=== PATIENT | female | born 1945 | race Hispanic/Latino ===

== ENCOUNTER 2019-02-20 16:25 | Emergency (ER) | payer OTHER ==
--- OUTSIDE RECORDS SUMMARY | 2019-02-20 16:29 | XMS REPORT | Clinical Summary ---
:1945 Author Organization [employer] Address [address] [place] [address] Care Team Providers Name Role Phone Kimmie Valdez MD Primary Care Provider Allergies Not on File Medications Not on file Active Problems Not on file Social History Tobacco Use Types Packs/Day Years Used Date Never Assessed Sex Assigned at Date Recorded Not on file Job Start Date Occupation Industry Not on file Not on file Not on file Travel History Travel Start Travel End No recent travel history available. Last Filed Vital Signs Not on file Plan of Treatment Health Maintenance Due Date Last Done Comments COLONOSCOPY SCREENING 1996 SHINGLES VACCINES (#1) 1996 BREAST CANCER SCREENING 02/21/2019 02/21/2017, 02/16/2016, 04/04/2013 INFLUENZA VACCINE 02/22/2019 65+ PNEUMOCOCCAL VACCINE Completed 06/02/2015, 06/07/2013 Procedures Procedure Name Priority Date/Time Associated Comments Diagnosis ESTIMATED GFR Routine 01/18/2019 12:07 Results for this PM CDT procedure are in the results section. 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 follow-up examination Vitamin B 12 deficiency Chronic kidney disease, stage III (moderate) (HCC) ESTIMATED GFR Routine 04/24/2018 10:05 Results for this AM CDT procedure are in the results section. URINALYSIS, AUTOMATED Routine 04/24/2018 10:05 Essential Results for this WITH MICROSCOPY AM CDT hypertension, procedure are in malignant the results Pemphigus vulgaris section. Chronic kidney disease, stage III (moderate) (HCC) Vitamin D deficiency VITAMIN D 25 HYDROXY Routine 04/24/2018 10:05 Essential Results for this LEVEL AM CDT hypertension, procedure are in malignant the results Pemphigus vulgaris section. Chronic kidney disease, stage III (moderate) (HCC) Vitamin D deficiency HC COMPLETE BLD COUNT Routine 04/24/2018 10:05 Essential Results for this W/AUTO DIFF AM CDT hypertension, procedure are in malignant the results Pemphigus vulgaris section. Chronic kidney disease, stage III (moderate) (HCC) Vitamin D deficiency THYROID STIMULATING Routine 04/24/2018 10:05 Essential Results for this HORMONE AM CDT hypertension, procedure are in malignant the results Pemphigus vulgaris section. Chronic kidney disease, stage III (moderate) (HCC) Vitamin D deficiency T4, FREE Routine 04/24/2018 10:05 Essential Results for this AM CDT hypertension, procedure are in malignant the results Pemphigus vulgaris section. Chronic kidney disease, stage III (moderate) (HCC) Vitamin D deficiency MAGNESIUM LEVEL Routine 04/24/2018 10:05 Essential Results for this AM CDT hypertension, procedure are in malignant the results Pemphigus vulgaris section. Chronic kidney disease, stage III (moderate) (HCC) Vitamin D deficiency LIPID PANEL Routine 04/24/2018 10:05 Essential Results for this AM CDT hypertension, procedure are in malignant the results Pemphigus vulgaris section. Chronic kidney disease, stage III (moderate) (HCC) Vitamin D deficiency COMPREHENSIVE Routine 04/24/2018 10:05 Essential Results for this METABOLIC PANEL AM CDT hypertension, procedure are in malignant the results Pemphigus vulgaris section. Chronic kidney disease, stage III (moderate) (HCC) Vitamin D deficiency after 02/19/2018 Results Estimated GFR (01/18/2019 12:07 PM CDT)Only the most recent of2 resultswithin the time period is included. Pathologist [facility] Estimated GFR 56 (A) mL/min/1.73 [facility] Comment: [address] G1 >=90 Normal or high G2 60-89Mildly decreased [id number] to moderately decreased [id number] to severely decreased G4 15-29Severely decreased G5 <15Kidney failure The eGFR was calculated using the Chronic Kidney Disease Epidemiology Collaboration (CKD-EPI) equation. Interpretation is based on recommendations of the National Kidney Foundation-Kidney Disease Outcomes Quality Initiative (NKF-KDOQI) published in 2014. Specimen Plasma specimen Performing Organization Address City/State/Zipcode Phone Number [facility] DEPARTMENT OF PATHOLOGY AND [address] [place] [address] [facility]OM[facility]IC[facility] [address] [place] [id number] [facility] CBC with platelet and differential (01/18/2019 12:07 PM CDT)Only the most recent of2 resultswithin the time period is included. [facility] WBC 6.03 4.50 - 11.00 k/uL [facility] RBC 3.31 (L) 4.20 - 5.50 m/uL [facility] HGB 9.6 (L) 12.0 - 16.0 g/dL [facility] HCT 31.5 (L) 37.0 - 47.0 % [facility] MCV 95.2 82.0 - 100.0 fL [facility] MCH 29.0 27.0 - 34.0 pg [facility] MCHC 30.5 (L) 31.0 - 37.0 g/dL [facility] RDW - SD 51.2 37.0 - 55.0 fL [facility] MPV 10.8 8.8 - 13.2 fL [facility] Platelet count 172 150 - 400 k/uL [facility] Nucleated RBC 0.00 /100 WBC [facility] Neutrophils 51.3 39.0 - 69.0 % [facility] Lymphocytes 34.7 25.0 - 45.0 % [facility] Monocytes 9.0 0.0 - 10.0 % [facility] Eosinophils 4.3 0.0 - 5.0 % [facility] Basophils 0.5 0.0 - 1.0 % [facility] Specimen Blood Performing Organization Address City/[facility] Phone Number [facility] DEPARTMENT OF PATHOLOGY AND [address] [place] [address] Thyroid stimulating hormone (01/18/2019 12:07 PM CDT)Only the most recent of2 resultswithin the time period is included. TSH 1.72 0.27 - 4.20 uIU/mL [facility] Specimen Plasma specimen Performing Organization Address [facility] Phone Number [facility] DEPARTMENT OF PATHOLOGY AND [address] [place] [address] T4, free (01/18/2019 12:07 PM CDT)Only the most recent of2 resultswithin the time period is included. T4, free 1.42 0.90 - 1.70 ng/dL [facility] Specimen Plasma specimen Performing Organization Address City/[facility] Phone Number [facility] DEPARTMENT OF PATHOLOGY AND [address] [place] [phone] [place] [address] B natriuretic peptide (01/18/2019 12:07 PM CDT) BNP 2,096 (H) 0 - 100 pg/mL [facility] Specimen Blood Performing Organization Address City/[facility]/Zipcode Phone Number [facility] DEPARTMENT OF PATHOLOGY AND [address] [place] [address] [address] [place] [address] Magnesium level (01/18/2019 12:07 PM CDT)Only the most recent of2 resultswithin the time period is included. Magnesium 2.1 1.6 - 2.4 mg/dL [facility] Specimen Plasma specimen Performing Organization Address [facility] Phone Number [facility] DEPARTMENT OF PATHOLOGY AND [address] [place] [address] [address] [place] [address] Comprehensive metabolic panel (01/18/2019 12:07 PM CDT)Only the most recent of2 resultswithin the time period is included. Sodium 143 135 - 148 [facility] mEq/L [facility] Potassium 3.1 (L) 3.5 - 5.0 [facility] mEq/L [facility] Chloride 105 98 - 112 mEq/L [facility] CO2 27 24 - 31 mEq/L [facility] Anion gap 11@ANIO 7 - 15 mEq/L [facility] BUN 27 (H) 8 - 23 mg/dL [facility] Creatinine 1.00 (H) 0.50 - 0.90 [facility] mg/dL [facility] Glucose 92 65 - 99 mg/dL [facility] Calcium 8.7 (L) 8.8 - 10.2 [facility] mg/dL [facility] Protein 7.1 6.3 - 8.3 g/dL [facility] Comment: [place] 4.6-7.0 g/dL HOSPITAL 1 week 4.4-7.6 g/dL 7 months-1year5.1-7.3 g/dL 1-2 years5.6-7.5 g/dL >3 years6.0-8.0 g/dL 18-150 6.3-8.3 g/dL Albumin 3.7 3.5 - 5.0 g/dL [facility] A/G ratio 1.1 0.7 - 3.8 [facility] Alkaline phosphatase 66 35 - 104 U/L [facility] AST 21 10 - 35 U/L [facility] ALT 9 5 - 50 U/L [facility] Total bilirubin 0.6 0.0 - 1.2 [facility] mg/dL [facility] Specimen Plasma specimen Performing Organization Address City/[facility]/Zipcode Phone Number [facility] DEPARTMENT OF PATHOLOGY AND [address] [place] [address] GENOMIC MEDICINE [facility] [address] [place] [id number] [facility] Vitamin D 25 hydroxy level (04/24/2018 10:05 AM CDT) Sarah Agrawal Vitamin D, 19.6 (L) 30.0 - 150.0 [facility] DEPARTMENT OF 25-hydroxy Comment: ng/mL PATHOLOGY AND This assay reports the sum of 25-hydroxy vitamin D3 and 25-hydroxy vitamin GENOMIC MEDICINE D2. Reference range: 0-17 years: Deficiency: less than 20ng/mL Optimum level: greater than or equal to 20 ng/mL. 18 years and older: Deficiency: less than 20ng/mL Insufficiency: 20-29 ng/mL Optimum Level: 30-80 ng/mL The assay reportable range is 3.4155.9 ng/mL. Levels higher than 150 ng/mL may be associated with toxicity. If toxicity is clinically suspected and the reported result is >155.9 ng/mL,contact lab for alternative methods to obtain a definitivelevel. If separate quantitation of 25-hydroxy vitamin D3 and 25-hydroxy vitamin D2 is needed, please contact lab for alternative methods. Specimen Blood Performing Organization Address City/State/Zipcode Phone Number [facility] DEPARTMENT OF PATHOLOGY AND [address] [place] [address] [facility] Urinalysis, automated with microscopy (04/24/2018 10:05 AM CDT) Pathologist Tanja Color, UA Yellow [facility] DEPARTMENT OF PATHOLOGY AND GENOMIC MEDICINE Appearance, UA Clear [facility] DEPARTMENT OF PATHOLOGY AND GENOMIC MEDICINE Specific gravity, 1.014 1.001 - 1.035 [facility] DEPARTMENT OF UA PATHOLOGY AND GENOMIC MEDICINE pH, UA 5.0 5.0 - 8.5 [facility] DEPARTMENT OF PATHOLOGY AND GENOMIC MEDICINE Protein, UA Negative Negative [facility] DEPARTMENT OF PATHOLOGY AND GENOMIC MEDICINE Glucose, UA Negative Negative [facility] DEPARTMENT OF PATHOLOGY AND GENOMIC MEDICINE Ketones, UA Negative Negative [facility] DEPARTMENT OF PATHOLOGY AND GENOMIC MEDICINE Bilirubin, UA Negative Negative [facility] DEPARTMENT OF PATHOLOGY AND GENOMIC MEDICINE Blood, UA Negative Negative [facility] DEPARTMENT OF PATHOLOGY AND GENOMIC MEDICINE Nitrite, UA Negative Negative [facility] DEPARTMENT OF PATHOLOGY AND GENOMIC MEDICINE Urobilinogen, UA Negative <2.0 [facility] DEPARTMENT OF PATHOLOGY AND GENOMIC MEDICINE Leukocyte esterase, Moderate (A) Negative [facility] DEPARTMENT OF UA PATHOLOGY AND GENOMIC MEDICINE Round epithelial Few 0 - 1 /HPF [facility] DEPARTMENT OF cells, PATHOLOGY AND GENOMIC MEDICINE WBC, UA 6-10 (H) 0 - 4 /HPF [facility] DEPARTMENT OF PATHOLOGY AND GENOMIC MEDICINE RBC, UA 0-5 0 - 5 /HPF [facility] DEPARTMENT OF PATHOLOGY AND GENOMIC MEDICINE Bacteria, UA None seen None seen [facility] DEPARTMENT OF PATHOLOGY AND GENOMIC MEDICINE Hyaline casts, UA 3-5 /LPF [facility] DEPARTMENT OF PATHOLOGY AND GENOMIC MEDICINE Yeast, UA None seen [facility] DEPARTMENT OF PATHOLOGY AND GENOMIC MEDICINE Yeast with None seen [facility] DEPARTMENT OF pseudohyphae, PATHOLOGY AND GENOMIC MEDICINE Specimen Urine Performing Organization Address City/State/Zipcode Phone Number [facility] DEPARTMENT OF PATHOLOGY AND [address] [place] [address] [facility] MEDICINE Lipid panel (04/24/2018 10:05 AM CDT) Cholesterol 151 <200 mg/dL [facility] DEPARTMENT OF PATHOLOGY AND GENOMIC MEDICINE Triglycerides 70 <150 mg/dL [facility] DEPARTMENT OF PATHOLOGY AND GENOMIC MEDICINE HDL cholesterol 72 >40 mg/dL [facility] DEPARTMENT OF PATHOLOGY AND GENOMIC MEDICINE LDL cholesterol 70Comment: Result <100 mg/dL [facility] DEPARTMENT obtained by direct OF PATHOLOGY AND LDL measurement GENOMIC MEDICINE Lipid panel SeeBelow [facility] DEPARTMENT interpretation Comment: OF PATHOLOGY AND Total Cholesterol (mg/dL) GENOMIC MEDICINE <200 Desirable [id number] >=240High Triglycerides (mg/dL) <150 Normal [id number] 200-499High >=500Very high HDL Cholesterol (mg/dL) <40Low (male) <40Low (female) LDL Cholesterol (mg/dL) <100 Optimal 100-129Near or above optimal [id number] 160-189High >=190Very high Risk Catergories that modify LDL goals. Risk CatergoriesLDL goal (mg/dL) CHD and CHD risk equivalent<100 (10-year risk >20%) Multiple (2+) risk factors <130 (10-year risk=<20%) 0-1 risk factors <160 (<10-year risk) Defining levels of lipids in metabolic syndrome Triglycerides>=150 mg/dL HDL Cholesterol Men<40 mg/dL Women<40 mg/dL Non-HDL cholesterol is a second target for therapy in persons with high triglycerides (>=200 mg/dL) Specimen Plasma specimen Performing Organization Address City/State/Zipcode Phone Number [facility] DEPARTMENT OF PATHOLOGY AND [address] [place] [phone] [facility] after 02/19/2018 Advance Directives Patient has advance care planning documents on file. For more information, please contact:[place] [address]
--- OUTSIDE RECORDS SUMMARY | 2019-02-20 16:33 | XMS REPORT | Continuity of Care Document ---
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 [facility], [facility] [place] LT ELBOW PN Active 05/28/[address] LT ELBOW JOINT Active 05/28/20 [facility] INFECTION, LT [address] [place] [address] ELBOW PN Center MRSA2, 3 Active Problem 05/26/2015 06/03/13 MRSA pcr OPI Problem added by Discern Expert. [place] CATARACT1 Resolved Problem 06/06/2015 bilateral [facility] eye [facility], CARLA Horta Fracture Active Problem 06/06/2015 [facility], OPID [place] Hernia Resolved Problem 06/06/2015 [facility], OPID [place] Acute Resolved Problem 12/27/2018 [facility] pneumococcal Medical bronchitis Center, [place],M H OPID [place] Atrial Resolved Problem 12/27/2018 [facility] fibrillation Medical [place], [place],[facility] H OPID [place] CATARACT1 Resolved Problem 12/27/2018 bilateral eye [place], [place] Active Problem 12/27/2018 [facility], [place], [place] H OPID [place] NSTEMI - Non-ST Active Problem 12/27/2018 [facility] elevation [facility], [place],[facility] H OPID [place] 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 [facility] vulgaris [facility], [place],M H OPID [place] Septicemia Active Problem 12/27/2018 [facility], [place], [place],M H CARLA Horta Takotsubo Active Problem 12/27/2018 [facility] cardiomyopathy Medical Center, [place], [place],M H CARLA Horta DIR INFCT OF UNSP Active [facility] ELBOW IN Medical INFEC/PARASTC Center ABNORMAL LABS Active [place] DYSPNEA, Active [facility] UNSPECIFIED [place] ACUTE DIASTOLIC Active [facility] (CONGESTIVE) [place] HEART FAILU Medications Medication Details Route Status Patient Ordering Order Source Instructions Provider Date Warfarin 6 mg, 3 tab, Inactive Route: PO, 2019 [place] Drug form: TAB, Q5PM, Dosing Weight 57.455, kg, Start date: 12/25/18 17:00:00 CDT, Duration: 30 day, Stop date: 01/23/19 17:00:00 CDTNotes: Nurse to ensure documentation of patient education per anticoagulatio n policy. Avoid large intake of vitamin-K containing foods diet. (Same As: Coumadin) WASTE: F/P - P Waste Black; E - P Waste Black warfarin 2 mg oral 6 mg=3 tab, Active tablet PO, Q5PM, # 42 2019 [place] tab, 0 Refill(s), Pharmacy: [facility] Furosemide 40 MG 40 mg=1 tab, Active Oral Tablet PO, Daily, # 2019 [place] [Lasix] 30 tab, 0 Refill(s), Pharmacy: [facility] lisinopril 20 mg 20 mg=1 tab, Active 12/25[facility] oral tablet PO, BID, # 60 2019 [place] tab, 0 Refill(s), Pharmacy: [facility] atorvastatin 10 mg 20 mg=2 tab, Active oral tablet PO, Bedtime, # 2019 [place] 60 tab, 0 Refill(s), Pharmacy: [facility] Furosemide 40 MG 40 mg, 1 tab, Inactive 12/25[facility] Oral Tablet Route: PO, 2019 [place] [Lasix] Drug form: TAB, Daily, Dosing Weight 53.364, kg, Start date: 12/25/18 9:00:00 CDT, Duration: 30 day, Stop date: 01/23/19 9:00:00 CDTNotes: (Same as: Lasix) May cause GI upset. Give with food or milk. Omeprazole 40 mg, Route: No Longer PO, Drug form: Active 2019 [place] DRC, Daily, Dosing Weight 53.364, kg, Start date: 12/23/18 9:00:00 CDT, Duration: 30 day, Stop date: 01/21/19 9:00:00 CDT Simvastatin 80 mg, 2 tab, No Longer Route: PO, Active 2019 [place] Drug form: TAB, Bedtime, Dosing Weight 53.364, kg, Start date: 12/22/18 21:00:00 CDT, Duration: 30 day, Stop date: 01/20/19 21:00:00 CDTNotes: (Same as: Zocor) metoprolol 50 mg, 1 tab, No Longer tartrate Route: PO, Active 2019 [place] Drug form: TAB, Q12H, Dosing Weight 53.364, kg, Start date: 12/22/18 21:00:00 CDT, Duration: 30 day, Stop date: 01/21/19 9:00:00 CDTNotes: (Same as: Lopressor) hydrochlorothiazid 12.5 mg, 0.5 No Longer e 25 mg oral tab, Route: Active 2019 [place] tablet PO, Drug form: TAB, BID, Start date: 12/22/18 21:00:00 CDT, Duration: 30 day, Stop date: 01/21/19 9:00:00 CDTNotes: (Same as: Hydrodiuril) With food. lisinopril 20 mg, 1 tab, No Longer Route: PO, Active 2019 [place] Drug form: TAB, BID, Start date: 12/22/18 21:00:00 CDT, Duration: 30 day, Stop date: 01/21/19 9:00:00 CDTNotes: (Same as: Prinivil, Zestril) atorvastatin 20 mg, 2 tab, No Longer Route: PO, Active 2019 [place] Drug form: TAB, Bedtime, Dosing Weight 55.455, kg, Start date: 12/22/18 21:00:00 CDT, Duration: 30 day, Stop date: 01/20/19 21:00:00 CDTNotes: (Same As: Lipitor) Warfarin 5 mg, 1 tab, No Longer Route: PO, Active 2018 [place] Drug form: TAB, Q5PM, Dosing Weight 57.455, kg, Start date: 12/22/18 17:00:00 CDT, Duration: 30 day, Stop date: 01/20/19 17:00:00 CDTNotes: Nurse to ensure documentation of patient education per anticoagulatio n policy. Avoid large intake of vitamin-K containing foods diet. WASTE: F/P - P Waste Black; E - P Waste Black (Same As: Coumadin) Hydrochlorothiazid 1 tab, Route: Inactive e 12.5 MG / PO, Drug Form: 2019 [place] Lisinopril 20 MG TAB, Dosing Oral Tablet Weight 53.364, kg, BID, Start date: 12/22/18 17:00:00 CDT, Duration: 30 day, Stop date: 01/21/19 9:00:00 CDT Protonix 40 mg, 1 tab, No Longer Route: PO, Active 2018 [place] Drug form: ECTAB, Before Dinner, Start date: 12/22/18 16:30:00 CDT, Duration: 30 day, Stop date: 01/20/19 16:30:00 CDTNotes: Tablet should not be chewed or crushed. (Same as: Protonix) Lasix 40 mg, 4 mL, No Longer Route: IV, Active 2018 [place] Drug form: INJ, Q12H, Dosing Weight 55.455, kg, Start date: 12/22/18 9:00:00 CDT, Duration: 30 day, Stop date: 01/20/19 21:00:00 CDTNotes: (Same as: Lasix) MEDICATION WASTE Product Size: 40 mg Product Wasted: ___ mg Aspirin 81 mg, 1 tab, No Longer Route: PO, Active 2018 [place] Drug form: ECTAB, Daily, Dosing Weight 55.455, kg, Start date: 12/22/18 9:00:00 CDT, Duration: 30 day, Stop date: 01/20/19 9:00:00 CDTNotes: Do not crush or chew. (Same As: Ecotrin) predniSONE 10 mg 4 tabs, PO, No Longer oral tablet Daily, 0 Active 2018 [place] Refill(s) Enoxaparin 40 mg, Route: Inactive SUB-Q, Drug 2018 [place] form: INJ, [id number], Dosing Weight 55.455, kg, Start date: 12/21/18 23:00:00 CDT, Duration: 30 day, Stop date: 01/19/19 23:00:00 CDT Bisacodyl 10 mg, 1 supp, No Longer Route: CO, Active 2018 [place] Drug form: SUPP, Daily, Dosing Weight 55.455, kg, PRN Constipation, Start date: 12/21/18 22:15:00 CDT, Duration: 30 day, Stop date: 01/20/19 22:14:00 CDTNotes: (Same As: Dulcolax, Bisco-Lax) Ondansetron 4 mg, 2 mL, No Longer Route: IVP, Active 2018 [place] Drug form: INJ, Q8H, Dosing Weight 55.455, kg, PRN Nausea & Vomiting, Start date: 12/21/18 22:15:00 CDT, Duration: 30 day, Stop date: 01/20/19 22:14:00 CDTNotes: (Same as: Tori) MEDICATION WASTE Product Size: 4 mg Product Wasted: ___ mg Melatonin 3 mg, 1 tab, No Longer Route: PO, Active 2018 [place] Drug form: TAB, Bedtime, Dosing Weight 55.455, kg, PRN Insomnia, Start date: 12/21/18 22:15:00 CDT, Duration: 30 day, Stop date: 01/20/19 22:14:00 CDTNotes: (Same as: Melatonin) Acetaminophen 650 mg, 2 tab, No Longer Route: PO, Active 2019 [place] Drug form: TAB, Q4H, Dosing Weight 55.455, kg, PRN Pain 1-3/Temp > 100.4 F, Start date: 12/21/18 22:15:00 CDT, Duration: 30 day, Stop date: 01/20/19 22:14:00 CDTNotes: Do not exceed 4 gm/day. (Same as: Tylenol) Glucagon 1 mg, Route: No Longer IM, Drug form: Active 2018 [place] PDR/INJ, PRN, Dosing Weight 55.455, kg, PRN Blood Glucose Results, Start date: 12/21/18 22:15:00 CDT, Duration: 30 day, Stop date: 01/20/19 22:14:00 CDT Dextrose 50% 25 gm, 50 mL, No Longer Syringe Route: IVP, Active 2018 [place] Drug Form: INJ, Dosing Weight 55.455, kg, PRN, PRN Blood Glucose Results, Start date: 12/21/18 22:15:00 CDT, Duration: 30 day, Stop date: 01/20/19 22:14:00 CDT potassium 30 mmol, 10 No Longer phosphate mL, Route: Active 2018 [place] IVPB, PRN, Dosing Weight 55.455, kg, PRN Abnormal Lab Result, For NON-ICU Patients Only., Start date: 12/21/18 22:12:00 CDT, Duration: 30 day, Stop date: 01/20/19 22:11:00 CDTNotes: (Same as: K Phosphate.) Do not infuse phosphorous concurrently in the same line as TPN or IVF that contains calcium. For double lumen central lines, phosphorous may be infused in a separate lumen from TPN. 1 mMol phoshate has 1.47 mEq potassium Infuse over 4 hours Calcium Gluconate 2 gm, 20 mL, No Longer Route: IVPB, Active 2018 [place] PRN, Dosing Weight 55.455, kg, PRN Abnormal Lab Result, For NON-ICU Patients Only., Start date: 12/21/18 22:12:00 CDT, Duration: 30 day, Stop date: 01/20/19 22:11:00 CDTNotes: WASTE: F/P - Sink; E - Municipal Trash Bin Magnesium Sulfate 2 gm, 50 mL, No Longer Route: IVPB, Active 2018 [place] Drug form: INJ, PRN, Dosing Weight 55.455, kg, PRN Abnormal Lab Result, For NON-ICU Patients Only., Start date: 12/21/18 22:12:00 CDT, Duration: 30 day, Stop date: 01/20/19 22:11:00 CDTNotes: WASTE: F/P - Sink; E - Municipal Trash Bin sodium phosphate 15 mmol, 5 mL, No Longer Route: IVPB, Active 2018 [place] PRN, Dosing Weight 55.455, kg, PRN Abnormal Lab Result, For NON-ICU Patients Only., Start date: 12/21/18 22:12:00 CDT, Duration: 30 day, Stop date: 01/20/19 22:11:00 CDTNotes: Infuse over 4 hour. Do not infuse phosphorous concurrently in the same line as TPN or IVF that contains calcium. For double lumen central lines, phosphorous may be infused in a separate lumen from TPN. potassium 2 pkt, Route: No Longer phosphate-sodium PO, Drug Form: Active 2018 [place] phosphate 250 PDR/REC, mg-280 mg-160 mg Dosing Weight oral powder for 55.455, kg, reconstitution PRN, PRN Abnormal Lab Result, For NON-ICU Patients Only, Start date: 12/21/18 22:12:00 CDT, Duration: 30 day, Stop date: 01/20/19 22:11:00 CDTNotes: (Same as: Phos-NaK) Each 1.5 gm pkt has 250mg phosphorous. Mix w/2.5oz water and stir. Magnesium Oxide 800 mg, 2 tab, No Longer Route: PO, Active 2018 [place] Drug form: TAB, PRN, Dosing Weight 55.455, kg, PRN Abnormal Lab Result, For NON-ICU Patients Only., Start date: 12/21/18 22:12:00 CDT, Duration: 30 day, Stop date: 01/20/19 22:11:00 CDTNotes: (Same as: Mag-Ox 400) Magnesium oxide [id number] elemental magnesium Dose=____mg magnesium oxide (___mg elemental magnesium) Potassium Chloride 20 mEq, 15 mL, No Longer Route: [place], Active 2018 [place] Drug form: LIQ, PRN, Dosing Weight 55.455, kg, PRN Abnormal Lab Result, For NON-ICU Patients Only, Start date: 12/21/18 22:12:00 CDT, Duration: 30 day, Stop date: 01/20/19 22:11:00 CDTNotes: (Same as: Potassium Chloride) Lasix 40 mg, 4 mL, Inactive Route: IVP, 2018 [place] Drug form: INJ, ONCE, Dosing Weight 55.455, kg, Priority: STAT, Start date: 12/21/18 20:59:00 CDT, Stop date: 12/21/18 20:59:00 CDTNotes: (Same as: Lasix) MEDICATION WASTE Product Size: 40 mg Product Wasted: ___ mg Saline Flush 0.9% 10 mL, Route: No Longer IVP, Drug Active 2018 [place] Form: INJ, Dosing Weight 55.455, kg, PRN, PRN Line Flush, Start date: 12/21/18 20:00:00 CDT, Duration: 30 day, Stop date: 01/20/19 19:59:00 CDTNotes: (Same as: BD Posiflush) Warfarin 4 mg, 2 tab, Inactive Route: PO, 2019 [facility] Drug form: TAB, Q5PM, Dosing Weight 62.273, kg, Priority: NOW, Start date: 10/22/18 17:47:00 CDT, Duration: 1 doses or times, Stop date: 10/22/18 17:47:00 CDTNotes: Nurse to ensure documentation of patient education per anticoagulatio n policy. Avoid large intake of vitamin-K containing foods diet. (Same As: Coumadin) WASTE: F/P - P Waste Black; E - P Waste Black Furosemide 20 MG 20 mg=1 tab, Active Oral Tablet PO, Daily, # 2019 [place] [Lasix] 30 tab, 0 Refill(s) potassium chloride 40 mEq, 2 tab, Inactive 20 mEq oral Route: PO, 2019 [facility] tablet, extended Drug form: release ERTAB, ONCE, Dosing Weight 62.273, kg, Start date: 10/22/18 16:14:00 CDT, Stop date: 10/22/18 16:14:00 CDTNotes: (Same as: K-Dur 20) "Do Not Crush" Give with food and full glass of water For patients unable to swallow tablet, dissolve in one half glass of water. Allow about 2 minutes for the tablets to disintegrate. Stir before giving to prepare slurry and administer. Please exclude Patients with feeding tube less than 14 Greek (Dobhoff, J-tube etc) and pediatric and patients. Aspirin 81 MG 81 mg=1 tab, Active Chewable Tablet PO, Bedtime, # 2019 [facility] 30 tab, 3 Refill(s) metoprolol 50 mg=1 tab, Active tartrate 50 mg PO, Q12H, # 60 2019 [facility] oral tablet tab, 0 Refill(s) metoprolol 50 mg, 1 tab, No Longer tartrate Route: PO, 2018 [facility] Drug form: TAB, Q12H, Dosing Weight 62.273, kg, Start date: 10/21/18 21:00:00 CDT, Duration: 30 day, Stop date: 11/20/18 9:00:00 CDTNotes: (Same as: Lopressor) pantoprazole 40 mg, 1 tab, No Longer Route: PO, 2018 [facility] Drug form: ECTAB, Before Dinner, Dosing Weight 65.455, kg, Start date: 10/21/18 16:30:00 CDT, Duration: 30 day, Stop date: 11/19/18 16:30:00 CDTNotes: Tablet should not be chewed or crushed. (Same as: Protonix) Insulin Glargine 15 unit, 0.15 No Longer mL, Route: 2018 [facility] SUB-Q, Drug form: SOLN, Daily, Dosing Weight 65.455, kg, Start date: 10/21/18 9:00:00 CDT, Duration: 30 day, Stop date: 11/19/18 9:00:00 CDTNotes: (Same as: Lantus) Do not hold insulin without contacting prescriber WASTE: F/P - Black; E - Municipal Trash Bin "single patient use only" Saline Flush 0.9% 10 ml, Route: No Longer IVP, Drug Active 2018 [facility] Form: INJ, Dosing Weight 65.455, kg, Q12H, Start date: 10/21/18 9:00:00 CDT, Duration: 30 day, Stop date: 11/19/18 21:00:00 CDTNotes: (Same as: BD Posiflush) Furosemide 40 mg, 4 mL, Inactive Route: IVP, 2018 [facility] Drug form: INJ, Q12H, Dosing Weight 65.455, kg, Start date: 10/21/18 9:00:00 CDT, Duration: 30 day, Stop date: 11/19/18 21:00:00 CDTNotes: (Same as: Lasix) MEDICATION WASTE Product Size: 40 mg Product Wasted: ___ mg Aspirin 81 MG 81 mg, 1 tab, No Longer Chewable Tablet Route: PO, Active 2018 [facility] Drug form: CHEWTAB, Bedtime, Dosing Weight 65.455, kg, Start date: 10/21/18 9:00:00 CDT, Duration: 30 day, Stop date: 11/19/18 21:00:00 CDTNotes: Take with food. Vitamin B 12 1,000 Active microgram, IM, 2018 [facility] takes IM at doctor's office once a month, 0 Refill(s) Insulin Lispro 6 unit, 0.06 No Longer mL, Route: Active 2018 [facility] SUB-Q, Drug form: SOLN, TID-Before Meals, Dosing Weight 65.455, kg, PRN Blood Glucose Results, Start date: 10/21/18 0:36:00 CDT, Duration: 30 day, Stop date: 11/20/18 0:35:00 CDTNotes: (Same as: Humalog ) Roll in palms of hands gently; Do not shake `vigorously. "Single Patient Use Only " WASTE: F/P - Black; E - Municipal Trash Bin Stable for 28 days at room temperature. Expires in days from Date Glucagon 1 mg, Route: No Longer IM, Drug form: Active 2018 [facility] PDR/INJ, PRN, Dosing Weight 65.455, kg, PRN Blood Glucose Results, Start date: 10/21/18 0:36:00 CDT, Duration: 30 day, Stop date: 11/20/18 0:35:00 CDT Dextrose 50% 12.5 gm, 25 No Longer Syringe mL, Route: Active 2018 [facility] IVP, Drug Form: INJ, Dosing Weight 65.455, kg, PRN, PRN Blood Glucose Results, Start date: 10/21/18 0:36:00 CDT, Duration: 30 day, Stop date: 11/20/18 0:35:00 CDT carvedilol 25 mg 25 mg=1 tab, No Longer oral tablet PO, BID, # 180 Active 2018 tab, 0 Refill(s) omeprazole 40 mg 40 mg=1 cap, Active oral delayed PO, Daily, # 2019 release capsule 30 cap, 0 Refill(s) baclofen 10 mg 10 mg=1 tab, Active oral tablet PO, BID, PRN 2019 Mus[place] Sp[place], 0 Refill(s) Warfarin Sodium 4 4 mg=1 tab, Active [place] Oral Tablet PO, Daily, # 2019 [Coumadin] 30 tab, 0 Refill(s) Alendronic acid 70 70 mg=1 tab, Active [place] Oral Tablet PO, Q7D, with 2019 6 to 8 ounces plain water, at least 30 minutes before first food, beverage, or medication of the day, # 12 tab, 3 Refill(s) simvastatin 80 mg 80 mg=1 tab, Active oral tablet PO, Bedtime, 0 2018 Refill(s) Hydrochlorothiazid 1 tab, PO, Active e 12.5 MG / BID, 0 2018 Lisinopril 20 MG Refill(s) Oral Tablet Mirtazapine 7.5 MG 7.5 mg=1 tab, No Longer Oral Tablet PO, Bedtime, # Active 2019 30 tab, 0 Refill(s) Calcium Gluconate 2 gm, 20 mL, No Longer Route: IVPB, Active 2018 PRN, Dosing Weight 65.455, kg, PRN Abnormal Lab Result, For NON-ICU Patients Only., Start date: 10/20/18 23:07:00 CDT, Duration: 30 day, Stop date: 11/19/18 23:06:00 CDTNotes: WASTE: F/P - Sink; E - Municipal Trash Bin Magnesium Oxide 800 mg, 2 tab, No Longer Route: PO, Active 2018 [facility] Drug form: TAB, PRN, Dosing Weight 65.455, kg, PRN Abnormal Lab Result, For NON-ICU Patients Only., Start date: 10/20/18 23:07:00 CDT, Duration: 30 day, Stop date: 11/19/18 23:06:00 CDTNotes: (Same as: Mag-Ox 400) Magnesium oxide [id number] elemental magnesium Dose=____mg magnesium oxide (___mg elemental magnesium) potassium 2 pkt, Route: No Longer phosphate-sodium PO, Drug Form: Active 2018 [facility] phosphate 250 PDR/REC, mg-280 mg-160 mg Dosing Weight oral powder for 65.455, kg, reconstitution PRN, PRN Abnormal Lab Result, For NON-ICU Patients Only, Start date: 10/20/18 23:07:00 CDT, Duration: 30 day, Stop date: 11/19/18 23:06:00 CDTNotes: (Same as: Phos-NaK) Each 1.5 gm pkt has 250mg phosphorous. Mix w/2.5oz water and stir. Magnesium Sulfate 2 gm, 50 mL, No Longer Route: IVPB, Active 2018 [facility] Drug form: INJ, PRN, Dosing Weight 65.455, kg, PRN Abnormal Lab Result, For NON-ICU Patients Only., Start date: 10/20/18 23:07:00 CDT, Duration: 30 day, Stop date: 11/19/18 23:06:00 CDTNotes: WASTE: F/P - Sink; E - Municipal Trash Bin potassium 30 mmol, 10 No Longer phosphate mL, Route: Active 2018 [facility] IVPB, PRN, Dosing Weight 65.455, kg, PRN Abnormal Lab Result, For NON-ICU Patients Only., Start date: 10/20/18 23:07:00 CDT, Duration: 30 day, Stop date: 11/19/18 23:06:00 CDTNotes: (Same as: K Phosphate.) Do not infuse phosphorous concurrently in the same line as TPN or IVF that contains calcium. For double lumen central lines, phosphorous may be infused in a separate lumen from TPN. 1 mMol phoshate has 1.47 mEq potassium Infuse over 4 hours sodium phosphate 15 mmol, 5 mL, No Longer Route: IVPB, Active 2018 [facility] PRN, Dosing Weight 65.455, kg, PRN Abnormal Lab Result, For NON-ICU Patients Only., Start date: 10/20/18 23:07:00 CDT, Duration: 30 day, Stop date: 11/19/18 23:06:00 CDTNotes: Infuse over 4 hour. Do not infuse phosphorous concurrently in the same line as TPN or IVF that contains calcium. For double lumen central lines, phosphorous may be infused in a separate lumen from TPN. Saline Flush 0.9% 10 ml, Route: No Longer IVP, Drug Active 2018 [facility] Form: INJ, Dosing Weight 65.455, kg, PRN, PRN Line Flush, Start date: 10/20/18 23:07:00 CDT, Duration: 30 day, Stop date: 11/19/18 23:06:00 CDTNotes: (Same as: BD Posiflush) Potassium Chloride 10 mEq, 100 No Longer mL, Route: 2018 [facility] IVPB, Drug form: INJ, PRN, Dosing Weight 65.455, kg, PRN Abnormal Lab Result, For NON-ICU Patients Only, Start date: 10/20/18 23:07:00 CDT, Duration: 30 day, Stop date: 11/19/18 23:06:00 CDTNotes: Infuse at a rate of 10 mEq/hr. (Same as: KCL) Ondansetron 4 mg, 2 mL, No Longer Route: IVP, Active 2018 [facility] Drug form: INJ, Q8H, Dosing Weight 65.455, kg, PRN Nausea & Vomiting, Start date: 10/20/18 23:07:00 CDT, Duration: 30 day, Stop date: 11/19/18 23:06:00 CDTNotes: (Same as: Zofran) MEDICATION WASTE Product Size: 4 mg Product Wasted: ___ mg Lasix 20 mg, 2 mL, No Longer Route: IVP, Active 2018 [facility] Drug form: INJ, ONCE, Dosing Weight 65.455, kg, Start date: 10/20/18 22:59:00 CDT, Stop date: 10/20/18 22:59:00 CDTNotes: (Same as: Lasix) MEDICATION WASTE Product Size: 40 mg Product Wasted: ___ mg Azithromycin 500 mg, Route: Inactive IVPB, ONCE, 2018 [facility] Dosing Weight 65.455, kg, Priority: STAT, Start date: 10/20/18 22:13:00 CDT, Stop date: 10/20/18 22:13:00 CDT, ABX Indication: PneumoniaNotes : (Same As: Zithromax IV) Ceftriaxone 1 gm, Route: Inactive IV, ONCE, 2018 [facility] Dosing Weight 65.455, kg, Priority: STAT, Start date: 10/20/18 22:12:00 CDT, Stop date: 10/20/18 22:12:00 CDT, ABX Indication: PneumoniaNotes : (Same As: Rocephin). Use with 100 mL NS and infuse over 30 min MEDICATION WASTE Product Size: 1000 mg Product Wasted: ___ mg Aspirin 325 MG 325 mg, 1 tab, Inactive Oral Tablet Route: PO, 2018 [facility] Drug form: TAB, ONCE, Dosing Weight 65.455, kg, Priority: STAT, Start date: 10/20/18 21:26:00 CDT, Stop date: 10/20/18 21:26:00 CDTNotes: Take with food. tramadol 50 mg=1 tab, Active [place] hydrochloride 50 PO, Q6H, PRN 2014 [facility] Oral Tablet Pain Score [facility] 1-3, # 40 tab, 0 Refill(s) amLODIPine 5 mg 5 mg=1 tab, Active [place] oral tablet PO, Bedtime, # 2015 [facility] 30 tab, 0 Center Refill(s) Saline Flush 0.9% 10 mL, Route: No Longer [place] IVP, Drug Active 2014 [facility] Form: INJ, Center Dosing Weight 65.455, kg, Q8H, Start date: 06/02/15 16:00:00, Duration: 30 day, Stop date: 07/02/15 8:00:00Notes: (Same as: BD Posiflush) lidocaine 1% 50 mg, 5 mL, No Longer [place] Route: MISC, Active 2014 [facility] Drug Form: Center INJ, Dosing Weight 65.455, kg, ONCALL, Start date: 06/02/15 11:00:00, Duration: 30 day, Stop date: 07/02/15 10:59:00Notes: (Same as: Xylocaine) Saline Flush 0.9% 10 mL, Route: No Longer [facility] IVP, Drug Active 2014 Medical Form: INJ, [place] Dosing Weight 65.455, kg, PRN, PRN Line Flush, Start date: 06/02/15 11:00:00, Duration: 30 day, Stop date: 07/02/15 10:59:00Notes: (Same as: BD Posiflush) Vancomycin 500 mg, Route: No Longer [facility] IV, [id number], Active 2014 Medical Dosing Weight [place] 65.455, kg, Start date: 06/02/15 9:00:00, Duration: 30 day, Stop date: 07/01/15 23:00:00Notes: TIME CRITICAL MEDICATION (Same As: Vancocin) Pneumovax 23 0.5 mL, Route: Inactive [place] IM, Drug Form: 2014 Medical INJ, Daily, Center Start date: 06/02/15 9:00:00, Duration: 1 doses or times, Stop date: 06/02/15 9:00:00Notes: (Same as: Pneumovax 23) Refrigerate metoprolol 25 mg, 1 tab, No Longer [facility] tartrate Route: PO, Active 2014 [facility] Drug form: Center TAB, Q12H, Dosing Weight 65.455, kg, Start date: 06/02/15 9:00:00, Duration: 30 day, Stop date: 07/01/15 21:00:00Notes: (Same as: Lopressor) lidocaine 1% 50 mg, 5 mL, No Longer [facility] Route: Active 2014 Medical INTRADERM, Center Drug Form: INJ, Dosing Weight 65.455, kg, ONCALL, Start date: 06/01/15 8:00:00, Duration: 30 day, Stop date: 07/01/15 7:59:00Notes: (Same as: Xylocaine) Saline Flush 0.9% 10 mL, Route: No Longer [facility] IVP, Drug Active 2014 Medical Form: INJ, Center Dosing Weight 65.455, kg, Q8H, Start date: 06/01/15 8:00:00, Duration: 30 day, Stop date: 07/01/15 0:00:00Notes: (Same as: BD Posiflush) Sodium Chloride 5 mL, Route: No Longer [facility] 0.154 MEQ/ML INTRADERM, Active 2014 Medical Injectable Drug Form: [place] Solution INJ, Dosing Weight 65.455, kg, ONCALL, Start date: 06/01/15 8:00:00, Duration: 30 day, Stop date: 07/01/15 7:59:00Notes: not for pediatric use. Saline Flush 0.9% 10 mL, Route: No Longer [facility] IVP, Drug Active 2014 Medical Form: INJ, Center Dosing Weight 65.455, kg, PRN, PRN Line Flush, Start date: 06/01/15 7:48:00, Duration: 30 day, Stop date: 07/01/15 7:47:00Notes: (Same as: BD Posiflush) cefepime 1 gm, Route: No Longer [facility] IVPB, Drug Active 2014 Medical form: INJ, Center [id number], Dosing Weight 65.455, kg, (CrCl >/=50 ml/min), Start date: 05/31/15 8:00:00, Duration: 30 day, Stop date: 06/30/15 0:00:00Notes: (Same As: Maxipime) MEDICATION WASTE Product Size: 1000 mg Product Wasted: ___ mg vancomycin + 750 mg, Route: No Longer [facility] Sodium Chloride IVPB, [id number], Active 2014 Medical 0.9% IV 250 mL Start date: [place] 05/31/15 8:00:00, Duration: 30 day, Stop date: 06/29/15 20:00:00Notes: TIME CRITICAL MEDICATION (Same As: Vancocin) Infusion rate 2001 mg: infuse over 2.5 hours MEDICATION WASTE Product Size: 1000 mg Product Wasted: ___ mg Vancomycin 1 gm, Route: Inactive [facility] IVPB, Drug 2014 Medical form: INJ, Center [id number], Dosing Weight 65.455, kg, Start date: 05/30/15 19:00:00, Duration: 30 day, Stop date: 06/29/15 7:00:00Notes: TIME CRITICAL MEDICATION (Same As: Vancocin) Infusion rate 2001 mg: infuse over 2.5 hours MEDICATION WASTE Product Size: 1000 mg Product Wasted: ___ mg Amlodipine 5 mg, 1 tab, No Longer [facility] Route: PO, Active 2014 Medical Drug form: Center TAB, Bedtime, Dosing Weight 65.455, kg, Priority: NOW, Start date: 05/30/15 18:27:00, Duration: 30 day, Stop date: 06/28/15 21:00:00Notes: (Same as: Norvasc) Ancef 1 gm, Route: No Longer [facility] IVPB, Drug Active 2014 Medical form: PDR/INJ, Center Q8H, Dosing Weight 65.455, kg, Start date: 05/29/15 21:00:00, Duration: 30 day, Stop date: 06/28/15 13:00:00Notes: (Same As: Ancef Kefzol) MEDICATION WASTE Product Size: 1000 mg Product Wasted: ___ mg Ondansetron 4 mg, 2 mL, Inactive [facility] Route: IVP, 2014 Medical Drug form: Center INJ, ONCE, Dosing Weight 65.455, kg, PRN Nausea & Vomiting, Start date: 05/29/15 20:37:00Notes: (Same as: Zofran) MEDICATION WASTE Product Size: 4 mg Product Wasted: ___ mg Naloxone 0.04 mg, 0.1 Inactive [facility] mL, Route: 2015 Medical IVP, Drug Center form: INJ, Q2MIN, Dosing Weight 65.455, kg, PRN Narcotic Reversal, Start date: 05/29/15 20:37:00, Duration: 8 doses or times, Stop date: 05/30/15 0:00:00Notes: Same as Narcan Morphine 2 mg, 1 mL, Inactive [facility] Route: IVP2014 Medical Drug form: [place] INJ, Q5Min, Dosing Weight 65.455, kg, PRN Pain Score 4-6, Start date: 05/29/15 20:37:00, Duration: 5 doses or times, Stop date: 05/30/15 0:00:00Notes: (Same as:MORPhine Sulfate) Flumazenil 0.2 mg, 2 mL, Inactive [facility] Route: IVP2014 Medical Drug form: [place] INJ, PRN, Dosing Weight 65.455, kg, PRN Benzodiazepine Reversal, Initial dose, Start date: 05/29/15 20:37:00, Duration: 30 day, Stop date: 06/28/15 20:36:00Notes: (Same as: Romazicon) Hydralazine 10 mg, 0.5 mL, Inactive [facility] Route: IVP2014 Medical Drug form: [place] INJ, Q20Min, Dosing Weight 65.455, kg, PRN Elevated BP, Start date: 05/29/15 20:37:00, Duration: 2 doses or times, Stop date: 05/30/15 0:00:00Notes: (Same as: Apresoline) Push over 5 minutes Labetalol 10 mg, 2 mL, Inactive [facility] Route: IVP2014 Medical Drug form: [place] INJ, Q5Min, Dosing Weight 65.455, kg, PRN Elevated BP, Start date: 05/29/15 20:37:00, Duration: 5 doses or times, Stop date: 05/30/15 0:00:00 Hydrocortisone 50 mg, 1 mL, No Longer [facility] Route: IVPB, Active 2014 Medical Drug form: [place] PDR/INJ, Q6H, Dosing Weight 65.455, kg, Start date: 05/29/15 18:00:00, Duration: 1 day, Stop date: 05/30/15 18:00:00Notes: (Same as: Solu-CORTEF) pneumococcal 0.5 mL, Route: Inactive [facility] capsular IM, Drug Form: 2014 Medical polysaccharide INJ, Daily, Center type 1 vaccine / Start date: pneumococcal 05/29/15 capsular 9:00:00, polysaccharide Duration: 1 type 10A vaccine / doses or pneumococcal times, Stop capsular date: 05/29/15 polysaccharide 9:00:00Notes: type 11A vaccine / (Same as: pneumococcal Pneumovax 23) capsular Refrigerate polysaccharide type 12F vaccine / pneumococcal capsular polysacchar Prednisone 10 mg, 1 tab, No Longer [facility] Route: PO, Active 2014 Medical Drug form: Center TAB, Daily, Dosing Weight 65.455, kg, Start date: 05/29/15 9:00:00, Duration: 30 day, Stop date: 06/27/15 9:00:00 Vitamin K1 2.5 mg, 0.25 Inactive [place] mL, Route: 2014 Medical SUB-Q, Drug Center form: INJ, ONCE, Dosing Weight 65.455, kg, Start date: 05/29/15 8:55:00, Duration: 1 doses or times, Stop date: 05/29/15 8:55:00Notes: (Same as: Aqua-[place]phy[place], Vitamin K) MEDICATION WASTE Product Size: 10 mg Product Wasted: ___ mg NS 1,000 mL 1,000 mL, Inactive [place] Rate: [address] [place] [address] ml/hr, Infuse [place] over: 10 hr, Route: IV, Dosing Weight 65.455 kg, Total Volume: 1,000, Start date: 05/29/15 0:15:00, Duration: 30 day, Stop date: 06/28/15 0:14:00 metoprolol 50 mg, 1 tab, No Longer [facility] tartrate Route: PO, Active 2014 Medical Drug form: [place] TAB, Q12H, Dosing Weight 65.455, kg, Start date: 05/28/15 21:00:00, Duration: 30 day, Stop date: 06/27/15 9:00:00Notes: (Same as: Lopressor) Enoxaparin 40 mg, 0.4 mL, No Longer [facility] Route: SUB-Q, Active 2014 Medical Drug form: [place] INJ, [id number], Dosing Weight 65.455, kg, Start date: 05/28/15 17:00:00, Duration: 30 day, Stop date: 06/26/15 17:00:00Notes: (Same as: Lovenox) Docusate 100 mg, 1 cap, No Longer [place] Route: PO, Active 2014 Medical Drug form: Center CAP, BID, Dosing Weight 65.455, kg, Start date: 05/28/15 17:00:00, Duration: 30 day, Stop date: 06/27/15 9:00:00 Acetaminophen 650 mg, 2 tab, No Longer [place] Route: PO, Active 2014 Medical Drug form: Center TAB, Q4H, Dosing Weight 65.455, kg, PRN Pain 1-3/Temp > 100.4 F, Start date: 05/28/15 16:12:00, Duration: 30 day, Stop date: 06/27/15 16:11:00Notes: Do not exceed 4 gm/day. (Same as: Tylenol) Senna Smooth 8.6 mg, 1 tab, No Longer [place] Route: PO, Active 2014 Medical Drug form: Center TAB, Q12H, Dosing Weight 65.455, kg, PRN Constipation, Start date: 05/28/15 16:12:00, Duration: 30 day, Stop date: 06/27/15 16:11:00Notes: (Same as: Senokot) Melatonin 3 mg, 1 tab, No Longer [place] Route: PO, Active 2014 Medical Drug form: Center TAB, Bedtime, Dosing Weight 65.455, kg, PRN Insomnia, Start date: 05/28/15 16:12:00, Duration: 30 day, Stop date: 06/27/15 16:11:00Notes: (Same as: Melatonin) Tramadol 50 mg, 1 tab, No Longer [place] Route: PO, Active 2014 Medical Drug form: Center TAB, Q6H, Dosing Weight 65.455, kg, PRN Pain Score 1-3, Start date: 05/28/15 16:12:00, Duration: 30 day, Stop date: 06/27/15 16:11:00 Acetaminophen 325 1 tab, Route: No Longer [place] MG / Hydrocodone PO, Drug Form: Active 2014 Medical Bitartrate 10 MG TAB, Dosing Center Oral Tablet Weight 65.455, kg, Q4H, PRN Pain Score 7-10, Start date: 05/28/15 16:12:00, Duration: 30 day, Stop date: 06/27/15 16:11:00 Ondansetron 4 mg, 2 mL, No Longer [place] Route: IVP, Active 2014 Medical Drug form: Center INJ, Q8H, Dosing Weight 65.455, kg, PRN Nausea & Vomiting, Start date: 05/28/15 16:12:00, Duration: 30 day, Stop date: 06/27/15 16:11:00Notes: (Same as: Tori) MEDICATION WASTE Product Size: 4 mg Product Wasted: ___ mg Acetaminophen 325 1 tab, Route: Inactive [place] MG / Hydrocodone PO, Drug Form: 2014 Medical Bitartrate 5 MG TAB, Dosing Center Oral Tablet Weight 65.455, kg, ONCE, STAT, Start date: 05/28/15 12:34:00, Stop date: 05/28/15 12:34:00 Allergies, Adverse Reactions, Alerts Substance Category Reaction Severity Reaction Status Date Comments Source type Reported No Known Assertion Drug Medication allergy [place] Allergies Immunizations Immunization Date Site Status Last Comments Source Given Updated pneumococcal Right completed Conneh [facility] 23-valent 5 Deltoid Medical vaccine [place],[facility] pneumococcal Right thigh completed Achuo [facility] 23-valent 3 [facility] vaccine [place],[facility], [facility] [place] Results Order Name Results Value Reference Date Interpretation Comments Source Range CHEM PANEL Magnesium 2.1 1.8 - 2.4 12/25 Lvl [place] ELECTROLYTE CO2 29 24 - 32 12/25 S [place] ELECTROLYTE Chloride Lvl 100 95 - 109 12/25 S [place] ELECTROLYTE Creatinine 1.29 0.50 - 12/25 S Lvl 1.40 /2018 [place] ELECTROLYTE Sodium Lvl 138 135 - 145 12/25 S [place] ELECTROLYTE Potassium 3.4 3.5 - 5.1 12/25 S Lvl [place] ELECTROLYTE Glucose Lvl 91 70 - 99 12/25 S [place] ELECTROLYTE BUN 29 7 - 22 12/25 S [place] ELECTROLYTE Calcium Lvl 8.3 8.5 - 10.5 12/25 S [place] ELECTROLYTE eGFR 41 12/25 [facility] Comment: The [place] eGFR is calculated using the CKD-EPI formula. In most young, healthy individuals the eGFR will be >90 mL/min/1.73m2 . The eGFR declines with age. An eGFR of 60-89 may be normal in some populations, particularly the elderly, for whom the CKD-EPI formula has not been extensively validated. Use of the eGFR is not recommended in the following populations:< br/>
[place] viduals with unstable creatinine concentration s, including patients and those with serious co-morbid conditions.<b r/>
Patie nts with extremes in muscle mass or diet.

The data above are obtained from the National Kidney Disease Education Program (NKDEP) which additionally recommends that when the eGFR is used in patients with extremes of body mass index for purposes of drug dosing, the eGFR should be multiplied by the estimated BMI. ELECTROLYTE AGAP 12.4 10.0 - 06 MH S 20.0 /2018 [place] HEMATOLOGY PT 19.2 12.0 - 12/25 MH 14.7 [place] HEMATOLOGY INR 1.65 0.85 - 12/25 MH 1.17 /2018 [place] HEMATOLOGY Hct 30.3 36.0 - 12/25 MH 48.0 /2018 [place] HEMATOLOGY WBC 5.6 3.7 - 10.4 12/25 [place] HEMATOLOGY Hgb 10.2 12.0 - 12/25 MH 16.0 /2018 [place] HEMATOLOGY RBC 3.39 4.20 - 06/ MH 5.40 /2019 [place] HEMATOLOGY Platelet 146 133 - 450 06/ MH /2018 [place] HEMATOLOGY MCH 30.1 27.0 - 06/ MH 31.0 /2018 [place] HEMATOLOGY MPV 9.8 7.4 - 10.4 12/25 MH [place] HEMATOLOGY MCV 89.5 80.0 - 12/25 MH 98.0 /2019 [place] HEMATOLOGY RDW 15.1 11.5 - 06/ MH 14.5 /2018 [place] HEMATOLOGY MCHC 33.6 32.0 - 06/ MH 36.0 [place] HEMATOLOGY Monocytes # 0.5 0.0 - 0.8 12/25 [place] HEMATOLOGY Eosinophils 0.3 0.0 - 0.5 12/25 MH # /2018 [place] HEMATOLOGY Eosinophils 4.8 0.0 - 4.0 12/25 [place] HEMATOLOGY Monocytes 9.6 2.0 - 12.0 12/25 [place] HEMATOLOGY Lymphocytes 29.9 20.0 - 12/25 MH 40.0 [place] HEMATOLOGY Segs 55.2 45.0 - 12/25 MH 75.0 [place] HEMATOLOGY Neutrophils 3.1 1.5 - 8.1 12/25 MH # /2018 [place] HEMATOLOGY Lymphocytes 1.7 1.0 - 5.5 12/25 [place] HEMATOLOGY Basophils 0.5 0.0 - 1.0 12/25 [place] CHEM PANEL eGFR 51 12/24 Result Comment: The [place] eGFR is calculated using the CKD-EPI formula. In most young, healthy individuals the eGFR will be >90 mL/min/1.73m2 . The eGFR declines with age. An eGFR of 60-89 may be normal in some populations, particularly the elderly, for whom the CKD-EPI formula has not been extensively validated. Use of the eGFR is not recommended in the following populations:< br/>
[place] viduals with unstable creatinine concentration s, including patients and those with serious co-morbid conditions.<b r/>
Patie nts with extremes in muscle mass or diet.

The data above are obtained from the National Kidney Disease Education Program (NKDEP) which additionally recommends that when the eGFR is used in patients with extremes of body mass index for purposes of drug dosing, the eGFR should be multiplied by the estimated BMI. CHEM PANEL Calcium Lvl 8.4 8.5 - 10.5 12/24 [place] CHEM PANEL CO2 30 24 - 32 12/24 [place] CHEM PANEL Sodium Lvl 139 135 - 145 12/24 [place] CHEM PANEL Potassium 3.5 3.5 - 5.1 12/24 MH Lvl [place] CHEM PANEL Chloride Lvl 101 95 - 109 12/24 [place] CHEM PANEL Glucose Lvl 87 70 - 99 12/24 [place] CHEM PANEL BUN 27 7 - 22 06/02 MH /2019 [place] CHEM PANEL Creatinine 1.09 0.50 - 06/02 MH Lvl 1.40 /2018 [place] CHEM PANEL AGAP 11.5 10.0 - 06/02 MH 20.0 /2018 [place] CHEM PANEL Magnesium 2.0 1.8 - 2.4 06/02 MH Lvl /2018 [place] HEMATOLOGY MCHC 33.5 32.0 - 06/02 MH 36.0 /2019 [place] HEMATOLOGY Hct 32.0 36.0 - 06/02 MH 48.0 /2019 [place] HEMATOLOGY MCH 30.1 27.0 - 06/02 MH 31.0 /2019 [place] HEMATOLOGY MCV 89.8 80.0 - 06/02 MH 98.0 /2019 [place] HEMATOLOGY MPV 10.2 7.4 - 10.4 06/02 MH /2018 [place] HEMATOLOGY Platelet 154 133 - 450 06/ MH /2018 [place] HEMATOLOGY RDW 14.9 11.5 - 06/02 MH 14.5 /2018 [place] HEMATOLOGY RBC 3.56 4.20 - 06/02 MH 5.40 [place] HEMATOLOGY Hgb 10.7 12.0 - 06/02 MH 16.0 /2019 [place] HEMATOLOGY WBC 5.7 3.7 - 10.4 06/02 MH /2019 [place] HEMATOLOGY INR 1.93 0.85 - 06/02 MH 1.17 [place] HEMATOLOGY PT 21.6 12.0 - 06/02 MH 14.7 /2018 [place] HEMATOLOGY Lymphocytes 31.8 20.0 - 06/02 MH 40.0 /2018 [place] HEMATOLOGY Monocytes 10.0 2.0 - 12.0 06/02 MH /2018 [place] HEMATOLOGY Eosinophils 3.3 0.0 - 4.0 06/02 MH /2019 [place] HEMATOLOGY Basophils 0.6 0.0 - 1.0 06/02 MH /2019 [place] HEMATOLOGY Segs 54.3 45.0 - 06/02 MH 75.0 /2019 [place] HEMATOLOGY Lymphocytes 1.8 1.0 - 5.5 06/02 MH # /2018 [place] HEMATOLOGY Monocytes # 0.6 0.0 - 0.8 06/02 MH /2018 [place] HEMATOLOGY Eosinophils 0.2 0.0 - 0.5 06/02 MH # /2018 [place] HEMATOLOGY Neutrophils 3.1 1.5 - 8.1 06/02 MH # /2018 [place] CHEM PANEL Magnesium 1.9 1.8 - 2.4 12/23 Lvl /2018 [place] CHEM PANEL Glucose Lvl 90 70 - 99 12/23 [place] CHEM PANEL eGFR 48 12/23 Result Comment: The [place] eGFR is calculated using the CKD-EPI formula. In most young, healthy individuals the eGFR will be >90 mL/min/1.73m2 . The eGFR declines with age. An eGFR of 60-89 may be normal in some populations, particularly the elderly, for whom the CKD-EPI formula has not been extensively validated. Use of the eGFR is not recommended in the following populations:< br/>
[place] viduals with unstable creatinine concentration s, including patients and those with serious co-morbid conditions.<b r/>
Patie nts with extremes in muscle mass or diet.

The data above are obtained from the National Kidney Disease Education Program (NKDEP) which additionally recommends that when the eGFR is used in patients with extremes of body mass index for purposes of drug dosing, the eGFR should be multiplied by the estimated BMI. CHEM PANEL Potassium 3.5 3.5 - 5.1 12/23 MH Lvl [place] CHEM PANEL BUN 29 7 - 22 12/23 [place] CHEM PANEL Creatinine 1.15 0.50 - 12/23 MH Lvl 1.40 /2018 [place] CHEM PANEL Sodium Lvl 141 135 - 145 12/23 [place] CHEM PANEL Chloride Lvl 103 95 - 109 12/23 [place] CHEM PANEL CO2 30 24 - 32 12/23 [place] CHEM PANEL Calcium Lvl 8.0 8.5 - 10.5 12/23 [place] CHEM PANEL AGAP 11.5 10.0 - 12/23 MH 20.0 [place] HEMATOLOGY Lymphocytes 1.9 1.0 - 5.5 12/23 MH # [place] HEMATOLOGY Eosinophils 0.2 0.0 - 0.5 12/23 # [place] HEMATOLOGY Monocytes # 0.7 0.0 - 0.8 12/23 [place] HEMATOLOGY Eosinophils 4.0 0.0 - 4.0 12/23 [place] HEMATOLOGY Neutrophils 3.0 1.5 - 8.1 06/01 MH # /2019 [place] HEMATOLOGY Lymphocytes 32.1 20.0 - 06/ MH 40.0 /2019 [place] HEMATOLOGY Basophils 0.4 0.0 - 1.0 06 MH /2018 [place] HEMATOLOGY Monocytes 11.8 2.0 - 12.0 06 MH /2018 [place] HEMATOLOGY Segs 51.7 45.0 - 06 MH 75.0 /2018 [place] HEMATOLOGY PT 23.8 12.0 - 06 MH 14.7 /2018 [place] HEMATOLOGY INR 2.18 0.85 - 06 MH 1.17 /2018 [place] HEMATOLOGY MPV 9.8 7.4 - 10.4 06 MH /2018 [place] HEMATOLOGY Hct 32.2 36.0 - 06 MH 48.0 [place] HEMATOLOGY RBC 3.55 4.20 - 12/23 MH 5.40 [place] HEMATOLOGY Hgb 10.6 12.0 - 12/23 MH 16.0 [place] HEMATOLOGY WBC 5.8 3.7 - 10.4 12/23 /2018 [place] HEMATOLOGY RDW 15.0 11.5 - 12/23 MH 14.5 [place] HEMATOLOGY MCV 90.7 80.0 - 06 MH 98.0 /2019 [place] HEMATOLOGY MCH 29.7 27.0 - 12/23 MH 31.0 [place] HEMATOLOGY Platelet 156 133 - 450 06 /2018 [place] HEMATOLOGY MCHC 32.8 32.0 - 06 MH 36.0 /2018 [place] CARDIAC Troponin-I 0.02 0.00 - 12/22 MH ENZYMES 0.40 [place] CHEM PANEL Alk Phos 60 39 - 136 12/22 [place] CHEM PANEL AST 19 0 - 37 12/22 [place] CHEM PANEL ALT 13 0 - 65 12/22 [place] CHEM PANEL A/G Ratio 0.8 0.7 - 1.6 12/22 [place] CHEM PANEL Bili Total 0.6 0.2 - 1.3 12/22 [place] CHEM PANEL B/C Ratio 24 6 - 25 12/22 [place] CHEM PANEL Globulin 3.5 2.7 - 4.2 12/22 [place] CHEM PANEL Total 6.3 6.4 - 8.4 12/22 [place] CHEM PANEL Albumin Lvl 2.8 3.5 - 5.0 12/22 [place] HEMATOLOGY PTT 47.8 22.9 - 12/22 MH 35.8 /2018 [place] CARDIAC Troponin-I <0.02 0.00 - 12/22 ENZYMES 0.40 [place] HEMATOLOGY PTT 45.1 22.9 - 12/22 MH 35.8 /2019 [place] CARDIAC Troponin-I <0.02 0.00 - 12/22 ENZYMES 0.40 [place] CARDIAC BNP 1583 <=100 12/22 ENZYMES pg/mL /2018 [place] CARDIAC Total CK 50 12 - 191 12/22 ENZYMES /2018 [place] CHEM PANEL Bili Total 0.6 0.2 - 1.3 12/22 [place] CHEM PANEL Alk Phos 68 39 - 136 12/22 [place] CHEM PANEL AST 22 0 - 37 12/22 [place] CHEM PANEL ALT 17 0 - 65 12/22 [place] CHEM PANEL Albumin Lvl 3.1 3.5 - 5.0 12/22 [place] CHEM PANEL Total 7.2 6.4 - 8.4 12/22 Protein /2018 [place] CHEM PANEL A/G Ratio 0.8 0.7 - 1.6 12/22 [place] CHEM PANEL Globulin 4.1 2.7 - 4.2 12/22 [place] CHEM PANEL B/C Ratio 26 6 - 25 12/22 [place] HEMATOLOGY PT 19.2 12.0 - 10/22 MH 14.7 2019 [facility] HEMATOLOGY INR 1.65 0.85 - 10/22 MH 1.17 [place] CHEM PANEL B/C Ratio 25 6 - 25 10/22 [place] CHEM PANEL Globulin 3.3 2.7 - 4.2 10/22 [facility] CHEM PANEL A/G Ratio 0.8 0.7 - 1.6 10/22 [facility] CHEM PANEL AGAP 12.4 10.0 - 10/22 MH 20.0 [place] CHEM PANEL eGFR 55 10/22 Result Comment: The [facility] eGFR is calculated using the CKD-EPI formula. In most young, healthy individuals the eGFR will be >90 mL/min/1.73m2 . The eGFR declines with age. An eGFR of 60-89 may be normal in some populations, particularly the elderly, for whom the CKD-EPI formula has not been extensively validated. Use of the eGFR is not recommended in the following populations:< br/>
[place] viduals with unstable creatinine concentration s, including patients and those with serious co-morbid conditions.<b r/>
Patie nts with extremes in muscle mass or diet.

The data above are obtained from the National Kidney Disease Education Program (NKDEP) which additionally recommends that when the eGFR is used in patients with extremes of body mass index for purposes of drug dosing, the eGFR should be multiplied by the estimated BMI. CHEM PANEL Sodium Lvl 141 135 - 145 10/22 [place] CHEM PANEL Chloride Lvl 105 95 - 109 10/22 [place] CHEM PANEL Potassium 3.4 3.5 - 5.1 10/22 Lvl /2018 [place] CHEM PANEL BUN 25 7 - 22 10/22 [place] CHEM PANEL Creatinine 1.02 0.50 - 10/22 Lvl 1.40 [place] CHEM PANEL Total 6.0 6.4 - 8.4 10/22 [place] CHEM PANEL Calcium Lvl 8.2 8.5 - 10.5 10/22 [place] CHEM PANEL CO2 27 24 - 32 10/22 [place] CHEM PANEL AST 21 0 - 37 10/22 [place] CHEM PANEL Alk Phos 51 39 - 136 10/22 [place] CHEM PANEL ALT 15 0 - 65 10/22 [place] CHEM PANEL Albumin Lvl 2.7 3.5 - 5.0 10/22 [place] CHEM PANEL Bili Total 0.7 0.2 - 1.3 10/22 [place] CHEM PANEL Glucose Lvl 81 70 - 99 10/22 [facility] HEMATOLOGY MPV 9.7 7.4 - 10.4 10/22 [facility] HEMATOLOGY Platelet 148 133 - 450 10/22 [facility] HEMATOLOGY MCV 93.6 80.0 - 10/22 98.0 [facility] HEMATOLOGY MCH 30.7 27.0 - 10/22 MH 31.0 [facility] HEMATOLOGY MCHC 32.8 32.0 - 10/22 MH 36.0 [facility] HEMATOLOGY RDW 13.7 11.5 - 10/22 MH 14.5 /2018 [facility] HEMATOLOGY RBC 3.21 4.20 - 10/22 MH 5.40 [facility] HEMATOLOGY Hct 30.0 36.0 - 10/22 MH 48.0 [facility] HEMATOLOGY WBC 6.8 3.7 - 10.4 10/22 [facility] HEMATOLOGY Hgb 9.8 12.0 - 10/22 MH 16.0 [facility] HEMATOLOGY Basophils 0.6 0.0 - 1.0 10/22 [facility] HEMATOLOGY Neutrophils 3.4 1.5 - 8.1 10/22 MH # /2019 [facility] HEMATOLOGY Monocytes # 0.8 0.0 - 0.8 10/22 [facility] HEMATOLOGY Eosinophils 0.2 0.0 - 0.5 10/22 [facility] HEMATOLOGY Lymphocytes 2.2 1.0 - 5.5 10/22 # [facility] HEMATOLOGY Eosinophils 3.6 0.0 - 4.0 10/22 [facility] HEMATOLOGY Monocytes 12.1 2.0 - 12.0 10/22 [facility] HEMATOLOGY Lymphocytes 33.2 20.0 - 10/22 MH 40.0 [facility] HEMATOLOGY Segs 50.5 45.0 - 10/22 MH 75.0 [facility] CARDIAC Troponin-I 0.03 0.00 - 10/21 ENZYMES 0.40 [facility] CHEM PANEL eGFR 61 10/21 Result Comment: The [facility] eGFR is calculated using the CKD-EPI formula. In most young, healthy individuals the eGFR will be >90 mL/min/1.73m2 . The eGFR declines with age. An eGFR of 60-89 may be normal in some populations, particularly the elderly, for whom the CKD-EPI formula has not been extensively validated. Use of the eGFR is not recommended in the following populations:< br/>
[place] viduals with unstable creatinine concentration s, including patients and those with serious co-morbid conditions.<b r/>
Patie nts with extremes in muscle mass or diet.

The data above are obtained from the National Kidney Disease Education Program (NKDEP) which additionally recommends that when the eGFR is used in patients with extremes of body mass index for purposes of drug dosing, the eGFR should be multiplied by the estimated BMI. CHEM PANEL Sodium Lvl 144 135 - 145 10/21 [place] CHEM PANEL Chloride Lvl 108 95 - 109 / [place] CHEM PANEL Potassium 3.4 3.5 - 5.1 03/ MH Lvl /2018 [place] CHEM PANEL Calcium Lvl 8.4 8.5 - 10.5 10/21 [place] CHEM PANEL CO2 28 24 - 32 03/ [place] CHEM PANEL Alk Phos 49 39 - 136 03 [place] CHEM PANEL Albumin Lvl 2.8 3.5 - 5.0 10/21 [place] CHEM PANEL Total 6.2 6.4 - 8.4 10/21 MH [place] CHEM PANEL ALT 16 0 - 65 10/21 [place] CHEM PANEL AST 23 0 - 37 10/21 [place] CHEM PANEL Bili Total 0.6 0.2 - 1.3 10/21 [place] CHEM PANEL Glucose Lvl 79 70 - 99 10/21 [place] CHEM PANEL Creatinine 0.95 0.50 - 03 MH Lvl 1.40 /2018 [place] CHEM PANEL BUN 25 7 - 22 10/21 [place] CHEM PANEL AGAP 11.4 10.0 - 10/21 MH 20.0 /2018 [place] CHEM PANEL B/C Ratio 26 6 - 25 10/21 [place] CHEM PANEL Globulin 3.4 2.7 - 4.2 10/21 [place] CHEM PANEL A/G Ratio 0.8 0.7 - 1.6 10/21 [place] HEMATOLOGY Lymphocytes 2.2 1.0 - 5.5 03/ MH # /2019 [place] HEMATOLOGY Monocytes # 0.5 0.0 - 0.8 10/21 [place] HEMATOLOGY Eosinophils 0.1 0.0 - 0.5 10/21 MH # /2018 [place] HEMATOLOGY Neutrophils 3.0 1.5 - 8.1 10/21 MH # /2019 [place] HEMATOLOGY Basophils 0.7 0.0 - 1.0 10/21 [place] HEMATOLOGY Eosinophils 2.5 0.0 - 4.0 10/21 [place] HEMATOLOGY Segs 50.9 45.0 - 10/21 MH 75.0 /2019 [place] HEMATOLOGY Monocytes 8.4 2.0 - 12.0 03/ MH [place] HEMATOLOGY Lymphocytes 37.5 20.0 - 10/21 MH 40.0 /2019 [place] HEMATOLOGY WBC 5.9 3.7 - 10.4 10/21 /2018 [facility] HEMATOLOGY Hct 30.1 36.0 - 10/21 MH 48.0 /2019 [facility] HEMATOLOGY RBC 3.21 4.20 - 10/21 MH 5.40 /2018 [facility] HEMATOLOGY Hgb 10.0 12.0 - 10/21 MH 16.0 /2018 [facility] HEMATOLOGY MCHC 33.1 32.0 - 10/21 MH 36.0 /2018 [facility] HEMATOLOGY MCV 93.7 80.0 - 10/21 MH 98.0 /2018 [facility] [facility] HEMATOLOGY RDW 13.6 11.5 - 10/21 MH 14.5 /2018 [facility] HEMATOLOGY MCH 31.1 27.0 - 10/21 MH 31.0 /2018 [facility] HEMATOLOGY Platelet 145 133 - 450 10/21 [facility] HEMATOLOGY MPV 9.8 7.4 - 10.4 10/21 [facility] CARDIAC Troponin-I 0.02 0.00 - 10/21 ENZYMES 0.40 [facility] CARDIAC BNP 906 <=100 10/21 EN[facility]YM[facility] pg/mL /2018 [facility] URINE AND UA WBC 1 0 - 5 10/21 STOOL [facility] URINE AND UA RBC <1 0 - 2 10/21 STOOL [facility] URINE AND UA Ketones Negative Negative 10/21 STOOL *NA* /2018 [facility] (10/20/18 8:29 PM) URINE AND UA Protein Negative Negative 10/21 STOOL (10/20/18 8:29 PM) [facility] URINE AND UA Glucose Negative Negative 10/21 STOOL *NA* /2018 [facility] (10/20/18 8:29 PM) URINE AND UA Bili Negative Negative 10/21 STOOL *NA* [facility] (10/20/18 8:29 PM) URINE AND UA Leuk Est Trace Negative 10/21 STOOL *ABN* /2018 [facility] (10/20/18 8:29 PM) URINE AND UA Sq Epi None Seen Few 10/21 STOOL (10/20/18 8:29 PM) [facility] URINE AND UA Turbidity Clear Clear 10/21 STOOL (10/20/18 8:29 PM) [facility] URINE AND UA Spec Grav 1.008 <=1.030 10/21 [facility]OL [place] URINE AND UA pH 6.0 5.0 - 8.0 10/21 STOOL [facility] URINE AND UA Color Ltyellow 10/21 STOOL [facility] URINE AND UA Blood Negative Negative 10/21 STOOL (10/20/18 8:29 PM) [facility] URINE AND UA <=1.0 0.1 - 1.0 10/21 STOOL Urobilinogen mg/dL /2018 [facility] URINE AND UA Nitrite Negative Negative 10/21 STOOL (10/20/18 8:29 PM) [facility] CARDIAC Troponin-I <0.02 0.00 - 10/20 ENZYMES 0.40 [facility] CARDIAC Total CK 60 12 - 191 10/20 ENZYMES /2018 [facility] ELECTROLYTE AGAP 14.1 10.0 - 10/20 S 20.0 [facility] ELECTROLYTE B/C Ratio 27 6 - 25 10/20 S [facility] ELECTROLYTE Globulin 3.9 2.7 - 4.2 10/20 S [facility] ELECTROLYTE A/G Ratio 0.8 0.7 - 1.6 10/20 S [facility] ELECTROLYTE eGFR 55 10/20 S Comment: The [facility] eGFR is calculated using the CKD-EPI formula. In most young, healthy individuals the eGFR will be >90 mL/min/1.73m2 . The eGFR declines with age. An eGFR of 60-89 may be normal in some populations, particularly the elderly, for whom the CKD-EPI formula has not been extensively validated. Use of the eGFR is not recommended in the following populations:< br/>
Mary Kate viduals with unstable creatinine concentration s, including patients and those with serious co-morbid conditions.<b r/>
Patie nts with extremes in muscle mass or diet.

The data above are obtained from the National Kidney Disease Education Program (NKDEP) which additionally recommends that when the eGFR is used in patients with extremes of body mass index for purposes of drug dosing, the eGFR should be multiplied by the estimated BMI. ELECTROLYTE ALT 18 0 - 65 10/20 S [facility] ELECTROLYTE AST 27 0 - 37 10/20 S [facility] ELECTROLYTE Alk Phos 58 39 - 136 10/20 S [facility] ELECTROLYTE Bili Total 0.6 0.2 - 1.3 10/20 S [facility] ELECTROLYTE Potassium 4.1 3.5 - 5.1 10/20 S [facility] [place] ELECTROLYTE Sodium Lvl 141 135 - 145 10/20 S [place] ELECTROLYTE CO2 25 24 - 32 10/20 S [place] ELECTROLYTE Glucose Lvl 87 70 - 99 10/20 S [place] ELECTROLYTE Creatinine 1.02 0.50 - 10/20 MH S Lvl 1.40 [place] ELECTROLYTE BUN 28 7 - 22 10/20 S [place] ELECTROLYTE Calcium Lvl 8.4 8.5 - 10.5 10/20 S [place] ELECTROLYTE Chloride Lvl 106 95 - 109 10/20 [facility] [place] ELECTROLYTE Albumin Lvl 3.1 3.5 - 5.0 10/20 [facility] [place] ELECTROLYTE Total 7.0 6.4 - 8.4 10/20 S [facility] HEMATOLOGY Neutrophils 4.0 1.5 - 8.1 10/20 MH # /2018 [facility] HEMATOLOGY Monocytes # 0.5 0.0 - 0.8 10/20 [facility] HEMATOLOGY Lymphocytes 1.2 1.0 - 5.5 10/20 MH # /2018 [facility] HEMATOLOGY Monocytes 7.9 2.0 - 12.0 10/20 [facility] HEMATOLOGY Eosinophils 0.7 0.0 - 4.0 10/20 [facility] HEMATOLOGY Basophils 0.2 0.0 - 1.0 10/20 [facility] HEMATOLOGY Segs 70.2 45.0 - 10/20 MH 75.0 /2018 [facility] HEMATOLOGY Lymphocytes 21.0 20.0 - 10/20 MH 40.0 [facility] HEMATOLOGY Hct 31.0 36.0 - 10/20 MH 48.0 [facility] HEMATOLOGY MCV 94.6 80.0 - 10/20 MH 98.0 /2018 [facility] HEMATOLOGY Hgb 10.0 12.0 - 10/20 MH 16.0 /2018 [facility] HEMATOLOGY RBC 3.27 4.20 - 10/20 MH 5.40 /2019 [facility] HEMATOLOGY WBC 5.8 3.7 - 10.4 10/20 [facility] HEMATOLOGY MPV 9.8 7.4 - 10.4 10/20 [facility] HEMATOLOGY Platelet 158 133 - 450 10/20 [facility] HEMATOLOGY MCH 30.4 27.0 - 10/20 MH 31.0 [facility] HEMATOLOGY MCHC 32.2 32.0 - 10/20 MH 36.0 [facility] HEMATOLOGY RDW 13.8 11.5 - 10/20 MH 14.5 /2018 [facility] HEMATOLOGY INR 1.23 0.85 - 06/02 [place] 1.17 /2014 [facility] HEMATOLOGY PTT 36.5 22.9 - 06/02 [place] 35.8 /2014 [facility] HEMATOLOGY PT 15.8 12.0 - 06/02 [facility] 14.7 [facility] TOXICOLOGY Vanco Tr TND 1930 06/02 [facility] TOXICOLOGY Vanco Tr 20.5 06/02 [facility] CHEM PANEL eGFR 93 05/31 [facility] Comment: The [facility] eGFR is Center calculated using the CKD-EPI formula. In most young, healthy individuals the eGFR will be >90 mL/min/1.73m2 . The eGFR declines with age. An eGFR of 60-89 may be normal in some populations, particularly the elderly, for whom the CKD-EPI formula has not been extensively validated. Use of the eGFR is not recommended in the following populations:< br/>
Mary Kate viduals with unstable creatinine concentration s, including patients and those with serious co-morbid conditions.<b r/>
Patie nts with extremes in muscle mass or diet.

The data above are obtained from the National Kidney Disease Education Program (NKDEP) which additionally recommends that when the eGFR is used in patients with extremes of body mass index for purposes of drug dosing, the eGFR should be multiplied by the estimated BMI. CHEM PANEL ALT 7 0 - 65 05/31 [facility] CHEM PANEL Albumin Lvl 2.0 3.5 - 5.0 05/31 [facility] CHEM PANEL AST 12 0 - 37 05/31 [facility] CHEM PANEL Bili Total 0.5 0.2 - 1.3 05/31 [facility] CHEM PANEL Alk Phos 58 39 - 136 05/31 [facility]2014 [facility] CHEM PANEL BUN 18 7 - 22 05/31 [facility] CHEM PANEL Sodium Lvl 144 135 - 145 05/31 [facility] CHEM PANEL Potassium 3.6 3.5 - 5.1 05/31 [facility] [place] [facility] CHEM PANEL Chloride Lvl 112 95 - 109 05/31 [facility] CHEM PANEL Creatinine 0.61 0.50 - 05/31 [facility] [place] Lvl 1.40 /2014 [facility] CHEM PANEL Calcium Lvl 7.6 8.5 - 10.5 05/31 [facility] CHEM PANEL Total 5.3 6.4 - 8.4 05/31 [facility] CHEM PANEL CO2 21 24 - 32 11 [facility] CHEM PANEL Glucose Lvl 93 70 - 99 05/31 [facility] CHEM PANEL AGAP 14.6 10.0 - 11 20.0 [facility] CHEM PANEL Globulin 3.3 2.0 - 4.0 11 [facility] CHEM PANEL B/C Ratio 30 6 - 25 05/31 [facility] CHEM PANEL A/G Ratio 0.6 0.7 - 1.6 05/31 [facility] HEMATOLOGY MPV 9.2 7.4 - 10.4 05/31 [facility] HEMATOLOGY Platelet 202 133 - 450 05/31 [facility] HEMATOLOGY WBC 9.0 3.7 - 10.4 05/31 [facility] HEMATOLOGY MCHC 32.6 32.0 - 11 36.0 /2014 [facility] HEMATOLOGY RDW 14.8 11.5 - 11 14.5 [facility] HEMATOLOGY Hct 30.0 36.0 - 05/31 48.0 /2014 [facility] HEMATOLOGY RBC 3.23 4.20 - 05/31 5.40 /2014 [facility] HEMATOLOGY Hgb 9.8 12.0 - 11 16.0 [facility] HEMATOLOGY MCV 92.8 80.0 - 05/31 98.0 /2014 [facility] HEMATOLOGY MCH 30.3 27.0 - 11 31.0 /2014 [facility] HEMATOLOGY Monocytes 8.3 2.0 - 12.0 05/31 [facility] HEMATOLOGY Lymphocytes 28.2 20.0 - 11 40.0 [facility] HEMATOLOGY Eosinophils 0.4 0.0 - 4.0 05/31 [facility] HEMATOLOGY Segs-Bands # 5.7 1.5 - 8.1 05/31 [facility] HEMATOLOGY Basophils 0.2 0.0 - 1.0 05/31 [facility] HEMATOLOGY Segs 62.9 45.0 - 11 [place] 75.0 /2014 [facility] HEMATOLOGY Monocytes # 0.7 0.0 - 0.8 05/31 /2014 [facility] HEMATOLOGY Lymphocytes 2.5 1.0 - 5.5 05/31 [place] # /2014 [facility] CARDIAC Troponin-T <0.010 0.000 - 05/30 [facility] ENZYMES 0.100 /2014 [facility] CARDIAC Total CK 55 12 - 191 05/30 [facility] ENZYMES /2014 [facility] CARDIAC Troponin-I 0.02 0.00 - 05/30 [place] ENZYMES 0.40 /2014 [facility] CARDIAC Troponin-T <0.010 0.000 - 05/30 [facility] ENZYMES 0.100 /2014 [facility] CARDIAC Troponin-I <0.02 0.00 - 05/30 [facility] ENZYMES 0.40 /2014 [facility] CARDIAC Total CK 49 12 - 191 05/30 [facility] ENZYMES /2014 [facility] BLOOD BANK Antibody Negative 05/29 [facility] RESULTS Scrn (05/29/15 1:38 AM) /2014 [facility] BLOOD BANK ABO/Rh A POS 05/29 [facility] RESULTS /2014 [facility] CHEM PANEL Glucose Lvl 69 70 - 99 05/29 [facility] CHEM PANEL Creatinine 0.56 0.50 - 05/29 [place] Lvl 1.40 [facility] CHEM PANEL BUN 16 7 - 22 05/29 [facility] CHEM PANEL Potassium 3.3 3.5 - 5.1 05/29 [facility] Lvl /2014 [facility] CHEM PANEL Sodium Lvl 147 135 - 145 05/29 [facility] CHEM PANEL Calcium Lvl 7.1 8.5 - 10.5 05/29 [facility] CHEM PANEL Chloride Lvl 115 95 - 109 05/29 [facility] CHEM PANEL AGAP 13.3 10.0 - 05/29 [place] 20.0 [facility] CHEM PANEL CO2 22 24 - 32 05/29 [facility] CHEM PANEL eGFR 96 05/29 [facility] Comment: The Medical eGFR is Center calculated using the CKD-EPI formula. In most young, healthy individuals the eGFR will be >90 mL/min/1.73m2 . The eGFR declines with age. An eGFR of 60-89 may be normal in some populations, particularly the elderly, for whom the CKD-EPI formula has not been extensively validated. Use of the eGFR is not recommended in the following populations:< br/>
Mary Kate viduals with unstable creatinine concentration s, including patients and those with serious co-morbid conditions.<b r/>
Patie nts with extremes in muscle mass or diet.

The data above are obtained from the National Kidney Disease Education Program (NKDEP) which additionally recommends that when the eGFR is used in patients with extremes of body mass index for purposes of drug dosing, the eGFR should be multiplied by the estimated BMI. HEMATOLOGY INR 1.52 0.85 - 05/29 [place] 1.17 [facility] HEMATOLOGY PT 18.6 12.0 - 05/29 [facility] 14.7 [facility] HEMATOLOGY PTT 42.2 22.9 - 05/29 [facility] 35.8 [facility] HEMATOLOGY Sed Rate 60 0 - 20 05/29 [facility] IMMUNOLOGY C-REACTIVE 20.1 <=2.9 mg/L 05/29 [facility] PROTEIN [facility] THYROID TSH 1.640 0.360 - 05/29 [facility] PANEL 3.740 [facility] HEMATOLOGY INR 1.31 0.85 - 05/28 [place] 1.17 [facility] HEMATOLOGY PT 16.6 12.0 - 05/28 [place] 14.7 [facility] HEMATOLOGY PTT 38.3 22.9 - 05/28 [facility] 35.8 [facility] ELECTROLYTE AGAP 14.0 10.0 - 05/28 [facility] S 20.0 [facility] ELECTROLYTE eGFR 73 05/28 Result [facility] Comment: The Medical eGFR is Center calculated using the CKD-EPI formula. In most young, healthy individuals the eGFR will be >90 mL/min/1.73m2 . The eGFR declines with age. An eGFR of 60-89 may be normal in some populations, particularly the elderly, for whom the CKD-EPI formula has not been extensively validated. Use of the eGFR is not recommended in the following populations:< br/>
Mary Kate viduals with unstable creatinine concentration s, including patients and those with serious co-morbid conditions.<b r/>
Patie nts with extremes in muscle mass or diet.

The data above are obtained from the National Kidney Disease Education Program (NKDEP) which additionally recommends that when the eGFR is used in patients with extremes of body mass index for purposes of drug dosing, the eGFR should be multiplied by the estimated BMI. ELECTROLYTE Glucose Lvl 81 70 - 99 05/28 [facility] S [facility] ELECTROLYTE Calcium Lvl 8.9 8.5 - 10.5 05/28 [facility] S [facility] ELECTROLYTE Potassium 5.0 3.5 - 5.1 05/28 Result [facility] Comment: [facility] moderate Center hemolysis ELECTROLYTE BUN 18 7 - 22 05/28 [facility] S [facility] ELECTROLYTE Sodium Lvl 139 135 - 145 05/28 [facility] S /2014 [facility] ELECTROLYTE Creatinine 0.83 0.50 - 05/28 [facility] S Lvl 1.40 [facility] ELECTROLYTE CO2 22 24 - 32 05/28 [facility] ELECTROLYTE Chloride Lvl 108 95 - 109 05/28 [facility] S [facility] HEMATOLOGY Sed Rate 80 0 - 20 05/28 [facility] IMMUNOLOGY C-REACTIVE 22.1 <=2.9 mg/L 05/28 Result [facility] Comment: [facility] Moderately Hemolyzed. HEMATOLOGY RDW 14.8 11.5 - 05/28 14.5 [facility] HEMATOLOGY Platelet 151 133 - 450 05/28 [facility] HEMATOLOGY MPV 9.6 7.4 - 10.4 05/28 [facility] HEMATOLOGY WBC 9.2 3.7 - 10.4 05/28 [facility] HEMATOLOGY RBC 3.91 4.20 - 05/28 [place] 5.40 [facility] HEMATOLOGY Hgb 11.7 12.0 - 05/28 [place] 16.0 [facility] HEMATOLOGY Hct 36.3 36.0 - 05/28 [place] 48.0 /2014 [facility] HEMATOLOGY MCV 93.0 80.0 - 05/28 [place] 98.0 [facility] HEMATOLOGY MCHC 32.2 32.0 - 05/28 [place] 36.0 [facility] HEMATOLOGY MCH 30.0 27.0 - 05/28 [place] 31.0 [facility] HEMATOLOGY Basophils # 0.1 0.0 - 0.2 05/28 [facility] HEMATOLOGY Lymphocytes 2.9 1.0 - 5.5 05/28 [facility] [place] # /2014 [facility] HEMATOLOGY Monocytes # 0.6 0.0 - 0.8 05/28 /2014 [facility] HEMATOLOGY Eosinophils 0.1 0.0 - 0.5 05/28 [facility] # /2014 [facility] HEMATOLOGY Segs 59.5 45.0 - 05/28 [facility] 75.0 /2014 [facility] HEMATOLOGY Eosinophils 1.1 0.0 - 4.0 05/28 [facility] HEMATOLOGY Segs-Bands # 5.5 1.5 - 8.1 05/28 [facility] HEMATOLOGY Basophils 1.3 0.0 - 1.0 05/28 [facility] HEMATOLOGY Monocytes 6.9 2.0 - 12.0 05/28 [facility] HEMATOLOGY Lymphocytes 31.2 20.0 - 05/28 [facility] 40.0 [facility] HEMATOLOGY RBC Morph Normal 05/28 [facility] (05/28/15 12:35 PM) [facility] HEMATOLOGY Plt Morph See Note 1 05/28 Result [facility] (05/28/15 12:35 PM) Comment: Due Medical to Center occassional clumps, the actual count may be slightly higher. Pathology Reports No Data Provided for This Section Diagnostic Reports Report Value Date Source Ext Lower Venous Patient Name: SUMMER HUANG 12/25/2018 [facility] Doppler Bilat US : 1945; Age: 73 years Female MR: [id number] Study: Ext Lower Venous Doppler Bilat US 12/25/2018 10:02 CDT CLINICAL INDICATION: - Possible DVT. Left calf pain COMPARISON: None TECHNIQUE: Sonographic evaluation of the bilateral lower extremity veins was performed using high resolution B-mode imaging, along with pulse and color Doppler imaging. FINDINGS: Right lower extremity: The common femoral vein, femoral vein, popliteal vein and visualized posterior tibial/calf veins are patent and compressible. The saphenofemoral junction and visualized greater saphenous vein are patent and compressible. Left lower extremity: The common femoral vein, femoral vein, popliteal vein and visualized posterior tibial/calf veins are patent and compressible. The saphenofemoral junction and visualized greater saphenous vein are patent and compressible. IMPRESSION: No evidence of deep venous thrombosis within the bilateral lower extremities. SL: [id number] Chest 1view DX Clinical Indication: - dyspnea; 12/21/2018 [facility] Comparison: October 20, 2018 FINDINGS: The portable AP single view radiograph provided for review. The exam demonstrates limited decreased lung volumes without change in the cardiomegaly perihilar vascular congestion and bilateral small effusions with adjacent opacities. No pneumothorax. The trachea is midline. There are no clinically significant osseous abnormalities noted. IMPRESSION: No new significant findings, see above discussion SL: [id number] Chest 2 views DX PROCEDURE: CHEST TWO VIEW 10/20/2018 [facility] INDICATION: Chest pain, difficulty breathing COMPARISON: 06/02/2015 FINDINGS: Moderate right pleural effusion is noted with right base atelectasis/infiltrate. Small left pleural effusion is noted. There is cardiomegaly. There is increased interstitial edema. Aorta contains calcifications. Aorta is tortuous. IMPRESSION: 1. Moderate right pleural effusion and right base atelectasis/infiltrate. 2. Small left pleural effusion. 3. Cardiomegaly and interstitial edema suggestive of congestive heart failure or fluid overload. SL: [id number] Chest 1view DX EXAM: XR CHEST 1 VIEW 06/02/2015 [facility] INDICATION: PICC Line Placement COMPARISON: 06/08/2013 at 0603 TECHNIQUE: Single AP view of the chest DISCUSSION: A right arm PICC is seen with its tip overlying the right atrium. Vascular calcifications are seen in a tortuous descending thoracic aorta. There is partial visualization of an IVC filter overlying the upper abdomen. The lungs are clear. No definite effusion identified. Biapical pleural thickening or scarring is stable. Stable mildly enlarged cardiac silhouette. IMPRESSION: No acute changes since the prior exam. Elbow 3 views DX EXAM: XR LEFT ELBOW 3 VIEWS 05/28/2015 [facility] DATE: 2015-05-28 11:00:00 INDICATION: Pain and swelling. COMPARISON: CT dated 05/23/2015 and prior radiographs dated 05/14/2013. TECHNIQUE: AP, lateral and oblique radiographs of the left elbow DISCUSSION: Again seen are postsurgical changes with a radial head prosthesis and the screw fixation of the olecranon. There is lucency around the stem of the radial head prosthesis, which appears new c ompared to the postoperative radiographs Two of the pins associated with the olecranon fixation project into the ulnohumeral joint as was seen on the recent CT. There is heterotopic ossification. Focal 8 mm lucency along the medial aspect of the olecranon could be projectional. There is diffuse soft tissue swelling. There is a large joint effusion. There are degenerative changes with joint space narrowing and subchondral cyst formation. IMPRESSION: 1. Diffuse soft tissue swelling with a large joint effusion. 2. Postsurgical changes with a radial head prosthesis and plate and screw fixation of the olecranon. Lucency surrounding the stem of the radial head prosthesis appears new compared to the postoperative radiographs and is concerning for infection or loosening. 3. Two of the pins associated with the olecranon fixation extend into the ulnohumeral joint, which was noted on the prior CT. 4. Ossific densities in the soft tissues along the volar aspect of the joint are most likely related to heterotopic ossification. Elbow wo contrast CT Examination: CT scan of the left elbow without contrast. 05/23/2015 [facility] HISTORY: ELBOW SWELLING LEFT COMPARISON: Plain films of the left elbow from 05/14/2013. DLP: 217.95 TECHNIQUE: Multiple axial CT images of the left elbow were obtained without the administration of intravenous contrast. Multiplanar and three-dimensional reformatted images were performed. FINDINGS: Remote postoperative changes of plate and screw fixation of a chronic, healed olecranon fracture is seen. Changes of radial head prosthesis placement are also seen. Chronic osseous remodeling of the coronoid process is seen, compatible with remote healed fracture. No acute bony fracture or joint dislocation is seen. There has been interval migration of a pin within the olecranon which partially protrudes into the ulnohumeral joint space (image 24 of series 401 B). Severe osteoarthrosis of the ulnohumeral joint is noted with joint space narrowing and marginal osseous spurring with subchondral cystic change and subchondral sclerosis. Large elbow joint effusion is seen. No osseous erosions are identified. The superficial soft tissues about the elbow are unremarkable. IMPRESSION: 1. Remote postoperative changes of plate and screw fixation of a chronic healed olecranon fracture. There has been interval migration of a pin within the olecranon which now partially protrudes into the ulnohumeral joint. 2. Severe ulnohumeral joint osteoarthrosis. 3. Large elbow joint effusion. SL: 16 Consultation Notes No Data Provided for This Section Discharge Summaries No Data Provided for This Section History and Physicals No Data Provided for This Section Vital Signs Vital Sign Value Date Comments Source Heart Rate 87 12/25/2018 [facility] Systolic (mm Hg) 100 12/25/2018 [facility] Diastolic (mm Hg) 63 12/25/2018 [facility] Respitory Rate 16 12/25/2018 [facility] Temperature Oral (F) 98.3 F 12/25/2018 [facility] Systolic (mm Hg) 104 12/25/2018 [facility] Diastolic (mm Hg) 61 12/25/2018 [facility] Heart Rate 84 12/25/2018 [facility] Temperature Oral (F) 98.3 F 12/25/2018 [facility] Respitory Rate 16 12/25/2018 [facility] Respitory Rate 16 12/25/2018 [facility] Heart Rate 90 12/25/2018 [facility] Systolic (mm Hg) 137 12/25/2018 [facility] Diastolic (mm Hg) 88 12/25/2018 [facility] Temperature Oral (F) 98.5 F 12/25/2018 [facility] Weight 53.364 12/22/2018 [facility] Weight 57.455 12/22/2018 [facility] Height 165.1 cm 12/22/2018 [facility] BMI Calculated 21.08 12/22/2018 [facility] Weight 55.455 12/22/2018 [facility] Height 165.1 cm 12/22/2018 [facility] BMI Calculated 20.34 12/22/2018 [facility] Heart Rate 70 10/22/2018 [facility] Systolic (mm Hg) 138 10/22/2018 [facility] Diastolic (mm Hg) 52 10/22/2018 [facility] Temperature Oral (F) 98.3 F 10/22/2018 [facility] Systolic (mm Hg) 122 10/22/2018 [facility] Diastolic (mm Hg) 67 10/22/2018 [facility] Temperature Oral (F) 97.6 F 10/22/2018 [facility] Heart Rate 63 10/22/2018 [facility] Heart Rate 61 10/22/2018 [facility] Temperature Oral (F) 98.4 F 10/22/2018 [facility] Systolic (mm Hg) 137 10/22/2018 [facility] Diastolic (mm Hg) 62 10/22/2018 [facility] [facility] Respitory Rate 16 10/22/2018 [facility] Respitory Rate 16 10/22/2018 [facility] Respitory Rate 16 10/22/2018 [facility] BMI Calculated 22.85 10/21/2018 [facility] Weight 62.273 10/21/2018 [facility] Height 165.1 cm 10/21/2018 [facility] Height 165.1 cm 10/20/2018 [facility] Weight 65.455 10/20/2018 [facility] BMI Calculated 24.01 10/20/2018 [facility] Temperature Oral (F) 98.2 F 06/03/2015 [facility] Respitory Rate 18 06/03/2015 [facility] Heart Rate 56 06/03/2015 [facility] Systolic (mm Hg) 138 06/03/2015 [facility] Diastolic (mm Hg) 65 06/03/2015 [facility] Temperature Oral (F) 98.3 F 06/03/2015 [facility] Systolic (mm Hg) 175 06/03/2015 [facility] Diastolic (mm Hg) 79 06/03/2015 [facility] Respitory Rate 18 06/03/2015 [facility] Heart Rate 59 06/03/2015 [facility] Temperature Oral (F) 97.9 F 06/03/2015 [facility] Heart Rate 59 06/03/2015 [facility] Systolic (mm Hg) 141 06/03/2015 [facility] Diastolic (mm Hg) 78 06/03/2015 [facility] Respitory Rate 18 06/03/2015 [facility] Height 165.1 cm 05/31/2015 [facility] Weight 65.455 05/31/2015 [facility] Weight 65.455 05/29/2015 [facility] BMI Calculated 24.01 05/29/2015 [facility] Height 165.1 cm 05/29/2015 [facility] BMI Calculated 24.01 05/28/2015 [facility] Weight 65.455 05/28/2015 [facility] Height 165.1 cm 05/28/2015 [facility] Encounters Location Location Encounter Encounter Reason Attending ADM DC Status Source Details Type Number For Provider Date Date Visit [facility] Outpt Diag [id number] Jayesh 05/23 05/24 [facility] 0 [place] [facility] Inpatient [id number] Maryam 05/28 06/04 Fidel Olivia 1 Khraish /2014 [facility] Observation [id number] Roger 10/20 10/22 Corwin 2 Jose Antonio /2018 [facility] Emergency [id number] Dima 10/31 10/31 Cor[place] 3 Axel /2018 [facility] Inpatient [id number] Donell 12/22 12/25 Corwin 4 Sacele /2018 [facility] Procedures Procedure Code Date Perfomer Comments Source Cataract surgery [id number] [facility] [place] Cataract surgery [id number] [facility] Cataract surgery [id number] [facility] Cataract surgery [id number] [facility] Assessment and Plan Assessment and Plan Date Source Extracted from:Title: Cardiology Progress Note 12/25/2018 [facility] Author: Pop Barrera MD Date: 12/25/18 Impression and Plan Acute on chronic diastolic heart failure Hx of Takotsubo cardiomyopathy with clean coronary arteries in 2012 History of DVT on Coumadin Moderate mitral regurgitation Hypertension History of paroxysmal atrial fibrillation Chronic anemia # Diastolic CHF - On GDMT - Off . Transition to po lasix at higher dose of 40 mg starting tomorrow. - 12/25: transitioned to PO lasix # H/o DVT and PAF - In NSR. On BB. On coumadin # HTN - Stable. Adjust as needed # MR - Optimize volume status as above Stable for d/c home from a CV standpoint Extracted from:Title: Cardiology Consult Note Author: Pop Barrera MD Date: 12/22/18 Impression and Plan SOB Acute diastolic CHF exacerbation DVT on warfarin Afib CMP HTN - Cont with IV lasix for now - No evidence of ACS - BP has been borderline, consider holding anti-HTN while diuresing - Consider adding nick since Cr is normal - Cont with asa and statin therapies - Cont with warfarin at home dose for DVT, INR is therapeutic, consider NOACs - Strict I/O, Na restriction Thank you. Cardiology will follow. Extracted from:Title: History and Physical Author: Gordy Chavez MD Date: 12/21/18 1.Acute dyspnea(R06.00) Likely related to #2, #3. Ordered: Admit/Condition, 12/21/18 21:09:00 CDT, Status: Out Patient with Observation Services, Telemetry Capable Location, Expected LOS: 1 Midnight, Gordy Chavez MD, Admit MD Review/Approve Yes, Isolation: Contact, Acute dyspnea | Acute diastolic heart fa... 2.Acute on chronic diastolic CHF (congestive heart failure)(I50.33) Lasix IV. 3.Moderate mitral regurgitation(I34.0) 4.Chronic anemia(D64.9) Monitor CBC. 5.History of DVT (deep vein thrombosis)(Z86.718) Check PT/PTT. ResumeCoumadin if INRless than 2.0. 6.On continuous oral anticoagulation(Z79.01) As #5. Coumadin. observation Extracted from:Title: Progress Note * 10/22/2018 [facility] Author: Del Verma DO Date: 10/22/18 Impression and Plan The patient was seen and examined by me with the resident/SPECIAL EDUCATION COORDINATOR/PA and I agree with the History/Exam documented. IMPRESSION: 1. Acute on chronic diastolic heart failure. 2. LV outflow obstruction with intracavitary gradient. 3. Moderate mitral regurgitation. 4. Mild mitral stenosis. 5. Hypertension. The patient's loud murmur likely comes from her mitral regurgitation and moderate LV outflow tract obstruction. Would decrease the diuretics to ensure an adequate left ventricular filling. Encour age PO hydration. Change coreg to metoprolol to relieve obstruction. No evidence of acute coronary syndrome. Please try to avoid afterload reduction. If needed for BP control can use ARB. She can b e d/c from a CV standpoint with outpatient follow up. Extracted from:Title: History and Physical Author: Nohemy Tinsley MD Date: 10/21/18 Patient is a 72-year-old female past medical history of anxiety, GERD, hyperlipidemia, hypertension, presentswith complaints of chest pressure that has been going on for 3 days Problems Chest pressure most likely secondary to heart failure, however rule out ACS. Hyponatremiapossibly secondary to pseudohyponatremia fromhyperglycemia Diabetes Hypertension History of DVT on Coumadin, status post IVC placement Plan Consult cardiology.rule out ACS. Trend troponins. Lasix 40 mg ivtwice daily. Strict I's and O's,echocardiogram. Daily weights. IL fluid restriction IVF. Monitor blood sugar and sodium. Diabetes with sliding scale insulinas well as Lantus Hypertension resume home meds. Continue Coumadin Ambulation 1-2 midnights Extracted from:Title: ORTHO TRAUMA 06/04/2015 [facility] Author: Anastacia Bridges NP Date: 06/03/15 ORS TRAUMA Doing ok NAD Comfortable, some pain to left lateral elbow Resting in bed Vitals and Temp: Vitals Tmp(F) Pulse BP RR SpO2 FIO2 06/03 04:43 97.9 59 141/78 18 96 --- 06/03 00:01 98.0 56 162/61 19 98 --- 06/02 19:28 98.3 83 125/58 18 97 --- 06/02 17:47 97.9 58 166/65 20 98 --- 06/02 13:38 98.2 59 160/61 20 99 --- 24 Hr Tmax: 98.3F (36.83c) at 06/02 19:28 Vital Signs are the last 5 in the past 48 hours. Scheduled Meds (9):amLODIPine, (Suspended) ceFAZolin (Ancef), docusate, enoxaparin, metoprolol (metoprolol tartrate), predniSONE, sodium chloride ( Saline Flush 0.9%), sodium chloride (Saline Flush 0.9%), vancomycin + Sodium Chloride 0.9% IV 100 mL Unscheduled Meds (3):lidocaine (lidocaine 1%), lidocaine (lidocaine 1%), sodium chloride (sodium chloride bacteriostatic 0.9% injectable solution) PRN Meds (8):acetaminophen-hydrocodone (acetaminophen-hydrocodone 325 mg-10 mg oral tablet), acetaminophen, melatonin, ondansetron, senna (Senna Smooth), sodium chloride (Saline Flush 0.9%), sodium chloride (Saline Flush 0.9%), tramadol One Time Meds: None Continuous Infusions: None [facility] BUN: 18 mg/dL (05/31/15) Hct: 30.0 % (05/31/15) Hgb: 9.8 g/dL (05/31/15) MCH: 30.3 pg (05/31/15) MCHC: 32.6 g/dL (05/31/15) MCV: 92.8 fL (05/31/15) MPV: 9.2 fL (05/31/15) Platelet: 202 K/CMM (05/31/15) RBC: 3.23 M/CMM (05/31/15) RDW: 14.8 % (05/31/15) WBC: 9.0 K/CMM (05/31/15) Troponin-T: <0.010 ng/mL (05/30/15) ERICH BALLARD R/M/U Intact R/M/U/AIN/PIN Fingers wwp with BCR Splint removed, sutures in place - well approximated Sling, elevated DIAGNOSES - L elbow infection A/P 69 y/o F s/p left elbow infection SURGERIES 05/29/2015 I&D,HWR, EUA left elbow PLAN 1. Pain: Per primary team 2. DVT prophylaxis: Defer to the primary team for management. Orthopedics recommends ASA 325 mg PO BID x 2 weeks from date of surgery. 3. HH 9.8 4. Abx: Dr. Brice with ID consulted. See his progress note 06/01/2015 Intraoperative cultures noted, therefore I will discontinue cefepime at this time. We are awaiting a vancomycin trough that will be drawn this evening, goal level is between 15 and 20. The patient is also awaiting PICC line placement as she will require a 4 to 6 week course of IV antibiotics postdischarge. Patient can be discharged home from my standpoint with home health once cleared by primary service. Patient will follow up with me in my office 1 week postdischarge. 5. PT/OT: Consulted, gentle ROM to left elbow 6. WBS: REINALDO JUNG 7. Dressings: - Keep dressings clean and dry, changing every other day beginning post-op day 5. - Dressings may be removed and not reapplied on post-operative day 10 if all incision sites are dry. - Do not apply creams or ointments to incisions and do not allow incisions to become wet until cleared by Dr. Jimenes. 8. Bowel regimen: Per primary team 9. Anticipated dispo: No further orthopedic intervention, follow up with Dr. Jimenes on Jun 11, 2015. Call [phone] for appointment. 10. Plan for surgery: None per ORS. 11. Please call Ortho for any question or concerns. Extracted from:Title: Hospitalist Progress Note Author: Maryam Parada MD Date: 05/28/15 Assessment/Plan 1.Septic joint of left elbow Surgical cultures to be obtained tomorrow; begin empiric therapy after surgery 2.Chronic atrial fibrillation Rate controlled for now Check EKG preoperatively Will resume warfarin post operatively Ordered: metoprolol, 50 mg, Route: PO, Drug form: TAB, Q12H, Dosing Weight 65.455, kg, Start date: 05/28/15 21:00:00, Duration: 30 day, Stop date: 06/27/15 9:00:00 3.Bullous pemphigoid Continue Prednisone 10 mg daily today, then tomorrow before surgery, pulse HC 50 mg IV q 6 hoursx 4 doses before resuming Prednisone Ordered: predniSONE, 10 mg, Route: PO, Drug form: TAB, Daily, Dosing Weight 65.455, kg , Start date: 05/29/15 9:00:00, Duration: 30 day, Stop date: 06/27/15 9:00:00 4.Immunosuppression due to chronic steroids Will not wean during this hospitalization 5.Takotsubo cardiomyopathy Update ECHO to assess EF and etiology of her new murmur She is at moderate risk for a perioperative cardiovascular event, and will need ECHO prior to proceding with surgery to help optimize medication regimen Ordered: ECHO Complete 6.Acute pain due to injury see orders Orders: acetaminophen, 650 mg, Route: PO, Drug form: TAB, Q4H, Dosing Weight 65.455, kg, PRN Pain 1-3/Temp > 100.4 F, Start date: 05/28/15 16:12:00, Duration : 30 day, Stop date: 06/27/15 16:11:00 acetaminophen-hydrocodone, 1 tab, Route: PO, Dosing Weight 65.455, kg, Q4H, PRN Pain Score 7-10, Start date: 05/28/15 16:12:00, Duration: 30 day, Stop date : 06/27/15 16:11:00 docusate, 100 mg, Route: PO, Drug form: CAP, BID, Dosing Weight 65.455, kg, Start date: 05/28/15 17:00:00, Duration: 30 day, Stop date: 06/27/15 9:00:00 enoxaparin, 40 mg, Route: SUB-Q, Drug form: INJ, [id number], Dosing Weight 65.455, kg, Start date: 05/28/15 17:00:00, Duration: 30 day, Stop date: 17:00:00 melatonin, 3 mg, Route: PO, Bedtime, Dosing Weight 65.455, kg, PRN Insomnia, Start date: 05/28/15 16:12:00, Duration: 30 day, Stop date: 06/27/15 16:11:00 ondansetron, 4 mg, Route: IVP, Q8H, Dosing Weight 65.455, kg, PRN Nausea and Vomiting, Start date: 05/28/15 16:12:00, Duration: 30 day, Stop date: 06/27/15 16:11:00 senna, 8.6 mg, Route: PO, Q12H, Dosing Weight 65.455, kg, PRN Constipation, Start date: 05/28/15 16:12:00, Duration: 30 day, Stop date: 06/27/15 16:11:00 tramadol, 50 mg, Route: PO, Drug form: TAB, Q6H, Dosing Weight 65.455, kg, PRN Pain Score 4-6, Start date: 05/28/15 16:12:00, Duration: 30 day, Stop date: 06/27/15 16:11:00 Admit / Condition Ambulation CDM Geriatric Admission Complete Blood Count w/ Diff and Platelet Comprehensive Metabolic Panel Diet Heart Healthy Intake and Output Magnesium Level Patient Education AC4 Patient Education AC4 Phosphorus Level Protocols Resuscitation (Code) Status SCD Application Thyroid Stimulating Hormone UA with culture if indicated Vital Signs Weigh patient AC4 Prophylaxis Lovenox Disposition Pending surgery and culture results [facility] Hospitalist service is primary. Page [phone] with concerns. Plan of Care No Data Provided for This Section Social History Social History Date Source Social History TypeResponse 12/22/2018 [facility] Smoking Status Never smoker; Type: Cigarettes; Exposure to Tobacco Smoke None; Cigarette Smoking Last 365 Days Unable to obtain; Reg Smoking Cessation Counseling No entered on: 12/21/18 Social History TypeResponse 10/21/2018 [facility] Smoking Status Current every day smoker; Exposure to Tobacco Smoke None; Cigarette Smoking Last 365 Days No; Reg Smoking Cessation Counseling No entered on: 10/21/18 Social History TypeResponse 05/28/2015 [facility] Smoking Status Current every day smoker; Type: Cigarettes; Exposure to Tobacco Smoke None; Cigarette Smoking Last 365 Days Unable to obtain; Reg Smoking Cessation Counseling No No data available for this 05/24/2015 [facility] section Family History No Data Provided for This Section Advance Directives No Data Provided for This Section Functional Status No Data Provided for This Section
--- OUTSIDE RECORDS SUMMARY | 2019-02-20 16:33 | XMS REPORT | Summary of Care ---
:1945 Author Organization [facility] Address [id number] [place] [id number]- Encounter HQ Orlando_saulo(FIN) [phone] Date(s): 12/21/18 - 12/25/18 [facility] [id number] [place] [address] [phone] Discharge Disposition: Home or Self Care Attending Physician: Donell Peterson MD Admitting Physician: Donell Peterson MD Vital Signs Most recent to oldest 1 2 3 [Reference Range]: Height 165.1 cm 165.1 cm (12/21/18 10:31 PM) (12/21/18 7:48 PM) Current Weight 54.114 kg 54.114 kg (12/24/18 11:41 PM) (12/24/18 11:39 PM) Temperature Oral [96.4-99.1 98.3 DegF 98.3 DegF 98.5 DegF DegF] (12/25/18 11:28 AM) (12/25/18 7:40 AM) (12/25/18 4:10 AM) Blood Pressure [90-140/60-90 100/63 mmHg 104/61 mmHg 137/88 mmHg mmHg] (12/25/18 11:28 AM) (12/25/18 7:40 AM) (12/25/18 4:10 AM) Respiratory Rate [14-20 16 BRMIN 16 BRMIN 16 BRMIN BRMIN] (12/25/18 11:28 AM) (12/25/18 7:40 AM) (12/25/18 4:10 AM) Peripheral Pulse Rate [60-100 87 bpm 84 bpm 90 bpm bpm] (12/25/18 11:28 AM) (12/25/18 7:40 AM) (12/25/18 4:10 AM) Weight 53.364 kg 57.455 kg 55.455 kg (12/22/18 6:07 AM) (12/21/18 10:31 PM) (12/21/18 7:48 PM) Body Mass Index 21.08 m2 20.34 m2 (12/21/18 10:31 PM) (12/21/18 7:48 PM) Problem List Condition Effective Dates Status Health Status Informant Acute pneumococcal Resolved bronchitis(Confirmed) Atrial fibrillation(Confirmed) Resolved CATARACT(Confirmed)1 Resolved Falls(Confirmed) Active MRSA(Confirmed)2, 3, 4 05/29/15 Active NSTEMI - Non-ST segment elevation Active NJ(Confirmed) Pemphigus vulgaris(Confirmed) Active Septicemia(Confirmed) Active Takotsubo cardiomyopathy(Confirmed) Active 1bilateral rmc189/5/15 left elbow [id number]/10/13 MRSA [id number] added by Discern Expert. Allergies, Adverse Reactions, Alerts No Known Medication Allergies Medications acetaminophen 650 mg, 2 tab, Route: PO, Drug form: TAB, Q4H, Dosing Weight 55.455, kg, PRN Pain 1-3/Temp > 100.4 F, Start date: 12/21/18 22:15:00 CDT, Duration: 30 day , Stop date: 01/20/19 22:14:00 CDT Notes: Do not exceed 4 gm/day. (Same as: Tylenol) Start Date: 12/21/18 Stop Date: 12/25/18 Status: Discontinuedaspirin 81 mg, 1 tab, Route: PO, Drug form: ECTAB, Daily, Dosing Weight 55.455, kg, Start date: 12/22/18 9:00:00 CDT, Duration: 30 day, Stop date: 01/20/19 9:00:00 CDT Notes: Do not crush or chew.(Same As: Ecotrin) Start Date: 12/22/18 Stop Date: 12/25/18 Status: Discontinuedatorvastatin 20 mg, 2 tab, Route: PO, Drug form: TAB, Bedtime, Dosing Weight 55.455, kg, Start date: 12/22/18 21:00:00 CDT, Duration: 30 day, Stop date: 01/20/19 21:00: 00 CDT Notes: (Same As: Lipitor) Start Date: 12/22/18 Stop Date: 12/25/18 Status: Discontinuedatorvastatin 10 mg oral tablet 20 mg=2 tab, PO, Bedtime, # 60 tab, 0 Refill(s), Pharmacy: [facility] Start Date: 12/25/18 Stop Date: 01/24/19 Status: Orderedbisacodyl 10 mg, 1 supp, Route: FL, Drug form: SUPP, Daily, Dosing Weight 55.455, kg, PRN Constipation, Start date: 12/21/18 22:15:00 CDT, Duration: 30 day, Stop date: 22:14:00 CDT Notes: (Same As: Dulcolax, Bisco-Lax) Start Date: 12/21/18 Stop Date: 12/25/18 Status: Discontinuedcalcium gluconate + Sodium Chloride 0.9% IV 100 mL 2 gm, 20 mL, Route: IVPB, PRN, Dosing Weight 55.455, kg, PRN Abnormal Lab Result , For NON-ICU Patients Only., Start date: 12/21/18 22:12:00 CDT, Duration: 30 day, Stop date: 01/20/19 22:11:00 CDT Notes: WASTE: F/P - Sink; E - Municipal Trash Bin Start Date: 12/21/18 Stop Date: 12/25/18 Status: Discontinuedcalcium gluconate + Sodium Chloride 0.9% IV 100 mL 3 gm, 30 mL, Route: IVPB, PRN, Dosing Weight 55.455, kg, PRN Abnormal Lab Result , For NON-ICU Patients Only., Start date: 12/21/18 22:12:00 CDT, Duration: 30 day, Stop date: 01/20/19 22:11:00 CDT Notes: WASTE: F/P - Sink; E - Municipal Trash Bin Start Date: 12/21/18 Stop Date: 12/25/18 Status: DiscontinuedDextrose 50% Syringe 25 gm, 50 mL, Route: IVP, Drug Form: INJ, Dosing Weight 55.455, kg, PRN, PRN Blood Glucose Results, Start date: 12/21/18 22:15:00 CDT, Duration: 30 day, Stop date: 01/20/19 22:14:00 CDT Start Date: 12/21/18 Stop Date: 12/25/18 Status: DiscontinuedDextrose 50% Syringe 12.5 gm, 25 mL, Route: IVP, Drug Form: INJ, Dosing Weight 55.455, kg, PRN, PRN Blood Glucose Results, Start date: 12/21/18 22:15:00 CDT, Duration: 30 day, Stop date: 01/20/19 22:14:00 CDT Start Date: 12/21/18 Stop Date: 12/25/18 Status: Discontinuedenoxaparin 40 mg, Route: SUB-Q, Drug form: INJ, [id number], Dosing Weight 55.455, kg, Start date: 12/21/18 23:00:00 CDT, Duration: 30 day, Stop date: 01/19/19 23:00:00 CDT Start Date: 12/21/18 Stop Date: 12/21/18 Status: Canceledglucagon 1 mg, Route: IM, Drug form: PDR/INJ, PRN, Dosing Weight 55.455, kg, PRN Blood Glucose Results, Startdate: 12/21/18 22:15:00 CDT, Duration: 30 day, Stop date: 01/20/19 22:14:00 CDT Start Date: 12/21/18 Stop Date: 12/25/18 Status: Discontinuedhydrochlorothiazide 25 mg oral tablet 12.5 mg, 0.5 tab, Route: PO, Drug form: TAB, BID, Start date: 12/22/18 21:00:00 CDT, Duration: 30 day, Stop date: 01/21/19 9:00:00 CDT Notes: (Same as: Hydrodiuril) With food. Start Date: 12/22/18 Stop Date: 12/23/18 Status: Discontinuedhydrochlorothiazide-lisinopril 12.5 mg-20 mg oral tablet 1 tab, Route: PO, Drug Form: TAB, Dosing Weight 53.364, kg, BID, Start date: 17:00:00 CDT, Duration: 30 day, Stop date: 01/21/19 9:00:00 CDT Start Date: 12/22/18 Stop Date: 12/22/18 Status: DiscontinuedLasix 40 mg, 4 mL, Route: IVP, Drug form: INJ, ONCE, Dosing Weight 55.455, kg, Priority: STAT, Start date:12/21/18 20:59:00 CDT, Stop date: 12/21/18 20:59:00 CDT Notes: (Same as: Lasix) MEDICATION WASTE Product Size: 40 mgProduct Wasted: ___ mg Start Date: 12/21/18 Stop Date: 12/21/18 Status: CompletedLasix 40 mg, 4 mL, Route: IV, Drug form: INJ, Q12H, Dosing Weight 55.455, kg, Start date: 12/22/18 9:00:00CDT, Duration: 30 day, Stop date: 01/20/19 21:00:00 CDT Notes: (Same as: Lasix) MEDICATION WASTE Product Size: 40 mgProduct Wasted: ___ mg Start Date: 12/22/18 Stop Date: 12/24/18 Status: DiscontinuedLasix 40 mg oral tablet 40 mg=1 tab, PO, Daily, # 30 tab, 0 Refill(s), Pharmacy: [facility] Start Date: 12/25/18 Stop Date: 01/24/19 Status: OrderedLasix 40 mg oral tablet 40 mg, 1 tab, Route: PO, Drug form: TAB, Daily, Dosing Weight 53.364, kg, Start date: 12/25/18 9:00:00 CDT, Duration: 30 day, Stop date: 01/23/19 9:00:00 CDT Notes: (Same as: Lasix) May cause GI upset. Give with food or milk. Start Date: 12/25/18 Stop Date: 12/25/18 Status: Discontinuedlisinopril 20 mg, 1 tab, Route: PO, Drug form: TAB, BID, Start date: 12/22/18 21:00:00 CDT , Duration: 30 day, Stop date: 01/21/19 9:00:00 CDT Notes: (Same as: Prinivil, Zestril) Start Date: 12/22/18 Stop Date: 12/25/18 Status: Discontinuedlisinopril 20 mg oral tablet 20 mg=1 tab, PO, BID, # 60 tab, 0 Refill(s), Pharmacy: [facility] Start Date: 12/25/18 Stop Date: 01/24/19 Status: Orderedmagnesium oxide 800 mg, 2 tab, Route: PO, Drug form: TAB, PRN, Dosing Weight 55.455, kg, PRN Abnormal Lab Result, For NON-ICU Patients Only., Start date: 12/21/18 22:12:00 CDT, Duration: 30 day, Stop date: 01/20/19 22:11:00 CDT Notes: (Same as: Mag-Ox 400)Magnesium oxide [id number] elemental magnesiumDose= ____mg magnesium oxide (___mg elemental magnesium) Start Date: 12/21/18 Stop Date: 12/25/18 Status: Discontinuedmagnesium sulfate 2 gm, 50 mL, Route: IVPB, Drug form: INJ, PRN, Dosing Weight 55.455, kg, PRN Abnormal Lab Result, For NON-ICU Patients Only., Start date: 12/21/18 22:12:00 CDT, Duration: 30 day, Stop date: 01/20/19 22:11:00 CDT Notes: WASTE: F/P - Sink; E - Municipal Trash Bin Start Date: 12/21/18 Stop Date: 12/25/18 Status: Discontinuedmagnesium sulfate 1 gm, 100 mL, Route: IVPB, Drug form: INJ, PRN, Dosing Weight 55.455, kg, PRN Abnormal Lab Result, For NON-ICU Patients Only., Start date: 12/21/18 22:12:00 CDT, Duration: 30 day, Stop date: 01/20/19 22:11:00 CDT Notes: WASTE: F/P - Sink; E - Municipal Trash Bin Start Date: 12/21/18 Stop Date: 12/25/18 Status: Discontinuedmelatonin 3 mg, 1 tab, Route: PO, Drug form: TAB, Bedtime, Dosing Weight 55.455, kg, PRN Insomnia, Start date:12/21/18 22:15:00 CDT, Duration: 30 day, Stop date: 22:14:00 CDT Notes: (Same as: Melatonin) Start Date: 12/21/18 Stop Date: 12/25/18 Status: Discontinuedmetoprolol tartrate 50 mg, 1 tab, Route: PO, Drug form: TAB, Q12H, Dosing Weight 53.364, kg, Start date: 12/22/18 21:00:00 CDT, Duration: 30 day, Stop date: 01/21/19 9:00:00 CDT Notes: (Same as: Lopressor) Start Date: 12/22/18 Stop Date: 12/25/18 Status: Discontinuedomeprazole 40 mg, Route: PO, Drug form: DRC, Daily, Dosing Weight 53.364, kg, Start date: 12/23/18 9:00:00 CDT,Duration: 30 day, Stop date: 01/21/19 9:00:00 CDT Start Date: 12/23/18 Stop Date: 12/22/18 Status: Discontinuedondansetron 4 mg, 2 mL, Route: IVP, Drug form: INJ, Q8H, Dosing Weight 55.455, kg, PRN Nausea & Vomiting, Start date: 12/21/18 22:15:00 CDT, Duration: 30 day, Stop date: 01/20/19 22:14:00 CDT Notes: (Same as: Tori) MEDICATION WASTE Product Size: 4 mgProduct Wasted: ___ mg Start Date: 12/21/18 Stop Date: 12/25/18 Status: Discontinuedpotassium chloride 20 mEq, 15 mL, Route: NJ, Drug form: LIQ, PRN, Dosing Weight 55.455, kg, PRN Abnormal Lab Result, For NON-ICU Patients Only, Start date: 12/21/18 22:12:00 CDT, Duration: 30 day, Stop date: 01/20/19 22:11:00 CDT Notes: (Same as: Potassium Chloride) Start Date: 12/21/18 Stop Date: 12/25/18 Status: Discontinuedpotassium chloride 20 mEq, 1 tab, Route: PO, Drug form: ERTAB, PRN, Dosing Weight 55.455, kg, PRN Abnormal Lab Result, For NON-ICU Patients Only, Start date: 12/21/18 22:12:00 CDT, Duration: 30 day, Stop date: 01/20/19 22:11:00 CDT Notes: (Same as: K-Dur 20)"Do Not Crush" Give with food and full glass of waterFor patients unable to swallow tablet, dissolve in one half glass of water. Allow about 2 minutes for the tablets to disintegrate. Stir before giving to prepare slurry and administer.Please exclude Patients with feedingtube less than 14 [place] (Dobhoff, J-tube etc) and pediatric and patients. Start Date: 12/21/18 Stop Date: 12/25/18 Status: Discontinuedpotassium chloride 10 mEq, 100 mL, Route: IVPB, Drug form: INJ, PRN, Dosing Weight 55.455, kg, PRN Abnormal Lab Result,For NON-ICU Patients Only, Start date: 12/21/18 22:12:00 CDT , Duration: 30 day, Stop date: 01/20/19 22:11:00 CDT Notes: Infuse at a rate of 10 mEq/hr.(Same as: KCL) Start Date: 12/21/18 Stop Date: 12/25/18 Status: Discontinuedpotassium phosphate + Sodium Chloride 0.9% IV 250 mL 30 mmol, 10 mL, Route: IVPB, PRN, Dosing Weight 55.455, kg, PRN Abnormal Lab Result, For NON-ICU Patients Only., Start date: 12/21/18 22:12:00 CDT, Duration : 30 day, Stop date: 01/20/19 22:11:00 CDT Notes: (Same as: K Phosphate.)Do not infuse phosphorous concurrently in the same line as TPN or IVF that contains calcium. For double lumen central lines, phosphorous may be infused in a separate lumenfrom TPN. 1 mMol phoshate has 1.47 mEq potassium Infuse over 4 hours Start Date: 12/21/18 Stop Date: 12/25/18 Status: Discontinuedpotassium phosphate + Sodium Chloride 0.9% IV 250 mL 15 mmol, 5 mL, Route: IVPB, PRN, Dosing Weight 55.455, kg, PRN Abnormal Lab Result, For NON-ICU Patients Only., Start date: 12/21/18 22:12:00 CDT, Duration : 30 day, Stop date: 01/20/19 22:11:00 CDT Notes: (Same as: K Phosphate.)Do not infuse phosphorous concurrently in the same line as TPN or IVF that contains calcium. For double lumen central lines, phosphorous may be infused in a separate lumenfrom TPN. 1 mMol phoshate has 1.47 mEq potassium Infuse over 4 hours Start Date: 12/21/18 Stop Date: 12/25/18 Status: Discontinuedpotassium phosphate-sodium phosphate 250 mg-280 mg-160 mg oral powder for reconstitution 2 pkt, Route: PO, Drug Form: PDR/REC, Dosing Weight 55.455, kg, PRN, PRN Abnormal Lab Result, For NON-ICU Patients Only, Start date: 12/21/18 22:12:00 CDT, Duration: 30 day, Stop date: 01/20/19 22:11:00 CDT Notes: (Same as: Phos-NaK) Each 1.5 gm pkt has 250mg phosphorous. Mix w/2.5oz water and stir. Start Date: 12/21/18 Stop Date: 12/25/18 Status: DiscontinuedpredniSONE 10 mg oral tablet 4 tabs, PO, Daily, 0 Refill(s) Start Date: 12/21/18 Stop Date: 12/25/18 Status: DiscontinuedProtonix 40 mg, 1 tab, Route: PO, Drug form: ECTAB, Before Dinner, Start date: 12/22/18 16:30:00 CDT, Duration: 30 day, Stop date: 01/20/19 16:30:00 CDT Notes: Tablet should not be chewed or crushed.(Same as: Protonix) Start Date: 12/22/18 Stop Date: 12/25/18 Status: DiscontinuedSaline Flush 0.9% 10 mL, Route: IVP, Drug Form: INJ, Dosing Weight 55.455, kg, PRN, PRN Line Flush , Start date: 12/21/18 20:00:00 CDT, Duration: 30 day, Stop date: 01/20/19 19:59 :00 CDT Notes: (Same as: BD Posiflush) Start Date: 12/21/18 Stop Date: 12/25/18 Status: Discontinuedsimvastatin 80 mg, 2 tab, Route: PO, Drug form: TAB, Bedtime, Dosing Weight 53.364, kg, Start date: 12/22/18 21:00:00 CDT, Duration: 30 day, Stop date: 01/20/19 21:00: 00 CDT Notes: (Same as: Zocor) Start Date: 12/22/18 Stop Date: 12/23/18 Status: Discontinuedsodium phosphate + Dextrose 5% in Water IV 250 mL 15 mmol, 5 mL, Route: IVPB, PRN, Dosing Weight 55.455, kg, PRN Abnormal Lab Result, For NON-ICU Patients Only., Start date: 12/21/18 22:12:00 CDT, Duration : 30 day, Stop date: 01/20/19 22:11:00 CDT Notes: Infuse over 4 hour. Do not infuse phosphorous concurrently in the same line as TPN or IVF that contains calcium. For double lumen central lines, phosphorous may be infused in a separate lumen from TPN. Start Date: 12/21/18 Stop Date: 12/25/18 Status: Discontinuedsodium phosphate + Dextrose 5% in Water IV 250 mL 30 mmol, 10 mL, Route: IVPB, PRN, Dosing Weight 55.455, kg, PRN Abnormal Lab Result, For NON-ICU Patients Only., Start date: 12/21/18 22:12:00 CDT, Duration : 30 day, Stop date: 01/20/19 22:11:00 CDT Notes: Infuse over 4 hour. Do not infuse phosphorous concurrently in the same line as TPN or IVF that contains calcium. For double lumen central lines, phosphorous may be infused in a separate lumen from TPN. Start Date: 12/21/18 Stop Date: 12/25/18 Status: Discontinuedwarfarin 5 mg, 1 tab, Route: PO, Drug form: TAB, Q5PM, Dosing Weight 57.455, kg, Start date: 12/22/18 17:00:00 CDT, Duration: 30 day, Stop date: 01/20/19 17:00:00 CDT Notes: Nurse to ensure documentation of patient education per anticoagulation policy.Avoid large intake of vitamin-K containing foods diet.WASTE: F/P - P Waste Black; E - P Waste Black(Same As: Coumadin) Start Date: 12/22/18 Stop Date: 12/25/18 Status: Discontinuedwarfarin 6 mg, 3 tab, Route: PO, Drug form: TAB, Q5PM, Dosing Weight 57.455, kg, Start date: 12/25/18 17:00:00 CDT, Duration: 30 day, Stop date: 01/23/19 17:00:00 CDT Notes: Nurse to ensure documentation of patient education per anticoagulation policy.Avoid large intake of vitamin-K containing foods diet.(Same As: Coumadin) WASTE: F/P - P Waste Black; E - P Waste Black Start Date: 12/25/18 Stop Date: 12/25/18 Status: Discontinuedwarfarin 2 mg oral tablet 6 mg=3 tab, PO, Q5PM, # 42 tab, 0 Refill(s), Pharmacy: [facility] Start Date: 12/25/18 Stop Date: 01/08/19 Status: Ordered Results Most recent to oldest 1 2 3 [Reference Range]: Neutrophils # [1.5-8.1 3.1 K/CMM 3.1 K/CMM 3.0 K/CMM K/CMM] (12/25/18 3:34 AM) (12/24/18 3:38 AM) (12/23/18 3:31 AM) Lymphocytes # [1.0-5.5 1.7 K/CMM 1.8 K/CMM 1.9 K/CMM K/CMM] (12/25/18 3:34 AM) (12/24/18 3:38 AM) (12/23/18 3:31 AM) Monocytes # [0.0-0.8 K/CMM] 0.5 K/CMM 0.6 K/CMM 0.7 K/CMM (12/25/18 3:34 AM) (12/24/18 3:38 AM) (12/23/18 3:31 AM) Eosinophils # [0.0-0.5 0.3 K/CMM 0.2 K/CMM 0.2 K/CMM K/CMM] (12/25/18 3:34 AM) (12/24/18 3:38 AM) (12/23/18 3:31 AM) BNP [<=100 pg/mL] 1583 pg/mL *HI* (12/21/18 7:50 PM) eGFR 41 mL/min/1.73m2 1 51 mL/min/1.73m2 2 48 mL/min/1.73m2 3 *NA* *NA* *NA* (12/25/18 3:34 AM) (12/24/18 3:38 AM) (12/23/18 3:31 AM) A/G Ratio [0.7-1.6] 0.8 0.8 (12/22/18 6:42 AM) (12/21/18 7:50 PM) Albumin Lvl [3.5-5.0 g/dL] 2.8 g/dL 3.1 g/dL *LOW* *LOW* (12/22/18 6:42 AM) (12/21/18 7:50 PM) Alk Phos [39-136 unit/L] 60 unit/L 68 unit/L (12/22/18 6:42 AM) (12/21/18 7:50 PM) ALT [0-65 unit/L] 13 unit/L 17 unit/L (12/22/18 6:42 AM) (12/21/18 7:50 PM) AGAP [10.0-20.0 mEq/L] 12.4 mEq/L 11.5 mEq/L 11.5 mEq/L (12/25/18 3:34 AM) (12/24/18 3:38 AM) (12/23/18 3:31 AM) AST [0-37 unit/L] 19 unit/L 22 unit/L (12/22/18 6:42 AM) (12/21/18 7:50 PM) B/C Ratio [6-25] 24 26 (12/22/18 6:42 AM) *HI* (12/21/18 7:50 PM) Basophils [0.0-1.0 %] 0.5 % 0.6 % 0.4 % (12/25/18 3:34 AM) (12/24/18 3:38 AM) (12/23/18 3:31 AM) BUN [7-22 mg/dL] 29 mg/dL 27 mg/dL 29 mg/dL *HI* *HI* *HI* (12/25/18 3:34 AM) (12/24/18 3:38 AM) (12/23/18 3:31 AM) Calcium Lvl [8.5-10.5 8.3 mg/dL 8.4 mg/dL 8.0 mg/dL mg/dL] *LOW* *LOW* *LOW* (12/25/18 3:34 AM) (12/24/18 3:38 AM) (12/23/18 3:31 AM) Total CK [12-191 unit/L] 50 unit/L (12/21/18 7:50 PM) Chloride Lvl [95-109 mEq/L] 100 mEq/L 101 mEq/L 103 mEq/L (12/25/18 3:34 AM) (12/24/18 3:38 AM) (12/23/18 3:31 AM) CO2 [24-32 mEq/L] 29 mEq/L 30 mEq/L 30 mEq/L (12/25/18 3:34 AM) (12/24/18 3:38 AM) (12/23/18 3:31 AM) Creatinine Lvl [0.50-1.40 1.29 mg/dL 1.09 mg/dL 1.15 mg/dL mg/dL] (12/25/18 3:34 AM) (12/24/18 3:38 AM) (12/23/18 3:31 AM) Eosinophils [0.0-4.0 %] 4.8 % 3.3 % 4.0 % *HI* (12/24/18 3:38 AM) (12/23/18 3:31 AM) (12/25/18 3:34 AM) Globulin [2.7-4.2 g/dL] 3.5 g/dL 4.1 g/dL (12/22/18 6:42 AM) (12/21/18 7:50 PM) Glucose Lvl [70-99 mg/dL] 91 mg/dL 87 mg/dL 90 mg/dL (12/25/18 3:34 AM) (12/24/18 3:38 AM) (12/23/18 3:31 AM) Hct [36.0-48.0 %] 30.3 % 32.0 % 32.2 % *LOW* *LOW* *LOW* (12/25/18 3:34 AM) (12/24/18 3:38 AM) (12/23/18 3:31 AM) Hgb [12.0-16.0 g/dL] 10.2 g/dL 10.7 g/dL 10.6 g/dL *LOW* *LOW* *LOW* (12/25/18 3:34 AM) (12/24/18 3:38 AM) (12/23/18 3:31 AM) INR [0.85-1.17] 1.65 1.93 2.18 *HI* *HI* *HI* (12/25/18 3:34 AM) (12/24/18 3:38 AM) (12/23/18 3:31 AM) Potassium Lvl [3.5-5.1 3.4 mEq/L 3.5 mEq/L 3.5 mEq/L mEq/L] *LOW* (12/24/18 3:38 AM) (12/23/18 3:31 AM) (12/25/18 3:34 AM) Lymphocytes [20.0-40.0 %] 29.9 % 31.8 % 32.1 % (12/25/18 3:34 AM) (12/24/18 3:38 AM) (12/23/18 3:31 AM) MCH [27.0-31.0 pg] 30.1 pg 30.1 pg 29.7 pg (12/25/18 3:34 AM) (12/24/18 3:38 AM) (12/23/18 3:31 AM) MCHC [32.0-36.0 g/dL] 33.6 g/dL 33.5 g/dL 32.8 g/dL (12/25/18 3:34 AM) (12/24/18 3:38 AM) (12/23/18 3:31 AM) MCV [80.0-98.0 fL] 89.5 fL 89.8 fL 90.7 fL (12/25/18 3:34 AM) (12/24/18 3:38 AM) (12/23/18 3:31 AM) Magnesium Lvl [1.8-2.4 2.1 mg/dL 2.0 mg/dL 1.9 mg/dL mg/dL] (12/25/18 3:34 AM) (12/24/18 3:38 AM) (12/23/18 3:31 AM) Monocytes [2.0-12.0 %] 9.6 % 10.0 % 11.8 % (12/25/18 3:34 AM) (12/24/18 3:38 AM) (12/23/18 3:31 AM) MPV [7.4-10.4 fL] 9.8 fL 10.2 fL 9.8 fL (12/25/18 3:34 AM) (12/24/18 3:38 AM) (12/23/18 3:31 AM) Sodium Lvl [135-145 mEq/L] 138 mEq/L 139 mEq/L 141 mEq/L (12/25/18 3:34 AM) (12/24/18 3:38 AM) (12/23/18 3:31 AM) Platelet [133-450 K/CMM] 146 K/CMM 154 K/CMM 156 K/CMM (12/25/18 3:34 AM) (12/24/18 3:38 AM) (12/23/18 3:31 AM) Segs [45.0-75.0 %] 55.2 % 54.3 % 51.7 % (12/25/18 3:34 AM) (12/24/18 3:38 AM) (12/23/18 3:31 AM) Total Protein [6.4-8.4 6.3 g/dL 7.2 g/dL g/dL] *LOW* (12/21/18 7:50 PM) (12/22/18 6:42 AM) PT [12.0-14.7 seconds] 19.2 seconds 21.6 seconds 23.8 seconds *HI* *HI* *HI* (12/25/18 3:34 AM) (12/24/18 3:38 AM) (12/23/18 3:31 AM) PTT [22.9-35.8 seconds] 47.8 seconds 45.1 seconds *HI* *HI* (12/22/18 6:42 AM) (12/21/18 10:50 PM) RBC [4.20-5.40 M/CMM] 3.39 M/CMM 3.56 M/CMM 3.55 M/CMM *LOW* *LOW* *LOW* (12/25/18 3:34 AM) (12/24/18 3:38 AM) (12/23/18 3:31 AM) RDW [11.5-14.5 %] 15.1 % 14.9 % 15.0 % *HI* *HI* *HI* (12/25/18 3:34 AM) (12/24/18 3:38 AM) (12/23/18 3:31 AM) Bili Total [0.2-1.3 mg/dL] 0.6 mg/dL 0.6 mg/dL (12/22/18 6:42 AM) (12/21/18 7:50 PM) Troponin-I [0.00-0.40 0.02 ng/mL <0.02 ng/mL <0.02 ng/mL ng/mL] (12/22/18 6:42 AM) (12/21/18 10:50 PM) (12/21/18 7:50 PM) WBC [3.7-10.4 K/CMM] 5.6 K/CMM 5.7 K/CMM 5.8 K/CMM (12/25/18 3:34 AM) (12/24/18 3:38 AM) (12/23/18 3:31 AM) 1Result Comment: The eGFR is calculated using the CKD-EPI formula. In most young , healthy individualsthe eGFR will be >90 mL/min/1.73m2. The eGFR declines with age. An eGFR of 60-89 may be normal insome populations, particularly the elderly, for whom the CKD-EPI formula has not been extensively validated. Use of the eGFR is not recommended in the following populations: Individuals with unstable creatinine concentrations, including patients and those with serious co-morbid conditions. Patients with extremes in muscle mass or diet. The data above are obtained from the National [employer] Education [employer] ( [employer]) which additionally recommends that when the eGFR is used in patients with extremes of body mass index for purposesof drug dosing, the eGFR should be multiplied by the estimated BMI.2Result Comment: The eGFR is calculated using the CKD-EPI formula. In most young, healthy individualsthe eGFR will be >90 mL/min/1.73m2. The eGFR declines with age. An eGFR of 60-89 may be normal insome populations, particularly the elderly, for whom the CKD-EPI formula has not been extensively validated. Use of the eGFR is not recommended in the following populations: Individuals with unstable creatinine concentrations, including patients and those with serious co-morbid conditions. Patients with extremes in muscle mass or diet. The data above are obtained from the [employer] ( [employer]) which additionally recommends that when the eGFR is used in patients with extremes of body mass index for purposesof drug dosing, the eGFR should be multiplied by the estimated BMI.3Result Comment: The eGFR is calculated using the CKD-EPI formula. In most young, healthy individualsthe eGFR will be >90 mL/min/1.73m2. The eGFR declines with age. An eGFR of 60-89 may be normal insome populations, particularly the elderly, for whom the CKD-EPI formula has not been extensively validated. Use of the eGFR is not recommended in the following populations: Individuals with unstable creatinine concentrations, including patients and those with serious co-morbid conditions. Patients with extremes in muscle mass or diet. The data above are obtained from the [employer] Education Program ( [employer]) which additionally recommends that when the eGFR is used in patients with extremes of body mass index for purposesof drug dosing, the eGFR should be multiplied by the estimated BMI. Immunizations Given and Recorded Vaccine Date Status Refusal Reason pneumococcal 23-valent vaccine 06/02/15 Given pneumococcal 23-valent vaccine 06/07/13 Given Procedures Procedure Date Related Diagnosis Body Site Status Cataract surgery Completed Social History Social History Type Response Smoking Status Never smoker; Type: Cigarettes; Exposure to Tobacco Smoke None ; Cigarette Smoking Last 365 Days Unable to obtain; Reg Smoking Cessation Counseling No entered on: 12/21/18 Assessment and Plan Extracted from: Title: Cardiology Progress Note Author: Pop Barrera MD Date: 12/25/18 Impression [...] d/c home from a CV standpoint Extracted from: Title: Cardiology Consult Note Author: Pop Barrera MD [...] restriction Thank you. Cardiology will follow. Extracted from: Title: History and Physical Author: Gordy Chavez Date: 1.Acute dyspnea(R06.00) Likely related to #2, #3. [...]
--- OUTSIDE RECORDS SUMMARY | 2019-02-20 16:34 | XMS REPORT | Summary of Care ---
:1945 Author Organization [facility] Address [address] [place], [place] [address]- Encounter HQ Encntr_alias(FIN) [id number] Date(s): 10/31/18 - 10/31/18 [facility] [address] [place] [address]- [phone] Discharge Disposition: ED Registered In Error Attending Physician: Dima Reyna MD Vital Signs No data available for this section Problem List Condition Effective Dates Status Health Status Informant Acute pneumococcal Resolved bronchitis(Confirmed) Atrial fibrillation(Confirmed) Resolved CATARACT(Confirmed)1 Resolved Falls(Confirmed) Active MRSA(Confirmed)2, 3, 4 05/29/15 Active NSTEMI - Non-ST segment elevation Active ID(Confirmed) Pemphigus vulgaris(Confirmed) Active Septicemia(Confirmed) Active Takotsubo cardiomyopathy(Confirmed) Active 1bilateral fnv298/5/15 left elbow epahnhio520/10/13 MRSA [id number] added by Discern Expert. Allergies, Adverse Reactions, Alerts Substance Reaction Severity Status NKDA Active Medications No data available for this section Results No data available for this section Immunizations Given and Recorded Vaccine Date Status Refusal Reason pneumococcal 23-valent vaccine 06/02/15 Given pneumococcal 23-valent vaccine 06/07/13 Given Procedures Procedure Date Related Diagnosis Body Site Status Cataract surgery Completed Social History Social History Type Response Smoking Status Current every day smoker; Exposure to Tobacco Smoke None; Cigarette Smoking Last 365 Days No; Reg Smoking Cessation Counseling No entered on: 10/21/18 Assessment and Plan No data available for this section
--- OUTSIDE RECORDS SUMMARY | 2019-02-20 16:34 | XMS REPORT ---
:1945 Author Organization [facility] Address [address] [place] [address] Dr. Malik[address] [place] [id number] Care Team Providers Name Role Phone Unavailable Unavailable Unavailable Problems This patient has no known problems. Allergies, Adverse Reactions, Alerts This patient has no known allergies or adverse reactions. Medications This patient has no known medications. Encounters Start End Encounter Admission Attending Care Care Encounter Date/Time Date/Time Type Type Clinicians Facility Department ID 2018-12-22 2018-12-21 Inpatient E [facility] [id number] 10:12:00 21:09:00 2018-10-20 2018-10-20 Outpatient E [facility] [id number] 22:17:00 22:17:00
--- OUTSIDE RECORDS SUMMARY | 2019-02-20 16:34 | XMS REPORT | Summary of Care ---
:1945 Author Organization [facility] [address] [address]- Encounter HQ Encntr_alias(FIN) [id number] Date(s): 05/23/15 - 05/23/15 [facility] [address] [address]- [phone] Discharge Disposition: Home Attending Physician: Jayesh Jimenes MD Vital Signs No data available for this section Problem List Condition Effective Dates Status Health Status Informant Acute pneumococcal Resolved bronchitis(Confirmed) Atrial fibrillation(Confirmed) Resolved CATARACT(Confirmed)1 Resolved Falls(Confirmed) Active Fracture(Confirmed) Active Hernia(Confirmed) Resolved MRSA(Confirmed)2, 3 Active NSTEMI - Non-ST segment elevation Active KS(Confirmed) Pemphigus vulgaris(Confirmed) Active Septicemia(Confirmed) Active Takotsubo cardiomyopathy(Confirmed) Active 1bilateral [id number]/03/12 MRSA [id number] added by Discern Expert. Allergies, Adverse Reactions, Alerts Substance Reaction Severity Status NKDA Active Medications No data available for this section Results No data available for this section Immunizations Vaccine Date Refusal Reason pneumococcal 23-valent vaccine 06/07/13 Procedures Procedure Date Related Diagnosis Body Site Cataract surgery Social History No data available for this section Assessment and Plan No data available for this section
--- OUTSIDE RECORDS SUMMARY | 2019-02-20 16:34 | XMS REPORT | Summary of Care ---
:1945 Author Organization [facility] Address [id number] [place] [id number] Encounter HQ Orlando_saulo(FIN) [id number] Date(s): 10/20/18 - 10/22/18 [facility] [address] [place] [address]- Discharge Disposition: Home or Self Care Attending Physician: Roger Brady MD Admitting Physician: Roger Brady MD Vital Signs Most recent to oldest 1 2 3 [Reference Range]: Height 165.1 cm 165.1 cm (10/21/18 1:10 AM) (10/20/18 6:46 PM) Current Weight 59.148 kg 61.392 kg (10/22/18 5:45 AM) (10/21/18 4:08 AM) Temperature Oral [96.4-99.1 98.3 DegF 97.6 DegF 98.4 DegF DegF] (10/22/18 4:14 PM) (10/22/18 11:46 AM) (10/22/18 7:14 AM) Blood Pressure [90-140/60-90 138/52 mmHg 122/67 mmHg 137/62 mmHg mmHg] (10/22/18 4:14 PM) (10/22/18 11:46 AM) (10/22/18 7:14 AM) Respiratory Rate [14-20 16 BRMIN 16 BRMIN 16 BRMIN BRMIN] (10/22/18 7:14 AM) (10/22/18 3:41 AM) (10/21/18 11:51 PM) Peripheral Pulse Rate [60-100 70 bpm 63 bpm 61 bpm bpm] (10/22/18 4:14 PM) (10/22/18 11:46 AM) (10/22/18 7:14 AM) Weight 62.273 kg 65.455 kg (10/21/18 1:10 AM) (10/20/18 6:46 PM) Body Mass Index 22.85 m2 24.01 m2 (10/21/18 1:10 AM) (10/20/18 6:46 PM) Problem List Condition Effective Dates Status Health Status Informant Acute pneumococcal Resolved bronchitis(Confirmed) Atrial fibrillation(Confirmed) Resolved CATARACT(Confirmed)1 Resolved Falls(Confirmed) Active MRSA(Confirmed)2, 3, 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 Allergies, Adverse Reactions, Alerts Substance Reaction Severity Status NKDA Active Medications alendronate 70 mg oral tablet 70 mg=1 tab, PO, Q7D, with 6 to 8 ounces plain water, at least 30 minutes before first food, beverage, or medication of the day, # 12 tab, 3 Refill(s) Start Date: 10/20/18 Status: Orderedaspirin 325 mg tablet 325 mg, 1 tab, Route: PO, Drug form: TAB, ONCE, Dosing Weight 65.455, kg, Priority: STAT, Start date: 10/20/18 21:26:00 CDT, Stop date: 10/20/18 21:26:00 CDT Notes: Take with food. Start Date: 10/20/18 Stop Date: 10/20/18 Status: Completedaspirin 81 mg tablet, chewable 81 mg=1 tab, PO, Bedtime, # 30 tab, 3 Refill(s) Start Date: 10/22/18 Stop Date: 02/19/19 Status: Orderedaspirin 81 mg tablet, chewable 81 mg, 1 tab, Route: PO, Drug form: CHEWTAB, Bedtime, Dosing Weight 65.455, kg, Start date: 199:00:00 CDT, Duration: 30 day, Stop date: 11/19/18 21:00:00 CDT Notes: Take with food. Start Date: 10/21/18 Stop Date: 10/22/18 Status: Discontinuedazithromycin + Sodium Chloride 0.9% IV 250 mL 500 mg, Route: IVPB, ONCE, Dosing Weight 65.455, kg, Priority: STAT, Start date : 10/20/18 22:13:00 CDT, Stop date: 10/20/18 22:13:00 CDT, ABX Indication: Pneumonia Notes: (Same As: Zithromax IV) Start Date: 10/20/18 Stop Date: 10/20/18 Status: Completedbaclofen 10 mg oral tablet 10 mg=1 tab, PO, BID, PRN Muscle Spasms, 0 Refill(s) Start Date: 10/20/18 Status: Orderedcalcium gluconate + Sodium Chloride 0.9% IV 100 mL 2 gm, 20 mL, Route: IVPB, PRN, Dosing Weight 65.455, kg, PRN Abnormal Lab Result , For NON-ICU Patients Only., Start date: 10/20/18 23:07:00 CDT, Duration: 30 day, Stop date: 11/19/18 23:06:00 CDT Notes: WASTE: F/P - Sink; E - Municipal Trash Bin Start Date: 10/20/18 Stop Date: 10/22/18 Status: Discontinuedcalcium gluconate + Sodium Chloride 0.9% IV 150 mL 3 gm, 30 mL, Route: IVPB, PRN, Dosing Weight 65.455, kg, PRN Abnormal Lab Result , For NON-ICU Patients Only., Start date: 10/20/18 23:07:00 CDT, Duration: 30 day, Stop date: 11/19/18 23:06:00 CDT Notes: WASTE: F/P - Sink; E - Municipal Trash Bin Start Date: 10/20/18 Stop Date: 10/22/18 Status: Discontinuedcarvedilol 25 mg oral tablet 25 mg=1 tab, PO, BID, # 180 tab, 0 Refill(s) Start Date: 10/20/18 Stop Date: 10/22/18 Status: DiscontinuedcefTRIAXone + sterile water 10 mL 1 gm, Route: IV, ONCE, Dosing Weight 65.455, kg, Priority: STAT, Start date: 22:12:00 CDT, Stop date: 10/20/18 22:12:00 CDT, ABX Indication: Pneumonia Notes: (Same As: Rocephin).Use with 100 mL NS and infuse over 30 min MEDICATION WASTE Product Size: 1000 mgProduct Wasted: ___ mg Start Date: 10/20/18 Stop Date: 10/20/18 Status: CompletedCoumadin 4 mg oral tablet 4 mg=1 tab, PO, Daily, # 30 tab, 0 Refill(s) Start Date: 10/20/18 Status: Orderedcyanocobalamin 1,000 microgram, IM, takes IM at doctor's office once a month, 0 Refill(s) Start Date: 10/21/18 Status: OrderedDextrose 50% Syringe 12.5 gm, 25 mL, Route: IVP, Drug Form: INJ, Dosing Weight 65.455, kg, PRN, PRN Blood Glucose Results, Start date: 10/21/18 0:36:00 CDT, Duration: 30 day, Stop date: 11/20/18 0:35:00 CDT Start Date: 10/21/18 Stop Date: 10/22/18 Status: DiscontinuedDextrose 50% Syringe 25 gm, 50 mL, Route: IVP, Drug Form: INJ, Dosing Weight 65.455, kg, PRN, PRN Blood Glucose Results, Start date: 10/21/18 0:36:00 CDT, Duration: 30 day, Stop date: 11/20/18 0:35:00 CDT Start Date: 10/21/18 Stop Date: 10/22/18 Status: Discontinuedfurosemide 40 mg, 4 mL, Route: IVP, Drug form: INJ, Q12H, Dosing Weight 65.455, kg, Start date: 10/21/18 9:00:00 CDT, Duration: 30 day, Stop date: 11/19/18 21:00:00 CDT Notes: (Same as: Lasix) MEDICATION WASTE Product Size: 40 mgProduct Wasted: ___ mg Start Date: 10/21/18 Stop Date: 10/21/18 Status: Discontinuedglucagon 1 mg, Route: IM, Drug form: PDR/INJ, PRN, Dosing Weight 65.455, kg, PRN Blood Glucose Results, Startdate: 10/21/18 0:36:00 CDT, Duration: 30 day, Stop date: 11/20/18 0:35:00 CDT Start Date: 10/21/18 Stop Date: 10/22/18 Status: Discontinuedhydrochlorothiazide-lisinopril 12.5 mg-20 mg oral tablet 1 tab, PO, BID, 0 Refill(s) Start Date: 10/20/18 Status: Orderedinsulin glargine 15 unit, 0.15 mL, Route: SUB-Q, Drug form: SOLN, Daily, Dosing Weight 65.455, kg , Start date: 10/21/18 9:00:00 CDT, Duration: 30 day, Stop date: 11/19/18 9:00: 00 CDT Notes: (Same as: Lantus)Do not hold insulin without contacting prescriberWASTE: F/P - Black; E - Municipal Trash Bin "single patient use only" Start Date: 10/21/18 Stop Date: 10/22/18 Status: Discontinuedinsulin lispro 6 unit, 0.06 mL, Route: SUB-Q, Drug form: SOLN, TID-Before Meals, Dosing Weight 65.455, kg, PRN Blood Glucose Results, Start date: 10/21/18 0:36:00 CDT, Duration: 30 day, Stop date: 11/20/18 0:35:00 CDT Notes: (Same as: Humalog ) Roll in palms of hands gently; Do not shake ` vigorously. "Single PatientUse Only " WASTE: F/P - Black; E - Municipal Trash Bin Stable for 28 days at room temperature.Expires in days from Date Start Date: 10/21/18 Stop Date: 10/22/18 Status: Discontinuedinsulin lispro 8 unit, 0.08 mL, Route: SUB-Q, Drug form: SOLN, TID-Before Meals, Dosing Weight 65.455, kg, PRN Blood Glucose Results, Start date: 10/21/18 0:36:00 CDT, Duration: 30 day, Stop date: 11/20/18 0:35:00 CDT Notes: (Same as: Humalog ) Roll in palms of hands gently; Do not shake ` vigorously. "Single PatientUse Only " WASTE: F/P - Black; E - Municipal Trash Bin Stable for 28 days at room temperature.Expires in days from Date Start Date: 10/21/18 Stop Date: 10/22/18 Status: Discontinuedinsulin lispro 1 unit, 0.01 mL, Route: SUB-Q, Drug form: SOLN, Bedtime, Dosing Weight 65.455, kg, PRN Blood GlucoseResults, Start date: 10/21/18 0:36:00 CDT, Duration: 30 day , Stop date: 11/20/18 0:35:00 CDT Notes: (Same as: Humalog ) Roll in palms of hands gently; Do not shake ` vigorously. "Single PatientUse Only " WASTE: F/P - Black; E - Municipal Trash Bin Stable for 28 days at room temperature.Expires in days from Date Start Date: 10/21/18 Stop Date: 10/22/18 Status: Discontinuedinsulin lispro 4 unit, 0.04 mL, Route: SUB-Q, Drug form: SOLN, TID-Before Meals, Dosing Weight 65.455, kg, PRN Blood Glucose Results, Start date: 10/21/18 0:36:00 CDT, Duration: 30 day, Stop date: 11/20/18 0:35:00 CDT Notes: (Same as: Humalog ) Roll in palms of hands gently; Do not shake ` vigorously. "Single PatientUse Only " WASTE: F/P - Black; E - Municipal Trash Bin Stable for 28 days at room temperature.Expires in days from Date Start Date: 10/21/18 Stop Date: 10/22/18 Status: Discontinuedinsulin lispro 10 unit, 0.1 mL, Route: SUB-Q, Drug form: SOLN, TID-Before Meals, Dosing Weight 65.455, kg, PRN Blood Glucose Results, Start date: 10/21/18 0:36:00 CDT, Duration: 30 day, Stop date: 11/20/18 0:35:00 CDT Notes: (Same as: Humalog ) Roll in palms of hands gently; Do not shake ` vigorously. "Single PatientUse Only " WASTE: F/P - Black; E - Municipal Trash Bin Stable for 28 days at room temperature.Expires in days from Date Start Date: 10/21/18 Stop Date: 10/22/18 Status: Discontinuedinsulin lispro 2 unit, 0.02 mL, Route: SUB-Q, Drug form: SOLN, TID-Before Meals, Dosing Weight 65.455, kg, PRN Blood Glucose Results, Start date: 10/21/18 0:36:00 CDT, Duration: 30 day, Stop date: 11/20/18 0:35:00 CDT Notes: (Same as: Humalog ) Roll in palms of hands gently; Do not shake ` vigorously. "Single PatientUse Only " WASTE: F/P - Black; E - Municipal Trash Bin Stable for 28 days at room temperature.Expires in days from Date Start Date: 10/21/18 Stop Date: 10/22/18 Status: Discontinuedinsulin lispro 4 unit, 0.04 mL, Route: SUB-Q, Drug form: SOLN, Bedtime, Dosing Weight 65.455, kg, PRN Blood GlucoseResults, Start date: 10/21/18 0:36:00 CDT, Duration: 30 day , Stop date: 11/20/18 0:35:00 CDT Notes: (Same as: Humalog ) Roll in palms of hands gently; Do not shake ` vigorously. "Single PatientUse Only " WASTE: F/P - Black; E - Municipal Trash Bin Stable for 28 days at room temperature.Expires in days from Date Start Date: 10/21/18 Stop Date: 10/22/18 Status: Discontinuedinsulin lispro 3 unit, 0.03 mL, Route: SUB-Q, Drug form: SOLN, Bedtime, Dosing Weight 65.455, kg, PRN Blood GlucoseResults, Start date: 10/21/18 0:36:00 CDT, Duration: 30 day , Stop date: 11/20/18 0:35:00 CDT Notes: (Same as: Humalog ) Roll in palms of hands gently; Do not shake ` vigorously. "Single PatientUse Only " WASTE: F/P - Black; E - Municipal Trash Bin Stable for 28 days at room temperature.Expires in days from Date Start Date: 10/21/18 Stop Date: 10/22/18 Status: Discontinuedinsulin lispro 2 unit, 0.02 mL, Route: SUB-Q, Drug form: SOLN, Bedtime, Dosing Weight 65.455, kg, PRN Blood GlucoseResults, Start date: 10/21/18 0:36:00 CDT, Duration: 30 day , Stop date: 11/20/18 0:35:00 CDT Notes: (Same as: Humalog ) Roll in palms of hands gently; Do not shake ` vigorously. "Single PatientUse Only " WASTE: F/P - Black; E - Municipal Trash Bin Stable for 28 days at room temperature.Expires in days from Date Start Date: 10/21/18 Stop Date: 10/22/18 Status: DiscontinuedLasix 20 mg, 2 mL, Route: IVP, Drug form: INJ, ONCE, Dosing Weight 65.455, kg, Start date: 10/20/18 22:59:00 CDT, Stop date: 10/20/18 22:59:00 CDT Notes: (Same as: Lasix) MEDICATION WASTE Product Size: 40 mgProduct Wasted: ___ mg Start Date: 10/20/18 Stop Date: 10/21/18 Status: CompletedLasix 20 mg oral tablet 20 mg=1 tab, PO, Daily, # 30 tab, 0 Refill(s) Start Date: 10/22/18 Status: Orderedmagnesium oxide 800 mg, 2 tab, Route: PO, Drug form: TAB, PRN, Dosing Weight 65.455, kg, PRN Abnormal Lab Result, For NON-ICU Patients Only., Start date: 10/20/18 23:07:00 CDT, Duration: 30 day, Stop date: 11/19/18 23:06:00 CDT Notes: (Same as: Mag-Ox 400)Magnesium oxide [id number] elemental magnesiumDose= ____mg magnesium oxide (___mg elemental magnesium) Start Date: 10/20/18 Stop Date: 10/22/18 Status: Discontinuedmagnesium sulfate 2 gm, 50 mL, Route: IVPB, Drug form: INJ, PRN, Dosing Weight 65.455, kg, PRN Abnormal Lab Result, For NON-ICU Patients Only., Start date: 10/20/18 23:07:00 CDT, Duration: 30 day, Stop date: 11/19/18 23:06:00 CDT Notes: WASTE: F/P - Sink; E - Municipal Trash Bin Start Date: 10/20/18 Stop Date: 10/22/18 Status: Discontinuedmagnesium sulfate 1 gm, 100 mL, Route: IVPB, Drug form: INJ, PRN, Dosing Weight 65.455, kg, PRN Abnormal Lab Result, For NON-ICU Patients Only., Start date: 10/20/18 23:07:00 CDT, Duration: 30 day, Stop date: 11/19/18 23:06:00 CDT Notes: WASTE: F/P - Sink; E - Municipal Trash Bin Start Date: 10/20/18 Stop Date: 10/22/18 Status: Discontinuedmetoprolol tartrate 50 mg, 1 tab, Route: PO, Drug form: TAB, Q12H, Dosing Weight 62.273, kg, Start date: 10/21/18 21:00:00 CDT, Duration: 30 day, Stop date: 11/20/18 9:00:00 CDT Notes: (Same as: Lopressor) Start Date: 10/21/18 Stop Date: 10/22/18 Status: Discontinuedmetoprolol tartrate 50 mg oral tablet 50 mg=1 tab, PO, Q12H, # 60 tab, 0 Refill(s) Start Date: 10/22/18 Stop Date: 11/21/18 Status: Orderedmirtazapine 7.5 mg oral tablet 7.5 mg=1 tab, PO, Bedtime, # 30 tab, 0 Refill(s) Start Date: 10/20/18 Stop Date: 10/22/18 Status: Discontinuedomeprazole 40 mg oral delayed release capsule 40 mg=1 cap, PO, Daily, # 30 cap, 0 Refill(s) Start Date: 10/20/18 Status: Orderedondansetron 4 mg, 2 mL, Route: IVP, Drug form: INJ, Q8H, Dosing Weight 65.455, kg, PRN Nausea & Vomiting, Start date: 10/20/18 23:07:00 CDT, Duration: 30 day, Stop date: 11/19/18 23:06:00 CDT Notes: (Same as: Tori) MEDICATION WASTE Product Size: 4 mgProduct Wasted: ___ mg Start Date: 10/20/18 Stop Date: 10/22/18 Status: Discontinuedpantoprazole 40 mg, 1 tab, Route: PO, Drug form: ECTAB, Before Dinner, Dosing Weight 65.455, kg, Start date: 10/21/18 16:30:00 CDT, Duration: 30 day, Stop date: 11/19/18 16: 30:00 CDT Notes: Tablet should not be chewed or crushed.(Same as: Protonix) Start Date: 10/21/18 Stop Date: 10/22/18 Status: Discontinuedpotassium chloride 10 mEq, 100 mL, Route: IVPB, Drug form: INJ, PRN, Dosing Weight 65.455, kg, PRN Abnormal Lab Result,For NON-ICU Patients Only, Start date: 10/20/18 23:07:00 CDT , Duration: 30 day, Stop date: 11/19/18 23:06:00 CDT Notes: Infuse at a rate of 10 mEq/hr.(Same as: KCL) Start Date: 10/20/18 Stop Date: 10/22/18 Status: Discontinuedpotassium chloride 20 mEq, 15 mL, Route: NJ, Drug form: LIQ, PRN, Dosing Weight 65.455, kg, PRN Abnormal Lab Result, For NON-ICU Patients Only, Start date: 10/20/18 23:07:00 CDT, Duration: 30 day, Stop date: 11/19/18 23:06:00 CDT Notes: (Same as: Potassium Chloride) Start Date: 10/20/18 Stop Date: 10/22/18 Status: Discontinuedpotassium chloride 20 mEq, 1 tab, Route: PO, Drug form: ERTAB, PRN, Dosing Weight 65.455, kg, PRN Abnormal Lab Result, For NON-ICU Patients Only, Start date: 10/20/18 23:07:00 CDT, Duration: 30 day, Stop date: 11/19/18 23:06:00 CDT Notes: (Same as: K-Dur 20)"Do Not Crush" Give with food and full glass of waterFor patients unable to swallow tablet, dissolve in one half glass of water. Allow about 2 minutes for the tablets to disintegrate. Stir before giving to prepare slurry and administer.Please exclude Patients with feedingtube less than 14 Somali (Dobhoff, J-tube etc) and pediatric and patients. Start Date: 10/20/18 Stop Date: 10/22/18 Status: Discontinuedpotassium chloride 20 mEq oral tablet, extended release 40 mEq, 2 tab, Route: PO, Drug form: ERTAB, ONCE, Dosing Weight 62.273, kg, Start date: 10/22/18 16:14:00 CDT, Stop date: 10/22/18 16:14:00 CDT Notes: (Same as: K-Dur 20)"Do Not Crush" Give with food and full glass of waterFor patients unable to swallow tablet, dissolve in one half glass of water. Allow about 2 minutes for the tablets to disintegrate. Stir before giving to prepare slurry and administer.Please exclude Patients with feedingtube less than 14 Somali (Dobhoff, J-tube etc) and pediatric and patients. Start Date: 10/22/18 Stop Date: 10/22/18 Status: Completedpotassium phosphate + Sodium Chloride 0.9% IV 250 mL 30 mmol, 10 mL, Route: IVPB, PRN, Dosing Weight 65.455, kg, PRN Abnormal Lab Result, For NON-ICU Patients Only., Start date: 10/20/18 23:07:00 CDT, Duration : 30 day, Stop date: 11/19/18 23:06:00 CDT Notes: (Same as: K Phosphate.)Do not infuse phosphorous concurrently in the same line as TPN or IVF that contains calcium. For double lumen central lines, phosphorous may be infused in a separate lumenfrom TPN. 1 mMol phoshate has 1.47 mEq potassium Infuse over 4 hours Start Date: 10/20/18 Stop Date: 10/22/18 Status: Discontinuedpotassium phosphate + Sodium Chloride 0.9% IV 250 mL 15 mmol, 5 mL, Route: IVPB, PRN, Dosing Weight 65.455, kg, PRN Abnormal Lab Result, For NON-ICU Patients Only., Start date: 10/20/18 23:07:00 CDT, Duration : 30 day, Stop date: 11/19/18 23:06:00 CDT Notes: (Same as: K Phosphate.)Do not infuse phosphorous concurrently in the same line as TPN or IVF that contains calcium. For double lumen central lines, phosphorous may be infused in a separate lumenfrom TPN. 1 mMol phoshate has 1.47 mEq potassium Infuse over 4 hours Start Date: 10/20/18 Stop Date: 10/22/18 Status: Discontinuedpotassium phosphate-sodium phosphate 250 mg-280 mg-160 mg oral powder for reconstitution 2 pkt, Route: PO, Drug Form: PDR/REC, Dosing Weight 65.455, kg, PRN, PRN Abnormal Lab Result, For NON-ICU Patients Only, Start date: 10/20/18 23:07:00 CDT, Duration: 30 day, Stop date: 11/19/18 23:06:00 CDT Notes: (Same as: Phos-NaK) Each 1.5 gm pkt has 250mg phosphorous. Mix w/2.5oz water and stir. Start Date: 10/20/18 Stop Date: 10/22/18 Status: DiscontinuedSaline Flush 0.9% 10 ml, Route: IVP, Drug Form: INJ, Dosing Weight 65.455, kg, PRN, PRN Line Flush , Start date: 10/20/18 23:07:00 CDT, Duration: 30 day, Stop date: 11/19/18 23:06 :00 CDT Notes: (Same as: BD Posiflush) Start Date: 10/20/18 Stop Date: 10/22/18 Status: DiscontinuedSaline Flush 0.9% 10 ml, Route: IVP, Drug Form: INJ, Dosing Weight 65.455, kg, Q12H, Start date: 10/21/18 9:00:00 CDT,Duration: 30 day, Stop date: 11/19/18 21:00:00 CDT Notes: (Same as: BD Posiflush) Start Date: 10/21/18 Stop Date: 10/22/18 Status: Discontinuedsimvastatin 80 mg oral tablet 80 mg=1 tab, PO, Bedtime, 0 Refill(s) Start Date: 10/20/18 Status: Orderedsodium phosphate + Dextrose 5% in Water IV 250 mL 15 mmol, 5 mL, Route: IVPB, PRN, Dosing Weight 65.455, kg, PRN Abnormal Lab Result, For NON-ICU Patients Only., Start date: 10/20/18 23:07:00 CDT, Duration : 30 day, Stop date: 11/19/18 23:06:00 CDT Notes: Infuse over 4 hour. Do not infuse phosphorous concurrently in the same line as TPN or IVF that contains calcium. For double lumen central lines, phosphorous may be infused in a separate lumen from TPN. Start Date: 10/20/18 Stop Date: 10/22/18 Status: Discontinuedsodium phosphate + Dextrose 5% in Water IV 250 mL 30 mmol, 10 mL, Route: IVPB, PRN, Dosing Weight 65.455, kg, PRN Abnormal Lab Result, For NON-ICU Patients Only., Start date: 10/20/18 23:07:00 CDT, Duration : 30 day, Stop date: 11/19/18 23:06:00 CDT Notes: Infuse over 4 hour. Do not infuse phosphorous concurrently in the same line as TPN or IVF that contains calcium. For double lumen central lines, phosphorous may be infused in a separate lumen from TPN. Start Date: 10/20/18 Stop Date: 10/22/18 Status: Discontinuedwarfarin 4 mg, 2 tab, Route: PO, Drug form: TAB, Q5PM, Dosing Weight 62.273, kg, Priority : NOW, Start date: 10/22/18 17:47:00 CDT, Duration: 1 doses or times, Stop date : 10/22/18 17:47:00 CDT Notes: Nurse to ensure documentation of patient education per anticoagulation policy.Avoid large intake of vitamin-K containing foods diet.(Same As: Coumadin) WASTE: F/P - P Waste Black; E - P Waste Black Start Date: 10/22/18 Stop Date: 10/22/18 Status: Completed Results ELECTROLYTES Most recent to oldest 1 2 3 [Reference Range]: Sodium Lvl [135-145 mEq/L] 141 mEq/L 144 mEq/L 141 mEq/L (10/22/18 6:01 AM) (10/21/18 4:49 AM) (10/20/18 6:53 PM) Potassium Lvl [3.5-5.1 3.4 mEq/L 3.4 mEq/L 4.1 mEq/L mEq/L] *LOW* *LOW* (10/20/18 6:53 PM) (10/22/18 6:01 AM) (10/21/18 4:49 AM) Chloride Lvl [95-109 mEq/L] 105 mEq/L 108 mEq/L 106 mEq/L (10/22/18 6:01 AM) (10/21/18 4:49 AM) (10/20/18 6:53 PM) CO2 [24-32 mEq/L] 27 mEq/L 28 mEq/L 25 mEq/L (10/22/18 6:01 AM) (10/21/18 4:49 AM) (10/20/18 6:53 PM) AGAP [10.0-20.0 mEq/L] 12.4 mEq/L 11.4 mEq/L 14.1 mEq/L (10/22/18 6:01 AM) (10/21/18 4:49 AM) (10/20/18 6:53 PM) CHEM PANEL Most recent to oldest 1 2 3 [Reference Range]: Creatinine Lvl [0.50-1.40 1.02 mg/dL 0.95 mg/dL 1.02 mg/dL mg/dL] (10/22/18 6:01 AM) (10/21/18 4:49 AM) (10/20/18 6:53 PM) eGFR 55 mL/min/1.73m2 1 61 mL/min/1.73m2 2 55 mL/min/1.73m2 3 *NA* *NA* *NA* (10/22/18 6:01 AM) (10/21/18 4:49 AM) (10/20/18 6:53 PM) BUN [7-22 mg/dL] 25 mg/dL 25 mg/dL 28 mg/dL *HI* *HI* *HI* (10/22/18 6:01 AM) (10/21/18 4:49 AM) (10/20/18 6:53 PM) B/C Ratio [6-25] 25 26 27 (10/22/18 6:01 AM) *HI* *HI* (10/21/18 4:49 AM) (10/20/18 6:53 PM) Glucose Lvl [70-99 mg/dL] 81 mg/dL 79 mg/dL 87 mg/dL (10/22/18 6:01 AM) (10/21/18 4:49 AM) (10/20/18 6:53 PM) Total Protein [6.4-8.4 g/dL] 6.0 g/dL 6.2 g/dL 7.0 g/dL *LOW* *LOW* (10/20/18 6:53 PM) (10/22/18 6:01 AM) (10/21/18 4:49 AM) Albumin Lvl [3.5-5.0 g/dL] 2.7 g/dL 2.8 g/dL 3.1 g/dL *LOW* *LOW* *LOW* (10/22/18 6:01 AM) (10/21/18 4:49 AM) (10/20/18 6:53 PM) Globulin [2.7-4.2 g/dL] 3.3 g/dL 3.4 g/dL 3.9 g/dL (10/22/18 6:01 AM) (10/21/18 4:49 AM) (10/20/18 6:53 PM) A/G Ratio [0.7-1.6] 0.8 0.8 0.8 (10/22/18 6:01 AM) (10/21/18 4:49 AM) (10/20/18 6:53 PM) Calcium Lvl [8.5-10.5 mg/dL] 8.2 mg/dL 8.4 mg/dL 8.4 mg/dL *LOW* *LOW* *LOW* (10/22/18 6:01 AM) (10/21/18 4:49 AM) (3/29/19 6:53 PM) ALT [0-65 unit/L] 15 unit/L 16 unit/L 18 unit/L (10/22/18 6:01 AM) (10/21/18 4:49 AM) (10/20/18 6:53 PM) AST [0-37 unit/L] 21 unit/L 23 unit/L 27 unit/L (10/22/18 6:01 AM) (10/21/18 4:49 AM) (10/20/18 6:53 PM) Alk Phos [39-136 unit/L] 51 unit/L 49 unit/L 58 unit/L (10/22/18 6:01 AM) (10/21/18 4:49 AM) (10/20/18 6:53 PM) Bili Total [0.2-1.3 mg/dL] 0.7 mg/dL 0.6 mg/dL 0.6 mg/dL (10/22/18 6:01 AM) (10/21/18 4:49 AM) (10/20/18 6:53 PM) 1Result Comment: The eGFR is calculated using [...] eGFR should be multiplied by the estimated BMI.CARDIAC ENZYMES Most recent to oldest 1 2 3 [Reference Range]: Total CK [12-191 unit/L] 60 unit/L (10/20/18 6:53 PM) Troponin-I [0.00-0.40 ng/mL] 0.03 ng/mL 0.02 ng/mL <0.02 ng/mL (10/21/18 4:49 AM) (10/21/18 12:08 AM) (10/20/18 6:53 PM) BNP [<=100 pg/mL] 906 pg/mL *HI* (10/20/18 9:36 PM) URINE AND STOOL Most recent to oldest [Reference Range]: 1 2 3 UA Turbidity [Clear] Clear (10/20/18 8:29 PM) UA Color Ltyellow *NA* (10/20/18 8:29 PM) UA pH [5.0-8.0] 6.0 (10/20/18 8:29 PM) UA Spec Grav [<=1.030] 1.008 (10/20/18 8:29 PM) UA Glucose [Negative] Negative *NA* (10/20/18 8:29 PM) UA Blood [Negative] Negative (10/20/18 8:29 PM) UA Ketones [Negative] Negative *NA* (10/20/18 8:29 PM) UA Protein [Negative] Negative (10/20/18 8:29 PM) UA Urobilinogen [0.1-1.0 mg/dL] <=1.0 mg/dL *NA* (10/20/18 8:29 PM) UA Bili [Negative] Negative *NA* (10/20/18 8:29 PM) UA Leuk Est [Negative] Trace *ABN* (10/20/18 8:29 PM) UA Nitrite [Negative] Negative (10/20/18 8:29 PM) UA WBC [0-5 /HPF] 1 /HPF (10/20/18 8:29 PM) UA RBC [0-2 /HPF] <1 /HPF (10/20/18 8:29 PM) UA Sq Epi [Few] None Seen (10/20/18 8:29 PM) HEMATOLOGY Most recent to oldest 1 2 3 [Reference Range]: WBC [3.7-10.4 K/CMM] 6.8 K/CMM 5.9 K/CMM 5.8 K/CMM (10/22/18 6:01 AM) (10/21/18 4:49 AM) (10/20/18 6:53 PM) RBC [4.20-5.40 M/CMM] 3.21 M/CMM 3.21 M/CMM 3.27 M/CMM *LOW* *LOW* *LOW* (10/22/18 6:01 AM) (10/21/18 4:49 AM) (10/20/18 6:53 PM) Hgb [12.0-16.0 g/dL] 9.8 g/dL 10.0 g/dL 10.0 g/dL *LOW* *LOW* *LOW* (10/22/18 6:01 AM) (10/21/18 4:49 AM) (10/20/18 6:53 PM) Hct [36.0-48.0 %] 30.0 % 30.1 % 31.0 % *LOW* *LOW* *LOW* (10/22/18 6:01 AM) (10/21/18 4:49 AM) (10/20/18 6:53 PM) MCV [80.0-98.0 fL] 93.6 fL 93.7 fL 94.6 fL (10/22/18 6:01 AM) (10/21/18 4:49 AM) (10/20/18 6:53 PM) MCH [27.0-31.0 pg] 30.7 pg 31.1 pg 30.4 pg (10/22/18 6:01 AM) *HI* (10/20/18 6:53 PM) (10/21/18 4:49 AM) MCHC [32.0-36.0 g/dL] 32.8 g/dL 33.1 g/dL 32.2 g/dL (10/22/18 6:01 AM) (10/21/18 4:49 AM) (10/20/18 6:53 PM) RDW [11.5-14.5 %] 13.7 % 13.6 % 13.8 % (10/22/18 6:01 AM) (10/21/18 4:49 AM) (10/20/18 6:53 PM) MPV [7.4-10.4 fL] 9.7 fL 9.8 fL 9.8 fL (10/22/18 6:01 AM) (10/21/18 4:49 AM) (10/20/18 6:53 PM) Platelet [133-450 K/CMM] 148 K/CMM 145 K/CMM 158 K/CMM (10/22/18 6:01 AM) (10/21/18 4:49 AM) (10/20/18 6:53 PM) Segs [45.0-75.0 %] 50.5 % 50.9 % 70.2 % (10/22/18 6:01 AM) (10/21/18 4:49 AM) (10/20/18 6:53 PM) Lymphocytes [20.0-40.0 %] 33.2 % 37.5 % 21.0 % (10/22/18 6:01 AM) (10/21/18 4:49 AM) (10/20/18 6:53 PM) Monocytes [2.0-12.0 %] 12.1 % 8.4 % 7.9 % *HI* (10/21/18 4:49 AM) (10/20/18 6:53 PM) (10/22/18 6:01 AM) Eosinophils [0.0-4.0 %] 3.6 % 2.5 % 0.7 % (10/22/18 6:01 AM) (10/21/18 4:49 AM) (10/20/18 6:53 PM) Basophils [0.0-1.0 %] 0.6 % 0.7 % 0.2 % (10/22/18 6:01 AM) (10/21/18 4:49 AM) (10/20/18 6:53 PM) Neutrophils # [1.5-8.1 3.4 K/CMM 3.0 K/CMM 4.0 K/CMM K/CMM] (10/22/18 6:01 AM) (10/21/18 4:49 AM) (10/20/18 6:53 PM) Lymphocytes # [1.0-5.5 2.2 K/CMM 2.2 K/CMM 1.2 K/CMM K/CMM] (10/22/18 6:01 AM) (10/21/18 4:49 AM) (10/20/18 6:53 PM) Monocytes # [0.0-0.8 K/CMM] 0.8 K/CMM 0.5 K/CMM 0.5 K/CMM (10/22/18 6:01 AM) (10/21/18 4:49 AM) (10/20/18 6:53 PM) Eosinophils # [0.0-0.5 0.2 K/CMM 0.1 K/CMM K/CMM] (10/22/18 6:01 AM) (10/21/18 4:49 AM) PT [12.0-14.7 seconds] 19.2 seconds *HI* (10/22/18 4:37 PM) INR [0.85-1.17] 1.65 *HI* (10/22/18 4:37 PM) Immunizations Given and Recorded Vaccine Date Status [...] No entered on: 10/21/18 Assessment and Plan Extracted from: Title: Progress Note * Author: Del Verma DO Date: 10/22/18 Impression and Plan The patient was seen and examined by me with the resident/RIB CUTTER/PA and I agree with the History/Exam documented. IMPRESSION: 1. Acute on chronic diastolic heart failure. 2. LV outflow obstruction with intracavitary gradient. 3. Moderate mitral regurgitation. 4. Mild mitral stenosis. 5. Hypertension. The patient's loud murmur likely comes from her mitral regurgitation and moderate LV outflow tract obstruction. Would decrease the diuretics to ensure an adequate left ventricular filling. Encourage P O hydration. Change coreg to metoprolol to relieve obstruction. No evidence of acute coronary syndrome. Please try to avoid afterload reduction. If needed for BP control can use ARB. She can be d/c from a CV standpoint with outpatient follow up. Extracted from: Title: History and Physical Author: Nohemy Tinsley MD [...] out ACS. Trend troponins. Lasix 40 mg iv twice daily. Strict I's and O's,echocardiogram. Daily weights. IL fluid restriction IVF. Monitor blood sugar and sodium. Diabetes with sliding scale insulinas well as Lantus Hypertension resume home meds. Continue Coumadin Ambulation 1-2 midnights
--- OUTSIDE RECORDS SUMMARY | 2019-02-20 16:34 | XMS REPORT | Summary of Care ---
:1945 Author Organization [facility] Address [address] [place] [id number] Encounter HQ Encntr_saulo(FIN) [id number] Date(s): 05/28/15 - 06/03/15 [facility] [address] [place] [address] Professional Services provided by [facility] [place] [address]- Discharge Disposition: Home Attending Physician: Maryam Parada MD Admitting Physician: Maryam Parada MD Vital Signs Most recent to oldest 1 2 3 [Reference Range]: Height 165.1 cm 165.1 cm 165.1 cm (05/30/15 7:54 PM) (05/28/15 6:24 PM) (05/28/15 9:55 AM) Temperature Oral [96.4-99.1 98.2 DegF 98.3 DegF 97.9 DegF DegF] (06/03/15 12:49 PM) (06/03/15 9:12 AM) (06/03/15 4:43 AM) Blood Pressure 138/65 mmHg 175/79 mmHg 141/78 mmHg [90-140/60-90 mmHg] (06/03/15 12:49 PM) *HI* *HI* (06/03/15 9:12 AM) (06/03/15 4:43 AM) Respiratory Rate [14-20 18 BRMIN 18 BRMIN 18 BRMIN BRMIN] (06/03/15 12:49 PM) (06/03/15 9:12 AM) (06/03/15 4:43 AM) Peripheral Pulse Rate 56 bpm 59 bpm 59 bpm 1 [60-100 bpm] *LOW* *LOW* *LOW* (06/03/15 12:49 PM) (06/03/15 9:12 AM) (06/03/15 4:43 AM) Weight 65.455 kg 65.455 kg 65.455 kg (05/30/15 7:54 PM) (05/28/15 6:24 PM) (05/28/15 9:55 AM) Body Mass Index 24.01 m2 24.01 m2 (05/28/15 6:24 PM) (05/28/15 9:55 AM) 1Result Comment: 59 Problem List Condition Effective Dates Status Health Status Informant Acute pneumococcal Resolved bronchitis(Confirmed) Atrial fibrillation(Confirmed) Resolved CATARACT(Confirmed)1 Resolved Falls(Confirmed) Active Fracture(Confirmed) Active Hernia(Confirmed) Resolved MRSA(Confirmed)2, 3, 4 05/29/15 Active NSTEMI - Non-ST segment elevation Active AK(Confirmed) Pemphigus vulgaris(Confirmed) Active Septicemia(Confirmed) Active Takotsubo cardiomyopathy(Confirmed) Active 1bilateral qbv552/5/15 left elbow [id number]/10/13 MRSA [id number] added by Discern Expert. Allergies, Adverse Reactions, Alerts Substance Reaction Severity Status NKDA Active Medications acetaminophen 650 mg, 2 tab, Route: PO, Drug form: TAB, Q4H, Dosing Weight 65.455, kg, PRN Pain 1-3/Temp > 100.4 F, Start date: 05/28/15 16:12:00, Duration: 30 day, Stop date: 06/27/15 16:11:00 Notes: Do not exceed 4 gm/day. (Same as: Tylenol) Start Date: 05/28/15 Stop Date: 06/03/15 Status: Discontinuedacetaminophen-hydrocodone 325 mg-10 mg oral tablet 1 tab, Route: PO, Drug Form: TAB, Dosing Weight 65.455, kg, Q4H, PRN Pain Score 7-10, Start date: 05/28/15 16:12:00, Duration: 30 day, Stop date: 06/27/15 16:11 :00 Start Date: 05/28/15 Stop Date: 06/03/15 Status: Discontinuedacetaminophen-hydrocodone 325 mg-5 mg oral tablet 1 tab, Route: PO, Drug Form: TAB, Dosing Weight 65.455, kg, ONCE, STAT, Start date: 05/28/15 12:34:00, Stop date: 05/28/15 12:34:00 Start Date: 05/28/15 Stop Date: 05/28/15 Status: CompletedamLODIPine 5 mg, 1 tab, Route: PO, Drug form: TAB, Bedtime, Dosing Weight 65.455, kg, Priority: NOW, Start date: 05/30/15 18:27:00, Duration: 30 day, Stop date: 06/28 21:00:00 Notes: (Same as: Audra) Start Date: 05/30/15 Stop Date: 06/03/15 Status: DiscontinuedamLODIPine 5 mg oral tablet 5 mg=1 tab, PO, Bedtime, # 30 tab, 0 Refill(s) Start Date: 06/03/15 Status: OrderedAncef 1 gm, Route: IVPB, Drug form: PDR/INJ, Q8H, Dosing Weight 65.455, kg, Start date : 05/29/15 21:00:00,Duration: 30 day, Stop date: 06/28/15 13:00:00 Notes: (Same As: Danita Ferreira) MEDICATION WASTE Product Size: 1000 mgProduct Wasted: ___ mg Start Date: 05/29/15 Stop Date: 06/03/15 Status: Discontinuedcefepime 1 gm, Route: IVPB, Drug form: INJ, [id number], Dosing Weight 65.455, kg, (CrCl >/= 50 ml/min), Start date: 05/31/15 8:00:00, Duration: 30 day, Stop date: 06/30/15 0:00:00 Notes: (Same As: Tashia) MEDICATION WASTE Product Size: 1000 mgProduct Wasted: ___ mg Start Date: 05/31/15 Stop Date: 06/01/15 Status: Discontinueddocusate 100 mg, 1 cap, Route: PO, Drug form: CAP, BID, Dosing Weight 65.455, kg, Start date: 05/28/15 17:00:00, Duration: 30 day, Stop date: 06/27/15 9:00:00 Start Date: 05/28/15 Stop Date: 06/03/15 Status: Discontinuedenoxaparin 40 mg, 0.4 mL, Route: SUB-Q, Drug form: INJ, [id number], Dosing Weight 65.455, kg , Start date: 05/28/15 17:00:00, Duration: 30 day, Stop date: 06/26/15 17:00:00 Notes: (Same as: Lovenox) Start Date: 05/28/15 Stop Date: 06/03/15 Status: Discontinuedflumazenil 0.2 mg, 2 mL, Route: IVP, Drug form: INJ, PRN, Dosing Weight 65.455, kg, PRN Benzodiazepine Reversal, Initial dose, Start date: 05/29/15 20:37:00, Duration: 30 day, Stop date: 06/28/15 20:36:00 Notes: (Same as: Romazicon) Start Date: 05/29/15 Stop Date: 05/29/15 Status: DiscontinuedhydrALAZINE 10 mg, 0.5 mL, Route: IVP, Drug form: INJ, Q20Min, Dosing Weight 65.455, kg, PRN Elevated BP, Start date: 05/29/15 20:37:00, Duration: 2 doses or times, Stop date: 05/30/15 0:00:00 Notes: (Same as: Apresoline)Push over 5 minutes Start Date: 05/29/15 Stop Date: 05/29/15 Status: Completedhydrocortisone + Sodium Chloride 0.9% IV 50 mL 50 mg, 1 mL, Route: IVPB, Drug form: PDR/INJ, Q6H, Dosing Weight 65.455, kg, Start date: 05/29/15 18:00:00, Duration: 1 day, Stop date: 05/30/15 18:00:00 Notes: (Same as: Solu-CORTEF) Start Date: 05/29/15 Stop Date: 05/30/15 Status: Discontinuedlabetalol 10 mg, 2 mL, Route: IVP, Drug form: INJ, Q5Min, Dosing Weight 65.455, kg, PRN Elevated BP, Start date: 05/29/15 20:37:00, Duration: 5 doses or times, Stop date: 05/30/15 0:00:00 Start Date: 05/29/15 Stop Date: 05/29/15 Status: Discontinuedlidocaine 1% 50 mg, 5 mL, Route: INTRADERM, Drug Form: INJ, Dosing Weight 65.455, kg, ONCALL , Start date: 06/01/15 8:00:00, Duration: 30 day, Stop date: 07/01/15 7:59:00 Notes: (Same as: Xylocaine) Start Date: 06/01/15 Stop Date: 06/03/15 Status: Discontinuedlidocaine 1% 50 mg, 5 mL, Route: MISC, Drug Form: INJ, Dosing Weight 65.455, kg, ONCALL, Start date: 06/02/15 11:00:00, Duration: 30 day, Stop date: 07/02/15 10:59:00 Notes: (Same as: Xylocaine) Start Date: 06/02/15 Stop Date: 06/03/15 Status: Discontinuedmelatonin 3 mg, 1 tab, Route: PO, Drug form: TAB, Bedtime, Dosing Weight 65.455, kg, PRN Insomnia, Start date:05/28/15 16:12:00, Duration: 30 day, Stop date: 06/27/15 16 :11:00 Notes: (Same as: Melatonin) Start Date: 05/28/15 Stop Date: 06/03/15 Status: Discontinuedmetoprolol tartrate 50 mg, 1 tab, Route: PO, Drug form: TAB, Q12H, Dosing Weight 65.455, kg, Start date: 05/28/15 21:00:00, Duration: 30 day, Stop date: 06/27/15 9:00:00 Notes: (Same as: Lopressor) Start Date: 05/28/15 Stop Date: 06/01/15 Status: Discontinuedmetoprolol tartrate 25 mg, 1 tab, Route: PO, Drug form: TAB, Q12H, Dosing Weight 65.455, kg, Start date: 06/02/15 9:00:00, Duration: 30 day, Stop date: 07/01/15 21:00:00 Notes: (Same as: Lopressor) Start Date: 06/02/15 Stop Date: 06/03/15 Status: Discontinuedmorphine Sulfate 2 mg, 1 mL, Route: IVP, Drug form: INJ, Q5Min, Dosing Weight 65.455, kg, PRN Pain Score 4-6, Start date: 05/29/15 20:37:00, Duration: 5 doses or times, Stop date: 05/30/15 0:00:00 Notes: (Same as:MORPhine Sulfate) Start Date: 05/29/15 Stop Date: 05/29/15 Status: Discontinuednaloxone 0.04 mg, 0.1 mL, Route: IVP, Drug form: INJ, Q2MIN, Dosing Weight 65.455, kg, PRN Narcotic Reversal,Start date: 05/29/15 20:37:00, Duration: 8 doses or times , Stop date: 05/30/15 0:00:00 Notes: Same as Narcan Start Date: 05/29/15 Stop Date: 05/29/15 Status: DiscontinuedNS 1,000 mL 1,000 mL, Rate: 100 ml/hr, Infuse over: 10 hr, Route: IV, Dosing Weight 65.455 kg, Total Volume: 1,000, Start date: 05/29/15 0:15:00, Duration: 30 day, Stop date: 06/28/15 0:14:00 Start Date: 05/29/15 Stop Date: 05/29/15 Status: Discontinuedondansetron 4 mg, 2 mL, Route: IVP, Drug form: INJ, ONCE, Dosing Weight 65.455, kg, PRN Nausea & Vomiting, Start date: 05/29/15 20:37:00 Notes: (Same as: Tori) MEDICATION WASTE Product Size: 4 mgProduct Wasted: ___ mg Start Date: 05/29/15 Stop Date: 05/29/15 Status: Discontinuedondansetron 4 mg, 2 mL, Route: IVP, Drug form: INJ, Q8H, Dosing Weight 65.455, kg, PRN Nausea & Vomiting, Start date: 05/28/15 16:12:00, Duration: 30 day, Stop date: 06/27/15 16:11:00 Notes: (Same as: Tori) MEDICATION WASTE Product Size: 4 mgProduct Wasted: ___ mg Start Date: 05/28/15 Stop Date: 06/03/15 Status: Discontinuedpneumococcal 23-valent vaccine 0.5 mL, Route: IM, Drug Form: INJ, Daily, Start date: 05/29/15 9:00:00, Duration : 1 doses or times, Stop date: 05/29/15 9:00:00 Notes: (Same as: Pneumovax 23) Refrigerate Start Date: 05/29/15 Stop Date: 05/29/15 Status: CompletedPneumovax 23 0.5 mL, Route: IM, Drug Form: INJ, Daily, Start date: 06/02/15 9:00:00, Duration : 1 doses or times, Stop date: 06/02/15 9:00:00 Notes: (Same as: Pneumovax 23) Refrigerate Start Date: 06/02/15 Stop Date: 06/02/15 Status: CompletedpredniSONE 10 mg, 1 tab, Route: PO, Drug form: TAB, Daily, Dosing Weight 65.455, kg, Start date: 05/29/15 9:00:00, Duration: 30 day, Stop date: 06/27/15 9:00:00 Start Date: 05/29/15 Stop Date: 06/03/15 Status: DiscontinuedSaline Flush 0.9% 10 mL, Route: IVP, Drug Form: INJ, Dosing Weight 65.455, kg, Q8H, Start date: 8:00:00, Duration: 30 day, Stop date: 07/01/15 0:00:00 Notes: (Same as: BD Posiflush) Start Date: 06/01/15 Stop Date: 06/03/15 Status: DiscontinuedSaline Flush 0.9% 10 mL, Route: IVP, Drug Form: INJ, Dosing Weight 65.455, kg, PRN, PRN Line Flush , Start date: 06/01/15 7:48:00, Duration: 30 day, Stop date: 07/01/15 7:47:00 Notes: (Same as: BD Posiflush) Start Date: 06/01/15 Stop Date: 06/03/15 Status: DiscontinuedSaline Flush 0.9% 10 mL, Route: IVP, Drug Form: INJ, Dosing Weight 65.455, kg, PRN, PRN Line Flush , Start date: 06/02/15 11:00:00, Duration: 30 day, Stop date: 07/02/15 10:59:00 Notes: (Same as: BD Posiflush) Start Date: 06/02/15 Stop Date: 06/03/15 Status: DiscontinuedSaline Flush 0.9% 10 mL, Route: IVP, Drug Form: INJ, Dosing Weight 65.455, kg, Q8H, Start date: 16:00:00, Duration: 30 day, Stop date: 07/02/15 8:00:00 Notes: (Same as: BD Posiflush) Start Date: 06/02/15 Stop Date: 06/03/15 Status: DiscontinuedSenna Smooth 8.6 mg, 1 tab, Route: PO, Drug form: TAB, Q12H, Dosing Weight 65.455, kg, PRN Constipation, Start date: 05/28/15 16:12:00, Duration: 30 day, Stop date: 16:11:00 Notes: (Same as: Senokot) Start Date: 05/28/15 Stop Date: 06/03/15 Status: Discontinuedsodium chloride bacteriostatic 0.9% injectable solution 5 mL, Route: INTRADERM, Drug Form: INJ, Dosing Weight 65.455, kg, ONCALL, Start date: 06/01/15 8:00:00, Duration: 30 day, Stop date: 07/01/15 7:59:00 Notes: not for pediatric use. Start Date: 06/01/15 Stop Date: 06/03/15 Status: Discontinuedtramadol 50 mg, 1 tab, Route: PO, Drug form: TAB, Q6H, Dosing Weight 65.455, kg, PRN Pain Score 1-3, Start date: 05/28/15 16:12:00, Duration: 30 day, Stop date: 11/06 16:11:00 Start Date: 05/28/15 Stop Date: 06/03/15 Status: Discontinuedtramadol 50 mg oral tablet 50 mg=1 tab, PO, Q6H, PRN Pain Score 1-3, # 40 tab, 0 Refill(s) Start Date: 06/03/15 Stop Date: 06/17/15 Status: Orderedvancomycin 1 gm, Route: IVPB, Drug form: INJ, [id number], Dosing Weight 65.455, kg, Start date : 05/30/15 19:00:00,Duration: 30 day, Stop date: 06/29/15 7:00:00 Notes: TIME CRITICAL MEDICATION(Same As: Vancocin)Infusion rate< 1000 mg: infuse over 1 [id number] - 1500 mg: infuse over 1.5 [id number] - 2000 mg: infuse over 2 hours> 2001 mg: infuse over 2.5 hours MEDICATION WASTE Product Size: 1000 mgProduct Wasted: ___ mg Start Date: 05/30/15 Stop Date: 05/30/15 Status: Discontinuedvancomycin + Sodium Chloride 0.9% IV 100 mL 500 mg, Route: IV, [id number], Dosing Weight 65.455, kg, Start date: 06/02/15 9:00: 00, Duration: 30 day, Stop date: 07/01/15 23:00:00 Notes: TIME CRITICAL MEDICATION(Same As: Vancocin) Start Date: 06/02/15 Stop Date: 06/03/15 Status: Discontinuedvancomycin + Sodium Chloride 0.9% IV 250 mL 750 mg, Route: IVPB, [id number], Start date: 05/31/15 8:00:00, Duration: 30 day, Stop date: 06/29/15 20:00:00 Notes: TIME CRITICAL MEDICATION(Same As: Vancocin)Infusion rate< 1000 mg: infuse over 1 [id number] - 1500 mg: infuse over 1.5 [id number] - 2000 mg: infuse over 2 hours> 2001 mg: infuse over 2.5 hours MEDICATION WASTE Product Size: 1000 mgProduct Wasted: ___ mg Start Date: 05/31/15 Stop Date: 06/02/15 Status: DiscontinuedVitamin K1 2.5 mg, 0.25 mL, Route: SUB-Q, Drug form: INJ, ONCE, Dosing Weight 65.455, kg, Start date: 05/29/15 8:55:00, Duration: 1 doses or times, Stop date: 05/29/15 8: 55:00 Notes: (Same as: Aqua-Mephyton, Vitamin K) MEDICATION WASTE Product Size : 10 mgProduct Wasted: ___ mg Start Date: 05/29/15 Stop Date: 05/29/15 Status: Completed Results BLOOD BANK RESULTS Most recent to oldest [Reference Range]: 1 2 3 ABO/Rh A POS *Unknown* (05/29/15 1:38 AM) Antibody Scrn Negative (05/29/15 1:38 AM) ELECTROLYTES Most recent to oldest 1 2 3 [Reference Range]: Sodium Lvl [135-145 mEq/L] 144 mEq/L 147 mEq/L 139 mEq/L (05/31/15 1:00 AM) *HI* (05/28/15 1:20 PM) (05/29/15 1:38 AM) Potassium Lvl [3.5-5.1 3.6 mEq/L 3.3 mEq/L 5.0 mEq/L 1 mEq/L] (05/31/15 1:00 AM) *LOW* (05/28/15 1:20 PM) (05/29/15 1:38 AM) Chloride Lvl [95-109 mEq/L] 112 mEq/L 115 mEq/L 108 mEq/L *HI* *HI* (05/28/15 1:20 PM) (05/31/15 1:00 AM) (05/29/15 1:38 AM) CO2 [24-32 mEq/L] 21 mEq/L 22 mEq/L 22 mEq/L *LOW* *LOW* *LOW* (05/31/15 1:00 AM) (05/29/15 1:38 AM) (05/28/15 1:20 PM) AGAP [10.0-20.0 mEq/L] 14.6 mEq/L 13.3 mEq/L 14.0 mEq/L (05/31/15 1:00 AM) (05/29/15 1:38 AM) (05/28/15 1:20 PM) 1Result Comment: moderate hemolysisCHEM PANEL Most recent to oldest 1 2 3 [Reference Range]: Creatinine Lvl [0.50-1.40 0.61 mg/dL 0.56 mg/dL 0.83 mg/dL mg/dL] (05/31/15 1:00 AM) (05/29/15 1:38 AM) (05/28/15 1:20 PM) eGFR 93 mL/min/1.73m2 1 96 mL/min/1.73m2 2 73 mL/min/1.73m2 3 *NA* *NA* *NA* (05/31/15 1:00 AM) (05/29/15 1:38 AM) (05/28/15 1:20 PM) BUN [7-22 mg/dL] 18 mg/dL 16 mg/dL 18 mg/dL (05/31/15 1:00 AM) (05/29/15 1:38 AM) (05/28/15 1:20 PM) B/C Ratio [6-25] 30 *HI* (05/31/15 1:00 AM) Glucose Lvl [70-99 mg/dL] 93 mg/dL 69 mg/dL 81 mg/dL (05/31/15 1:00 AM) *LOW* (05/28/15 1:20 PM) (05/29/15 1:38 AM) Total Protein [6.4-8.4 g/dL] 5.3 g/dL *LOW* (05/31/15 1:00 AM) Albumin Lvl [3.5-5.0 g/dL] 2.0 g/dL *LOW* (05/31/15 1:00 AM) Globulin [2.0-4.0 g/dL] 3.3 g/dL (05/31/15 1:00 AM) A/G Ratio [0.7-1.6] 0.6 *LOW* (05/31/15 1:00 AM) Calcium Lvl [8.5-10.5 mg/dL] 7.6 mg/dL 7.1 mg/dL 8.9 mg/dL *LOW* *LOW* (05/28/15 1:20 PM) (05/31/15 1:00 AM) (05/29/15 1:38 AM) ALT [0-65 unit/L] 7 unit/L (05/31/15 1:00 AM) AST [0-37 unit/L] 12 unit/L (05/31/15 1:00 AM) Alk Phos [39-136 unit/L] 58 unit/L (05/31/15 1:00 AM) Bili Total [0.2-1.3 mg/dL] 0.5 mg/dL (05/31/15 1:00 AM) 1Result Comment: The eGFR is calculated [...] young, healthy individualsthe eGFR will be >90 mL/ min/1.73m2. The eGFR declines with age. An eGFR [...] young, healthy individualsthe eGFR will be >90 mL/ min/1.73m2. The eGFR declines with age. An eGFR [...] estimated BMI.CARDIAC ENZYMES Most recent to oldest [Reference Range]: 1 2 3 Total CK [12-191 unit/L] 55 unit/L 49 unit/L (05/30/15 2:05 AM) (05/29/15 8:51 PM) Troponin-T [0.000-0.100 ng/mL] <0.010 ng/mL <0.010 ng/mL (05/30/15 2:05 AM) (05/29/15 8:51 PM) Troponin-I [0.00-0.40 ng/mL] 0.02 ng/mL <0.02 ng/mL (05/30/15 2:05 AM) (05/29/15 8:51 PM) THYROID PANEL Most recent to oldest [Reference Range]: 1 2 3 TSH [0.360-3.740 uIU/mL] 1.640 uIU/mL (05/29/15 1:38 AM) TOXICOLOGY Most recent to oldest [Reference Range]: 1 2 3 Vanco Tr TND 1930 *NA* (06/01/15 7:36 PM) Vanco Tr 20.5 ug/ml *NA* (06/01/15 7:36 PM) IMMUNOLOGY Most recent to oldest [Reference Range]: 1 2 3 CRP [<=2.9 mg/L] 20.1 mg/L 22.1 mg/L 1 *HI* *HI* (05/29/15 1:38 AM) (05/28/15 1:20 PM) 1Result Comment: Specimen Moderately Hemolyzed.HEMATOLOGY Most recent to oldest 1 2 3 [Reference Range]: WBC [3.7-10.4 K/CMM] 9.0 K/CMM 9.2 K/CMM (05/31/15 1:00 AM) (05/28/15 12:35 PM) RBC [4.20-5.40 M/CMM] 3.23 M/CMM 3.91 M/CMM *LOW* *LOW* (05/31/15 1:00 AM) (05/28/15 12:35 PM) Hgb [12.0-16.0 g/dL] 9.8 g/dL 11.7 g/dL *LOW* *LOW* (05/31/15 1:00 AM) (05/28/15 12:35 PM) Hct [36.0-48.0 %] 30.0 % 36.3 % *LOW* (05/28/15 12:35 PM) (05/31/15 1:00 AM) MCV [80.0-98.0 fL] 92.8 fL 93.0 fL (05/31/15 1:00 AM) (05/28/15 12:35 PM) MCH [27.0-31.0 pg] 30.3 pg 30.0 pg (05/31/15 1:00 AM) (05/28/15 12:35 PM) MCHC [32.0-36.0 g/dL] 32.6 g/dL 32.2 g/dL (05/31/15 1:00 AM) (05/28/15 12:35 PM) RDW [11.5-14.5 %] 14.8 % 14.8 % *HI* *HI* (05/31/15 1:00 AM) (05/28/15 12:35 PM) Platelet [133-450 K/CMM] 202 K/CMM 151 K/CMM (05/31/15 1:00 AM) (05/28/15 12:35 PM) MPV [7.4-10.4 fL] 9.2 fL 9.6 fL (05/31/15 1:00 AM) (05/28/15 12:35 PM) Segs [45.0-75.0 %] 62.9 % 59.5 % (05/31/15 1:00 AM) (05/28/15 12:35 PM) Lymphocytes [20.0-40.0 %] 28.2 % 31.2 % (05/31/15 1:00 AM) (05/28/15 12:35 PM) Monocytes [2.0-12.0 %] 8.3 % 6.9 % (05/31/15 1:00 AM) (05/28/15 12:35 PM) Eosinophils [0.0-4.0 %] 0.4 % 1.1 % (05/31/15 1:00 AM) (05/28/15 12:35 PM) Basophils [0.0-1.0 %] 0.2 % 1.3 % (05/31/15 1:00 AM) *HI* (05/28/15 12:35 PM) Segs-Bands # [1.5-8.1 5.7 K/CMM 5.5 K/CMM K/CMM] (05/31/15 1:00 AM) (05/28/15 12:35 PM) Lymphocytes # [1.0-5.5 2.5 K/CMM 2.9 K/CMM K/CMM] (05/31/15 1:00 AM) (05/28/15 12:35 PM) Monocytes # [0.0-0.8 0.7 K/CMM 0.6 K/CMM K/CMM] (05/31/15 1:00 AM) (05/28/15 12:35 PM) Eosinophils # [0.0-0.5 0.1 K/CMM K/CMM] (05/28/15 12:35 PM) Basophils # [0.0-0.2 0.1 K/CMM K/CMM] (05/28/15 12:35 PM) RBC Morph Normal (05/28/15 12:35 PM) Plt Morph See Note 1 (05/28/15 12:35 PM) Sed Rate [0-20 mm/hr] 60 mm/hr 80 mm/hr *HI* *HI* (05/29/15 1:38 AM) (05/28/15 1:20 PM) PT [12.0-14.7 seconds] 15.8 seconds 18.6 seconds 16.6 seconds *HI* *HI* *HI* (06/02/15 3:09 AM) (05/29/15 1:38 AM) (05/28/15 2:38 PM) INR [0.85-1.17] 1.23 1.52 1.31 *HI* *HI* *HI* (06/02/15 3:09 AM) (05/29/15 1:38 AM) (05/28/15 2:38 PM) PTT [22.9-35.8 seconds] 36.5 seconds 42.2 seconds 38.3 seconds *HI* *HI* *HI* (06/02/15 3:09 AM) (05/29/15 1:38 AM) (05/28/15 2:38 PM) 1Result Comment: Due to occassional clumps, the actual count may be slightly higher. Immunizations Vaccine Date Refusal Reason pneumococcal 23-valent vaccine 06/02/15 pneumococcal 23-valent vaccine 06/07/13 Procedures Procedure Date Related Diagnosis Body Site Cataract surgery Social History Social History Type Response Smoking Status Current every day smoker; Type: Cigarettes; Exposure to Tobacco Smoke None; Cigarette Smoking Last 365 Days Unable to obtain; Reg Smoking Cessation Counseling No Assessment and Plan Extracted from: Title: ORTHO TRAUMA Author: Anastacia Bridges [employer]OB [employer]ACEMENT [employer]IST Date: 06/03/15 ORS TRAUMA Doing ok NAD [...] 9.0 K/CMM (05/31/15) Troponin-T: <0.010 ng/mL (05/30/15) LUE SILT R/M/U Intact R/M/U/AIN/PIN Fingers wwp with BCR [...] Dr. Jimenes on Jun 11, 2015. Call [phone] for appointment. 10. Plan for surgery: None per ORS. 11. Please call Ortho for any question or concerns. Extracted from: Title: Hospitalist Progress Note Author: Maryam Parada MD [...] 40 mg, Route: SUB-Q, Drug form: INJ, [id number], Dosing Weight 65.455, kg, Start date: 05/28/15 [...] Lovenox Disposition Pending surgery and culture results [facility] Hospitalist service is primary. Page [phone] with concerns.
[2019-02-20 17:24] LABS: Absolute Lymphocytes (CBC) 1.6 K/uL (0.7-4.9); Basophils % 0.5 % (0-1.3); Lymphocytes % 25.7 % (15.3-44.8); MPV 9.3 fL (7.6-11.3); RBC Red Blood Cell Count 3.44 M/uL (3.86-4.86)
[2019-02-20] MEDS ORDERED: FENTANYL CITR 100 MCG/2 ML ONE (17:39)
--- NOTE | 2019-02-20 18:42 | EDPHYS ---
Physician Documentation [facility] Name: Tanika Villalobos Age: 73 yrs Sex: Female : 1945 Arrival Date: 02/20/2019 Time: 16:26 Bed 14 Private MD: ED Physician Link Aldrich HPI: 02/20 17:06 This 73 yrs old Female presents to ER via Ambulatory with complaints of Fall snw Injury. 17:06 Details of fall: The patient fell from a supine position, out of bed. Onset: The snw symptoms/episode began/occurred last night, on floor x 2 hours until Daughter awoke. Associated injuries: The patient sustained injury to the head, right clavicle and right shoulder, decreased range of motion, painful injury. Severity of symptoms: At their worst the symptoms were moderate, severe. The patient has experienced a previous episode. It is unknown whether or not the patient has recently seen a physician. No LOC, urinating normally, had recent blood draw . Historical: - Allergies: 16:34 No Known Allergies; hj - PMHx: 16:34 DVT; Hypertension; Hyperlipidemia; hj - PSHx: 16:34 None; hj - Immunization history:: Adult Immunizations unknown. - Social history:: Smoking status: Patient/guardian denies using tobacco. - Ebola Screening: : No symptoms or risks identified at this time. ROS: 17:04 Constitutional: Negative for fever, chills, and weight loss, Eyes: Negative for injury, snw pain, redness, and discharge, ENT: Negative for injury, pain, and discharge, Neck: Negative for injury, pain, and swelling, Cardiovascular: Negative for chest pain, palpitations, and edema, Respiratory: Negative for shortness of breath, cough, wheezing, and pleuritic chest pain, Abdomen/GI: Negative for abdominal pain, nausea, vomiting, diarrhea, and constipation, Back: Negative for injury and pain, : Negative for injury, bleeding, discharge, and swelling, Skin: Negative for injury, rash, and discoloration, Neuro: Negative for headache, weakness, numbness, tingling, and seizure. 17:04 MS/extremity: Positive for injury or acute deformity, of the right clavicle, right arm. Exam: 17:00 Constitutional: This is a well developed, well nourished patient who is awake, alert, snw and in no acute distress. Head/Face: Normocephalic, atraumatic. Eyes: Pupils equal round and reactive to light, extra-ocular motions intact. Lids and lashes normal. Conjunctiva and sclera are non-icteric and not injected. Cornea within normal limits. Periorbital areas with no swelling, redness, or edema. ENT: Nares patent. No nasal discharge, no septal abnormalities noted. Tympanic membranes are normal and external auditory canals are clear. Oropharynx with no redness, swelling, or masses, exudates, or evidence of obstruction, uvula midline. Mucous membranes moist. Neck: Trachea midline, no thyromegaly or masses palpated, and no cervical lymphadenopathy. Supple, full range of motion without nuchal rigidity, or vertebral point tenderness. No Meningismus. Chest/axilla: Normal chest wall appearance and motion. Nontender with no deformity. No lesions are appreciated. Cardiovascular: Regular rate and rhythm with a normal S1 and S2. No gallops, murmurs, or rubs. Normal PMI, no JVD. No pulse deficits. Respiratory: Lungs have equal breath sounds bilaterally, clear to auscultation and percussion. No rales, rhonchi or wheezes noted. No increased work of breathing, no retractions or nasal flaring. Abdomen/GI: Soft, non-tender, with normal bowel sounds. No distension or tympany. No guarding or rebound. No evidence of tenderness throughout. Back: No spinal tenderness. No costovertebral tenderness. Full range of motion. Skin: Warm, dry with normal turgor. Normal color with no rashes, no lesions, and no evidence of cellulitis. Neuro: Awake and alert, GCS 15, oriented to person, place, time, and situation. Cranial nerves II-XII grossly intact. Motor strength 5/5 in all extremities. Sensory grossly intact. Cerebellar exam normal. Normal gait. Psych: Awake, alert, with orientation to person, place and time. Behavior, mood, and affect are within normal limits. 17:00 Musculoskeletal/extremity: Extremities: grossly normal except: noted in the right clavicle, right humeral head, right frontal scalp: decreased ROM, pain, ROM: limited active range of motion due to pain, in the right arm, limited passive range of motion due to pain, Circulation is intact in all extremities. Sensation intact. Vital Signs: 16:35 BP 108 / 47; Pulse 79; Resp 18; Temp 97.8(TE); Pulse Ox 96% on R/A; Weight 56.7 kg; hj Height 5 ft. 0 in. (152.40 cm); 18:15 BP 133 / 51; Pulse 74; Resp 16 S; Pulse Ox 96% on R/A; jl7 16:35 Body Mass Index 24.41 (56.70 kg, 152.40 cm) MDM: 16:40 Patient medically screened. snw 18:30 Data reviewed: vital signs, nurses notes. Data interpreted: Pulse oximetry: on room air snw is 96 %. Interpretation: normal. Counseling: I had a detailed discussion with the patient and/or guardian regarding: the historical points, exam findings, and any diagnostic results supporting the discharge/admit diagnosis, the presence of at least one elevated blood pressure reading (>120/80) during this emergency department visit, lab results, radiology results, the need for outpatient follow up, for definitive care, to return to the emergency department if symptoms worsen or persist or if there are any questions or concerns that arise at home. Response to treatment: the patient's symptoms have markedly improved after treatment. Special discussion: Based on the patient's history, exam and DX evaluation, there is no indication for emergent intervention or inpatient TX. It is understood by the patient/guardian that if the SXs persist or worsen they need to return immediately for re-evaluation. Based on the history and exam findings, there is no indication for further emergent testing or inpatient evaluation. I discussed with the patient/guardian the need to see the primary care provider for further evaluation of the symptoms. 02/20 16:53 Order name: CBC with Diff; Complete Time: 17:26 snw 02/20 16:53 Order name: Chem 7; Complete Time: 17:48 snw 02/20 16:39 Order name: CT Traumagram (Head C Spine CAP wo con) snw 02/20 16:53 Order name: CPK; Complete Time: 17:48 snw 02/20 16:54 Order name: Sling: right arm - shoulder pain; Complete Time: 19:00 snw Administered Medications: 17:26 Drug: fentaNYL (PF) 25 mcg Route: IM; Site: left deltoid; jl7 17:55 Follow up: Response: No adverse reaction; Pain is decreased jl7 Disposition: 02/21 06:55 Co-signature as Attending Physician, Link Aldrich MD. rn Disposition: 02/20/19 18:42 Discharged to Home. Impression: Fall from bed, Fracture of right humeral head, Fracture of coracoid process (right), Fracture of clavicle, Pleural effusion, not elsewhere classified. - Condition is Stable. - Discharge Instructions: Clavicle Fracture, Fall Prevention in the Home, Humerus Fracture Treated With Immobilization, Pleural Effusion, How to Use a Sling. - Prescriptions for Tylenol- Codeine #3 300-30 mg Oral Tablet - take 1 tablet by ORAL route every 6 hours As needed; 15 tablet. - Medication Reconciliation Form, Thank You Letter, Antibiotic Education, Prescription Opioid Use form. - Follow up: Private Physician; When: 2 - 3 days; Reason: Recheck today's complaints, Continuance of care, Re-evaluation by your physician. Follow up: Emergency Department; When: As needed; Reason: Worsening of condition. Follow up: Dr. Kiel Mallory; When: 2 - 3 days; Reason: Recheck today's complaints, Continuance of care. Signatures: Dispatcher [employer] EDMS Dina Lynn, CHILD MONITOR-C CHILD MONITOR-Csnw Link Aldrich MD MD rn Joaquin, Henry, RN RN hj Leal, Jahala, RN RN jl7 Corrections: (The following items were deleted from the chart) 02/20 19:03 18:42 02/20/2019 18:42 Discharged to Home. Impression: Fall from bed; Fracture of right jl7 humeral head; Fracture of coracoid process (right); Fracture of clavicle; Pleural effusion, not elsewhere classified. Condition is Stable. Discharge Instructions: Fall Prevention in the Home, Humerus Fracture Treated With Immobilization, How to Use a Sling. Forms are Medication Reconciliation Form, Thank You Letter, Antibiotic Education, Prescription Opioid Use. Follow up: Private Physician; When: 2 - 3 days; Reason: Recheck today's complaints, Continuance of care, Re-evaluation by your physician. Follow up: Emergency Department; When: As needed; Reason: Worsening of condition. Follow up: Dr. Kiel Mallory; When: 2 - 3 days; Reason: Recheck today's complaints, Continuance of care. snw
--- NOTE | 2019-02-20 18:42 | ER ---
Nurse's Notes [facility] Name: Tanika Villalobos Age: 73 yrs Sex: Female : 1945 Arrival Date: 02/20/2019 Time: 16:26 Bed 14 Private MD: Diagnosis: Fall from bed;Fracture of right humeral head;Fracture of coracoid process (right);Fracture of clavicle;Pleural effusion, not elsewhere classified Presentation: 02/20 16:31 Presenting complaint: niece: "i fell last night off the bed on to the R side, hit her hj head, denies LOC, now she's complaining of R shoulder, R upper and R lower pain; denies headache, denies N/V; reports taking blood thinners. Transition of care: patient was not received from another setting of care. Onset of symptoms was February 20, 2019. Risk Assessment: Do you want to hurt yourself or someone else? Patient reports no desire to harm self or others. Initial Sepsis Screen: Does the patient meet any 2 criteria? No. Patient's initial sepsis screen is negative. Does the patient have a suspected source of infection? No. Patient's initial sepsis screen is negative. Care prior to arrival: None. 16:31 Method Of Arrival: Ambulatory 16:31 Acuity: DULCE 4 hj Historical: - Allergies: 16:34 No Known Allergies; hj - PMHx: 16:34 DVT; Hypertension; Hyperlipidemia; hj - PSHx: 16:34 None; hj - Immunization history:: Adult Immunizations unknown. - Social history:: Smoking status: Patient/guardian denies using tobacco. - Ebola Screening: : No symptoms or risks identified at this time. Screenin:00 Abuse screen: Denies threats or abuse. Denies injuries from another. Nutritional jl7 screening: No deficits noted. Tuberculosis screening: No symptoms or risk factors identified. Fall Risk None identified. Assessment: 17:15 General: Appears in no apparent distress. uncomfortable, Behavior is calm, cooperative, jl7 appropriate for age. Pain: Complains of pain in right clavicle Pain currently is 8 out of 10 on a pain scale. Pain began 1 day ago. Is continuous. Neuro: Level of Consciousness is awake, alert, obeys commands, Oriented to person, place, time, situation. Cardiovascular: Patient's skin is warm and dry. Respiratory: Airway is patent Respiratory effort is even, unlabored, Respiratory pattern is regular, symmetrical. GI: No signs and/or symptoms were reported involving the gastrointestinal system. : No signs and/or symptoms were reported regarding the genitourinary system. EENT: No signs and/or symptoms were reported regarding the EENT system. Derm: Skin is pink, warm \\T\\ dry. Musculoskeletal: Reports pain in anterior aspect of right shoulder. 18:00 Reassessment: Patient appears in no apparent distress at this time. pt reports jl7 decreased pain, rated 3/10 Patient states feeling better. Vital Signs: 16:35 BP 108 / 47; Pulse 79; Resp 18; Temp 97.8(TE); Pulse Ox 96% on R/A; Weight 56.7 kg; hj Height 5 ft. 0 in. (152.40 cm); 18:15 BP 133 / 51; Pulse 74; Resp 16 S; Pulse Ox 96% on R/A; jl7 16:35 Body Mass Index 24.41 (56.70 kg, 152.40 cm) ED Course: 16:26 Patient arrived in ED. cl3 16:33 Triage completed. hj 16:36 Arm band placed on left wrist. hj 16:37 Dina Lynn FNP-C [facility]. snw 16:37 Link Aldrich MD is Attending Physician. snw 16:54 Allie Harper, LESLIE is Primary Nurse. jl7 17:17 Initial lab(s) drawn, by mi, sent to lab. jb1 17:36 CT Traumagram (Head C Spine CAP wo con) In Process Unspecified. EDMS 18:00 Patient has correct armband on for positive identification. Bed in low position. Call jl7 light in reach. Side rails up X 1. 18:41 Kiel Mallory MD is Referral Physician. snw 19:02 No provider procedures requiring assistance completed. Patient did not have IV access jl7 during this emergency room visit. Administered Medications: 17:26 Drug: fentaNYL (PF) 25 mcg Route: IM; Site: left deltoid; jl7 17:55 Follow up: Response: No adverse reaction; Pain is decreased jl7 Outcome: 18:42 Discharge ordered by . snw 19:02 Discharged to home via wheelchair, with family. jl7 19:02 Condition: stable 19:02 Discharge instructions given to patient, family, Instructed on discharge instructions, follow up and referral plans. medication usage, Demonstrated understanding of instructions, follow-up care, medications, Prescriptions given X 1. 19:03 Patient left the ED. jl7 Signatures: Dispatcher [employer] EDMS Tio Guadarrama jb1 Dina Lynn, COLLECTION TEAM LEAD-C COLLECTION TEAM LEAD-Csnw Naun Post RN LESLIE Allie Harper RN RN jl7 Andres Segura cl3 Corrections: (The following items were deleted from the chart) 16:37 16:31 Presenting complaint: niece: "i fell last night off the bed on to the R side, hit hj her head, denies LOC, now she's complaining of R shoulder, R upper and R lower pain; hj 16:37 16:35 Resp 18bpm; Pulse Ox 96% RA; Temp 97.8F Temporal; 56.7 kg; Height 5 ft. 0 in.; hj BMI: 24.4; 16:37 16:35 BP 99 / 47; Pulse 79bpm; Resp 18bpm; Pulse Ox 96% RA; Temp 97.8F Temporal; 56.7 hj kg; Height 5 ft. 0 in.; BMI: 24.4; hj 16:38 16:31 Presenting complaint: niece: "i fell last night off the bed on to the R side, hit hj her head, denies LOC, now she's complaining of R shoulder, R upper and R lower pain; denies headache, denies N/V; hj
[2019-02-20 19:07] VITALS: TEMP 97.8; O2SAT 96
[2019-02-20 19:08] VITALS: BP 133/51
--- NOTE | 2019-02-20 19:36 | RAD REPORT ---
EXAM DESCRIPTION: CT - Head C Spine Cap Wo Con - 02/20/2019 5:37 pm CLINICAL HISTORY: Fall, head, neck, chest and abdomen pain Technical issues precluded immediate review of the images and precluded dictation of the report. Prel iminary findings were telephoned to the referring clinician. COMPARISON: None. TECHNIQUE: Axial [address] head images were obtained. Axial [address] cervical spine images were obtain ed with sagittal and coronal reconstruction images reviewed. Axial 5 mm images of the chest, abdomen and pelvis were obtained. All CT scans are performed using dose optimization technique as appropriate and may include automated exposure control or mA/KV adjustment according to patient size. FINDINGS: No intracranial hemorrhage, mass or edema. No midline shift or abnormal fluid collection. Mastoid air cells and paranasal sinuses are clear. No skull fracture. Cervical bodies are normal in height and alignment. No fracture or acute bone finding.C5-6 and C6-7 d isc space narrowing present.No prevertebral soft tissue thickening or paraspinal mass.Central canal d etail is inherently limited on CT imaging. Large right pleural effusion is present occupying approximately 50% of the right hemithorax. This is homogeneous fluid attenuation and not suspected to be related to the patient's fall and right-sided p ain. Patient has a minimal pleural effusion on the left. There is no pneumothorax. Hazy ground-glass opacities are present and could be part of alveolar edema from heart failure. Infectious/inflammatory etiology is possible but felt to be lesser in likelihood. No mediastinal mass or hematoma suspecte d. No endobronchial lesion. Coronary artery calcifications and aortic calcifications are present. No displaced aortic calcifications. Patient has enlargement of the left atrium and possibly left ventric ular enlargement. Noncontrast imaging is limited. No pericardial effusion. No chest wall mass. Patient has no displaced rib fractures and no nondisplaced rib fractures confirm ed. Right shoulder girdle is not fully assessed. However, there does appear to be a nondisplaced frac ture of the head of the clavicle at the AC joint. Coracoid process of the scapula also appears to be fractured without displacement. A posterior right humeral head fracture is present. No dislocation of the humeral head. CT abdomen and pelvis show no injury to solid abdominal viscera. Gallbladder and biliary tree are unr emarkable. No bowel injury or significant finding. No free air, free fluid or abnormal stranding. No mass or bulky lymphadenopathy. The patient has a 4 centimeter fat only periumbilical hernia with a 2. 5 centimeter neck. No bowel involvement. No urinary bladder abnormality. No pelvic fracture identified. No fracture or dislocation of either proximal femur. Reconstruction im aging shows partial compression fracture of every thoracic and lumbar vertebral body. There is bony f oraminal encroachment at L5-S1. Sclerotic changes are present in the collapsed T10 body. This is not suspected to be a blastic process. IMPRESSION: No hemorrhage, edema or acute intracranial finding. Patient has no significant for age a trophy or chronic ischemic change. Cervical spine degenerative change present as detailed. No acute findings seen. Large right pleural effusion occupying 50% of the right hemithorax. This is believed to predate the i njury. No displaced rib fracture present and no nondisplaced rib fractures suspected. Interstitial and alveolar opacities in the lung parenchyma that could be atelectasis or mild alveolit is. Edema from heart failure is possible. The patient has left atrial enlargement and probable left v entricular enlargement. Clavicle fracture at the AC joint and coracoid process fracture without displacement. Nondisplaced ri ght humeral head fracture also present without dislocation. No significant CT Abdomen and Pelvis finding. No other acute bone process. Patient has some degree of compression fracture deformity involving ever y thoracic and lumbar vertebral body. These are believed be all osteoporotic compression fractures.
== END 2019-02-20 19:03 | disposition home or self-care (01) ==
LOC: ER 16:25
DX: S42.201A Unspecified fracture of upper end of right humerus, initial encounter for closed fracture (principal); S42.131A Displaced fracture of coracoid process, right shoulder, initial encounter for closed fracture; S42.001A Fracture of unspecified part of right clavicle, initial encounter for closed fracture; W06.XXXA Fall from bed, initial encounter; I10 Essential (primary) hypertension; E78.5 Hyperlipidemia, unspecified; Z86.718 Personal history of other venous thrombosis and embolism
CPT/HCPCS: 36415; 70450; 71250; 72125; 80048; 82550; 85025; 96372; 99284; J3010